=== PATIENT | female | born 1970 | race African-American/Black ===

== ENCOUNTER 2019-11-12 16:22 | Outpatient (CLI) | payer OTHER, SELFPAY ==
[2019-11-12 16:59] LABS: Basophils Percent Auto 0.2 % (0.2-1.2); Eosinophils Absolute Auto 0.1 K/mm3 (0-0.3); Eosinophils Percent Auto 1.7 % (0-4.4); Hematocrit 38.7 % (37.0-47.0); Hemoglobin 12.1 g/dL (12.0-15.0); Immature Granulocyte Absolute 0.02 K/mm3 (0.00-0.031); Immature Granulocyte Percent A 0.2 % (0-0.5); Lymphocytes Absolute Auto 2.71 K/mm3 (0.9-3.2); Lymphocytes Percent Auto 32.8 % (18.3-44.2); Mean Corpuscular HGB Conc 31.3 g/dl (32-36); Mean Corpuscular Hemoglobin 24.1 pg (26-34); Mean Corpuscular Volume 77.1 fl (80-100); Mean Platelet Volume 9.8 fl (7.4-10.4); Monocytes Absolute Auto 0.8 K/mm3 (0.1-0.6); Monocytes Percent Auto 9.8 % (2.6-8.5); Neutrophils Absolute Auto 4.6 K/mm3 (1.3-6.7); Neutrophils Percent Auto 55.3 % (45.5-73.1); Platelet Count Result 319 k/mm3 (150-375); Red Blood Count 5.02 M/mm3 (4.2-5.4); White Blood Count 8.3 K/mm3 (4.5-10.0)
[2019-11-12 19:13] LABS: Iron 58 ug/dL (37-170)
[2019-11-12 19:33] LABS: Percent Iron Saturation 18 % (20-50)
== END 2019-11-12 16:23 | disposition home or self-care (01) ==
LOC: ANHLAB 16:23
PROVIDERS: PCP Nurse Practitioner Adult Health; Visit Provider Internal Medicine Hematology & Oncology
DX: D64.9 Anemia, unspecified (principal)
CPT/HCPCS: 36415; 82728; 83540; 83550; 85025

== ENCOUNTER 2020-07-21 17:22 | Outpatient (CLI) | payer OTHER, SELFPAY ==
--- NOTE | ~2020-07-21 | MM_ITS ---
EXAMINATION: MM screening nolan BI w kenneth HISTORY: Screening TECHNIQUE: Craniocaudal and mediolateral oblique 3-D tomosynthesis images were obtained and synthetic 2-D images were generated. CAD analysis was submitted and interpreted. COMPARISON: Comparison to multiple prior studies sequentially, with oldest reviewed study dated 05/31. BREAST PARENCHYMAL COMPOSITION: There are scattered areas of fibroglandular density. FINDINGS: There is no evidence of suspicious mass, calcification, or architectural distortion to sugg est malignancy in either breast. There has been no suspicious interval change. IMPRESSION: 1. No mammographic evidence of malignancy. 2. Recommend routine screening mammography in one year. BI-RADS Category 1: Negative Reviewed, dictated and finalized at location [facility].
== END 2020-07-21 17:23 | disposition home or self-care (01) ==
PROVIDERS: PCP Nurse Practitioner Adult Health; Visit Provider Nurse Practitioner Adult Health
DX: Z12.31 Encounter for screening mammogram for malignant neoplasm of breast (principal)
CPT/HCPCS: 77063; 77067

== ENCOUNTER 2020-08-18 12:33 | Outpatient (CLI) | payer OTHER, SELFPAY ==
[2020-08-21 12:59] LABS: DHEA-Sulfate 76 mcg/dL (19-231)
[2020-08-22 10:06] LABS: Testosterone Total 84 ng/dL (2-45)
[2020-08-24 10:55] LABS: Estradiol, Ultrasensitive 19 pg/mL; FSH 48.9 mIU/mL (***); LH 22.3 mIU/mL (***); Progesterone <0.2 ng/mL (***); Prolactin 53.5 ng/mL (***)
== END 2020-08-18 12:34 | disposition home or self-care (01) ==
LOC: ANHLAB 12:34
PROVIDERS: PCP Nurse Practitioner Adult Health; Visit Provider Student in an Organized Health Care Education/Training Program
DX: N92.6 Irregular menstruation, unspecified (principal)
CPT/HCPCS: 36415; 82627; 82670; 83001; 83002; 84144; 84146; 84403; 84443

== ENCOUNTER 2020-08-27 16:21 | Outpatient (CLI) | payer OTHER, SELFPAY ==
--- NOTE | ~2020-08-27 | US_ITS ---
EXAMINATION: US pelvic complete w TV DATE: 08/27/2020 17:01 INDICATION: Irregular menstruation. TECHNIQUE: Multiple transabdominal and endovaginal sonographic images of the pelvis were obtained. COMPARISON: None. FINDINGS: The uterus measures 5.8 x 3.6 x 2.5 cm. The endometrial complex measures 3 mm in thickness which is normal. 1.7 x 1.8 x 1.5 cm subserosal fibroid extending cephalad from the uterine fundus. The right o vary measures 1.8 x 2.1 x 1.6 cm. The left ovary measures 1.5 x 1.3 x 2.4 cm. Vascular flow identifie d at both ovaries on color Doppler. There is no free fluid in the pelvis. IMPRESSION: 1. 1.8 cm subserosal fibroid at the uterine fundus. Reviewed, dictated and finalized at [facility]. 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
== END 2020-08-27 16:22 | disposition home or self-care (01) ==
PROVIDERS: PCP Nurse Practitioner Adult Health; Visit Provider Student in an Organized Health Care Education/Training Program
DX: N92.6 Irregular menstruation, unspecified (principal); D25.9 Leiomyoma of uterus, unspecified
CPT/HCPCS: 76830; 76856

== ENCOUNTER 2020-10-31 13:32 | Outpatient (CLI) | payer OTHER, SELFPAY ==
[2020-10-31 14:39] LABS: Total Triiodothyronine (T3) 1.25 NG/ML (0.97-1.69)
== END 2020-10-31 13:33 | disposition home or self-care (01) ==
PROVIDERS: PCP Nurse Practitioner Adult Health; Visit Provider Student in an Organized Health Care Education/Training Program
DX: N92.6 Irregular menstruation, unspecified (principal)
CPT/HCPCS: 36415; 84439; 84443; 84480

== ENCOUNTER 2020-11-20 12:38 | Outpatient (CLI) | payer OTHER, SELFPAY | END 2020-11-20 12:39 | disposition home or self-care (01) | PROVIDERS: PCP Nurse Practitioner Adult Health; Visit Provider Student in an Organized Health Care Education/Training Program | DX: N92.6 Irregular menstruation, unspecified (principal) | CPT/HCPCS: 36415; 83520 ==

== ENCOUNTER 2021-08-02 08:37 | Outpatient (CLI) | payer OTHER, SELFPAY ==
--- NOTE | ~2021-08-02 | MM_ITS ---
EXAMINATION: MM screening nolan BI w kenneth HISTORY: Screening mammogram TECHNIQUE: Craniocaudal and mediolateral oblique 3-D tomosynthesis images were obtained and synthetic 2-D images were generated. CAD analysis was submitted and interpreted. COMPARISON: No prior mammogram is available for comparison at this institution. BREAST PARENCHYMAL COMPOSITION: There are scattered areas of fibroglandular density. FINDINGS: There is no evidence of suspicious mass, calcification, or architectural distortion to sugg est malignancy in either breast. There has been no suspicious interval change. IMPRESSION: 1. No mammographic evidence of malignancy. 2. Recommend routine screening mammography in one year. BI-RADS Category 1: Negative Reviewed, dictated and finalized at location A.
== END 2021-08-02 08:38 | disposition home or self-care (01) ==
LOC: ANHIMG 08:37
PROVIDERS: PCP Nurse Practitioner Adult Health; Visit Provider Nurse Practitioner Adult Health
DX: Z12.31 Encounter for screening mammogram for malignant neoplasm of breast (principal)
CPT/HCPCS: 77063; 77067

== ENCOUNTER 2021-09-09 12:22 | Outpatient (CLI) | payer OTHER, SELFPAY ==
--- NOTE | ~2021-09-09 | MM_ITS ---
EXAMINATION: MM diagnostic nolan LT w kenneth HISTORY: Left breast pain TECHNIQUE: ML, MLO and craniocaudal 3-D tomosynthesis images of left breast were performed and synthe tic 2-D images were generated. Rotated lateral craniocaudal view of left breast. CAD analysis was sub mitted and interpreted. COMPARISON: 08/02/2021, 07/21/2020, 07/18/2019bilateral screening mammogram examinations BREAST PARENCHYMAL COMPOSITION: The breasts are almost entirely fatty. FINDINGS: No suspicious mass or architectural distortion, malignant calcification, skin thickening or retraction or significant new or developing density is detected. IMPRESSION: 1. No mammographic evidence of malignancy 2. Routine mammographic screening is recommended BI-RADS Category 1: Negative Reviewed, dictated and finalized at location A. 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
== END 2021-09-09 12:23 | disposition home or self-care (01) ==
PROVIDERS: PCP Nurse Practitioner Adult Health; Visit Provider Student in an Organized Health Care Education/Training Program
DX: N64.4 Mastodynia (principal)
CPT/HCPCS: 77061; 77065; G0279

== ENCOUNTER → 2021-10-08 00:11 | Outpatient (CLI) | payer OTHER, SELFPAY ==
[2021-10-09 16:52] LABS: SARS-CoV-2 RNA PCR Negative
== END ==
PROVIDERS: PCP Nurse Practitioner Adult Health; Visit Provider Internal Medicine Gastroenterology
DX: Z01.812 Encounter for preprocedural laboratory examination (principal); Z20.822 Contact with and (suspected) exposure to COVID-19
CPT/HCPCS: C9803; U0003; U0005

== ENCOUNTER 2021-10-11 00:51 | Day surgery (SDC) | payer OTHER, SELFPAY ==
[2021-09-23 14:02] VITALS: BMI 32.4
[2021-10-11 06:17] VITALS: BP 135/90; PULSE 95; RESP 18; TEMP 36.8; O2SAT 99; BMI 32.1
[2021-10-11] MEDS: LACTATED RINGERS 1,000 ML 150 ML IV CONT (06:43)
--- NOTE | 2021-10-11 07:04 | WPDANESEPPF ---
Anes - Initial Pre Proc Eval Procedure: Operation Date: 10/11/21 07:30 Proposed Procedures p Screening Colonoscopy - Binh Ramirez MD Date/Time: 10/11/21 07:04 Surgeon: Binh Ramirez MD Pre Op Diagnosis: neoplasm screening Patient Data Age: 51 Gender: F Height: 1.65 m Weight: 87.6 kg Last Vital Signs Temp 36.8 C 10/11/21 06:17 Pulse 95 10/11/21 06:17 Resp 18 10/11/21 06:17 BP 135/90 10/11/21 06:17 Pulse Ox 99 10/11/21 06:17 Allergies Allergy/AdvReac Type Severity Reaction Status Date / Time dexlansoprazole Allergy Severe Hives / Verified 10/11/21 06:27 Red Face pregabalin Allergy Severe Anaphylactic Verified 10/11/21 06:27 Shock wheat Allergy Severe GI ISSUES Verified 10/11/21 06:27 lactose Allergy Intermediate GI ISSUES Verified 10/11/21 06:27 topiramate Allergy Intermediate Rash Verified 10/11/21 06:27 cimetidine Allergy Mild HIVES Verified 10/11/21 06:27 Penicillins Allergy Mild HIVES, Verified 10/11/21 06:27 ITCHING ranitidine Allergy Mild HIVES Verified 10/11/21 06:27 tramadol Allergy Mild SWELLING Verified 10/11/21 06:27 LOWER EXTREMITIES. TRIMETHOBENZAMIDE HCL Allergy Unknown Abdominal Uncoded 10/11/21 06:27 Pain PAPER TAPE AdvReac Severe SKIN Uncoded 10/11/21 06:27 IRRITATION TO SITE Home Medications Medication Instructions Recorded Confirmed Type Lactobacillus rhamnosus GG 5 5,000 mmu cells PO DAILY 08/18/20 10/11/21 History billion cell chewable tablet albuterol sulfate 90 mcg/actuation 1 inh INHALATION Q4H 08/18/20 10/11/21 History aerosol inhaler ascorbate calcium (vitamin C) 500 500 mg PO DAILY 08/18/20 10/11/21 History mg tablet biotin 5,000 mcg disintegrating 10,000 mcg PO DAILY 08/18/20 10/11/21 History tablet cholecalciferol (vitamin D3) 125 125 mcg PO DAILY 08/18/20 10/11/21 History mcg (5,000 unit) capsule esomeprazole magnesium 20 mg 20 mg PO DAILY 08/18/20 10/11/21 History capsule,delayed release ferrous sulfate 325 mg (65 mg 325 mg PO DAILY 08/18/20 10/11/21 History iron) tablet multivitamin 1 tablet PO DAILY 08/18/20 10/11/21 History vitamins A,C,Z-iihs-ivbjzv 14,320 1 cap PO BID 08/20/21 10/11/21 History unit-226 mg-200 unit capsule Patient hx anesthesia problems: none Family hx anesthesia problems: none Results Review: All pre-operative results and documents have been reviewed as part of the pre-operative evaluation. [facility] Past Medical History Medical History Abnormal uterine bleeding Anemia Angina at rest Anxiety Asthma Bulging disc Depression Diabetes Dry senile macular degeneration Fibromyalgia Fractures toe GERD (gastroesophageal reflux disease) Hyperlipidemia Hypertension Nuclear age-related cataract, both eyes Sleep difficulties Ulcer Surgical History Surgical History H/O dilation and curettage Hx of cholecystectomy Family History Family History Grandparent Heart disease Diabetes mellitus Hypertension Social History Social History Smoking status: Never smoker Gender identity (if verbalized by the patient): Female Anes - Eval Final PreProcedure Day of Procedure 10/11/21 07:04 Patient weight: obese Heart: regular rate and rhythm Lungs: clear to auscultation Airway: Mallampati scale class II Neurological: alert and oriented Last oral intake: >/= 8 hours ASA classification: III Emergent: no Anesthetic plan: proceed Anesthesia type and monitoring: general GIVS and standard monitoring Results Review: All pre-operative results and documents have been reviewed as part of the pre-operative evaluation. Informed Consent: The patient's anesthetic plan and its attendant risks and benefits were discussed with maryanne
--- NOTE | 2021-10-11 07:23 | PM.HPGS ---
History of Present Illness History of Present Illness Consent: Risks, benefits, and alternatives have been discussed and questions answered. Patient agrees to proceed with procedure. Chief complaint: neoplasm screening Narrative: Marcellus Aguila is a 51 year old female here for first screening colonoscopy Review of Systems Constitutional: Constitutional: Denies headache(s) and Denies weakness Eyes: Eyes: Denies blurry vision ENT: Reports Normal hearing present, Denies headache(s) and Denies neck pain Cardiovascular: Cardiovascular: Denies chest pain and Denies dyspnea Respiratory: Respiratory: Denies dyspnea Gastrointestinal: Gastrointestinal: Reports no additional gastrointestinal complaints Genitourinary: Genitourinary: Denies dysuria Musculoskeletal: Musculoskeletal: Denies neck pain Integumentary/Breasts: Skin/Breast: Denies dry skin Neurologic: Reports Normal hearing present, Denies headache(s) and Denies weakness Psychiatric: Psychiatric: Denies anxiety Endocrine: Endocrine: Denies change in body appearance Hematologic/Lymphatic: Hematologic/Lymphatic: Denies easy bleeding Allergic/Immunologic: Allergic/Immunologic: Denies urticaria [facility] Past Medical History Medical History (Updated 10/11/21 @ 07:24 by Binh Ramirez MD) Abnormal uterine bleeding Anemia Angina at rest Anxiety Asthma Bulging disc Colon cancer screening Depression Diabetes Dry senile macular degeneration Fibromyalgia Fractures toe GERD (gastroesophageal reflux disease) Hyperlipidemia Hypertension Nuclear age-related cataract, both eyes Sleep difficulties Ulcer Surgical History Surgical History H/O dilation and curettage Hx of cholecystectomy Family History Family History Grandparent Heart disease Diabetes mellitus Hypertension Social History Social History Smoking status: Never smoker Gender identity (if verbalized by the patient): Female Meds Home Medications and Allergies Home Medications Medication Instructions Recorded Confirmed Type Lactobacillus rhamnosus GG 5 5,000 mmu cells PO DAILY 08/18/20 10/11/21 History billion cell chewable tablet albuterol sulfate 90 mcg/actuation 1 inh INHALATION Q4H 08/18/20 10/11/21 History aerosol inhaler ascorbate calcium (vitamin C) 500 500 mg PO DAILY 08/18/20 10/11/21 History mg tablet biotin 5,000 mcg disintegrating 10,000 mcg PO DAILY 08/18/20 10/11/21 History tablet cholecalciferol (vitamin D3) 125 125 mcg PO DAILY 08/18/20 10/11/21 History mcg (5,000 unit) capsule esomeprazole magnesium 20 mg 20 mg PO DAILY 08/18/20 10/11/21 History capsule,delayed release ferrous sulfate 325 mg (65 mg 325 mg PO DAILY 08/18/20 10/11/21 History iron) tablet multivitamin 1 tablet PO DAILY 08/18/20 10/11/21 History vitamins A,C,R-uctk-fwmomj 14,320 1 cap PO BID 08/20/21 10/11/21 History unit-226 mg-200 unit capsule Allergies Allergy/AdvReac Type Severity Reaction Status Date / Time dexlansoprazole Allergy Severe Hives / Verified 10/11/21 06:27 Red Face pregabalin Allergy Severe Anaphylactic Verified 10/11/21 06:27 Shock wheat Allergy Severe GI ISSUES Verified 10/11/21 06:27 lactose Allergy Intermediate GI ISSUES Verified 10/11/21 06:27 topiramate Allergy Intermediate Rash Verified 10/11/21 06:27 cimetidine Allergy Mild HIVES Verified 10/11/21 06:27 Penicillins Allergy Mild HIVES, Verified 10/11/21 06:27 ITCHING ranitidine Allergy Mild HIVES Verified 10/11/21 06:27 tramadol Allergy Mild SWELLING Verified 10/11/21 06:27 LOWER EXTREMITIES. TRIMETHOBENZAMIDE HCL Allergy Unknown Abdominal Uncoded 10/11/21 06:27 Pain PAPER TAPE AdvReac Severe SKIN Uncoded 10/11/21 06:27 IRRITATION TO SITE Vital Signs Vital Signs - 24 hr
[2021-10-11 07:41] VITALS: BP 105/72; PULSE 94; RESP 16; O2SAT 100
[2021-10-11 07:51] VITALS: BP 114/77; PULSE 78; RESP 15; O2SAT 98
[2021-10-11 08:01] VITALS: BP 131/90; PULSE 83; RESP 17; O2SAT 97
== END 2021-10-11 08:26 | disposition home or self-care (01) ==
PROVIDERS: PCP Nurse Practitioner Adult Health; Visit Provider Internal Medicine Gastroenterology
PROC: 0DJD8ZZ Inspection of Lower Intestinal Tract, Via Natural or Artificial Opening Endoscopic (ICD-10-PCS; CPT 45378; principal; 2021-10-11 07:30)
DX: Z12.11 Encounter for screening for malignant neoplasm of colon (principal); K57.30 Diverticulosis of large intestine without perforation or abscess without bleeding; D64.9 Anemia, unspecified; F32.9 Major depressive disorder, single episode, unspecified; E11.9 Type 2 diabetes mellitus without complications; K21.9 Gastro-esophageal reflux disease without esophagitis; M79.7 Fibromyalgia; I10 Essential (primary) hypertension; E78.5 Hyperlipidemia, unspecified; I20.8 Other forms of angina pectoris; Z79.51 Long term (current) use of inhaled steroids; F41.8 Other specified anxiety disorders; Z90.49 Acquired absence of other specified parts of digestive tract
CPT/HCPCS: 45378; J2704; J7120

== ENCOUNTER 2022-05-25 09:11 | Outpatient (CLI) | payer OTHER, SELFPAY ==
--- NOTE | 2022-05-31 07:52 | WPDHOLTEREM ---
Holter/Event Monitor Holter/Event Monitor Date of procedure: 05/25/22 Holter/Event Procedure: 48 Hr Holter Monitor Indications: Palpitations Conclusion: 1. 48 hour holter monitor on 05/25/22. 2. Underlying rhythm is sinus rhythm. HR range 44-156 bpm; average HR 85 bpm. HR at 44 bpm was at 06:20. HR at 156 bpm was at 08:00. 3. There are 12 premature supraventricular complexes. No supraventricular tachycardia. 4. No premature ventricular complexes. No ventricular tachycardia. 5. No sinoatrial or atrioventricular blocks. No significant pauses greater than 2 seconds. 6. No symptoms available for correlation.
== END 2022-05-25 09:12 | disposition home or self-care (01) ==
LOC: ANHCARD 09:14
PROVIDERS: PCP Nurse Practitioner Adult Health; Visit Provider Nurse Practitioner Adult Health
DX: R00.2 Palpitations (principal)
CPT/HCPCS: 93225; 93226

== ENCOUNTER 2022-07-03 12:38 | Emergency (ER) | payer OTHER, SELFPAY ==
--- NOTE | ~2022-07-03 | CT_ITS ---
EXAMINATION: CTA chest PE protocol DATE: 07/03/2022 14:58 INDICATION: Hemoptysis, chest pain, midsternal pressure, shortness of breath, tachycardia. TECHNIQUE: Computed tomography angiography (CTA) of the chest was performed with 100 mL Omnipaque-350 intravenous contrast timed to evaluate the pulmonary arteries. Coronal maximum intensity projection 3D-reconstructions were created by the technologist. Automated exposure control and iterative reconst ruction technique were employed. Exam dose: 618.56 mGy-cm total exam DLP. COMPARISON: 01/05/2018 PA and lateral chest FINDINGS: There is diagnostic contrast enhancement of the pulmonary arteries and no evidence of pulmo nary embolism. No thoracic aortic aneurysm or dissection. No pericardial or pleural effusion. No hilar or mediastinal mass lesion or lymphadenopathy. Thyroid goiter with enlargement, heterogeneous enhancement and substernal extension. No pulmonary consolidation or pulmonary mass lesion or pneumothorax. Normal morphology of the adrenal glands. Status post cholecystectomy. Diverticulosis of the colon. Degenerative spurring of the thoracic spine. No suspicious osteolytic or osteoblastic lesions. IMPRESSION: No evidence of pulmonary embolism Thyroid goiter with substernal extension Status post cholecystectomy Diverticulosis of the colon Reviewed, dictated and finalized at [facility]. Reviewed, dictated and finalized at location A.
[2022-07-03 12:41] VITALS: BP 133/82; PULSE 100; RESP 16; TEMP 36.2; O2SAT 100
--- NOTE | 2022-07-03 13:18 | ECG_ITS ---
Measurements Intervals [place] Rate: 93 P: 41 WA: 130 QRS: 19 QRSD: 93 T: 38 QT: 360 QTc: 450 Interpretive Statements SINUS RHYTHM LEFT VENTRICULAR HYPERTROPHY MINIMAL Q WAVES- HIGH LATERAL LEADS NONSPECIFIC T-WAVE ABNORMALITY- ANTEROLAT/INF LEADS BORDERLINE ECG NO PREVIOUS ECG AVAILABLE FOR COMPARISON Electronically Signed On 07-03-2022 13:56:12 CDT by Carl Madera D.O.
--- NOTE | 2022-07-03 13:19 | ED.URI ---
HPI - URI/Sore Throat General Chief Complaint: Upper Respiratory Infection Stated Complaint: COVID + 6 days ago - shortness of breath - cough Time Seen by Provider: 07/03/22 13:06 History of Present Illness HPI Narrative: Patient is a 51-year-old female with a history of asthma and diabetes here for evaluation of chest pain, shortness of breath for the past several days and hemoptysis for the past day in the setting of a positive COVID test 6 days ago. Patient was seen by her primary care doctor upon symptom onset and was given prednisone taper with slight improvement of her upper respiratory symptoms, but she presents today to be evaluated for the hemoptysis. She states that occasionally when she coughs she notes a pink tinge to the sputum with red streaks along the side. Has had several nosebleeds recently. No nausea, vomiting, fevers, chills, leg swelling. Related Data Home Medications Medication Instructions Recorded Confirmed Lactobacillus rhamnosus GG 5 5,000 mmu cells PO DAILY 08/18/20 10/11/21 billion cell chewable tablet ([employer] albuterol sulfate 90 mcg/actuation 1 inh inhalation Q4H 08/18/20 10/11/21 aerosol inhaler (Proventil HFA) ascorbate calcium (vitamin C) 500 500 mg PO DAILY 08/18/20 10/11/21 mg tablet biotin 5,000 mcg disintegrating 10,000 mcg PO DAILY 08/18/20 10/11/21 tablet cholecalciferol (vitamin D3) 125 125 mcg PO DAILY 08/18/20 10/11/21 mcg (5,000 unit) capsule esomeprazole magnesium 20 mg 20 mg PO DAILY 08/18/20 10/11/21 capsule,delayed release (Nexium) ferrous sulfate 325 mg (65 mg 325 mg PO DAILY 08/18/20 10/11/21 iron) tablet (Feosol) multivitamin (Daily Multi-Vitamin 1 tablet PO DAILY 08/18/20 10/11/21 tablet) vitamins A,C,O-ojdu-pslgvv 14,320 1 cap PO BID 08/20/21 10/11/21 unit-226 mg-200 unit capsule (PreserVision AREDS) Allergies Allergy/AdvReac Type Severity Reaction Status Date / Time dexlansoprazole Allergy Severe Hives / Verified 10/11/21 06:27 Red Face pregabalin Allergy Severe Anaphylactic Verified 10/11/21 06:27 Shock wheat Allergy Severe GI ISSUES Verified 10/11/21 06:27 lactose Allergy Intermediate GI ISSUES Verified 10/11/21 06:27 topiramate Allergy Intermediate Rash Verified 10/11/21 06:27 cimetidine Allergy Mild HIVES Verified 10/11/21 06:27 Penicillins Allergy Mild HIVES, Verified 10/11/21 06:27 ITCHING ranitidine Allergy Mild HIVES Verified 10/11/21 06:27 tramadol Allergy Mild SWELLING Verified 10/11/21 06:27 LOWER EXTREMITIES. adhesive tape AdvReac Severe PAPER Verified 07/03/22 15:32 TAPE=SKIN IRRITATION TO SITE trimethobenzamide AdvReac Unknown Abdominal Verified 07/03/22 15:32 Pain Review of Systems Review of Systems: Gen: Denies fevers or chills Eyes: Denies eye pain or visual change ENT: reports nosebleed and congestion. Respiratory: reports cough, SOB CV: Denies chest pain or palpitations GI: Denies abdominal pain nausea, emesis or diarrhea : denies burning, urgency, frequency or hematuria Musculoskeletal: Denies back pain or muscle pain Neuro: denies numbness, tingling, weakness or focal weakness Skin: Denies rash Except as documented, all other systems reviewed and negative [facility] Past Medical History Medical History Abnormal uterine bleeding Anemia Angina at rest Anxiety Asthma Bulging disc Colon cancer screening Depression Diabetes Dry senile macular degeneration Fibromyalgia Fractures toe GERD (gastroesophageal reflux disease) Hyperlipidemia Hypertension Nuclear age-related cataract, both eyes Sleep difficulties Ulcer Surgical History Surgical History H/O dilation and curettage Hx of cholecystectomy Family History Family History Grandparent Heart disease Diabetes
[2022-07-03 13:36] LABS: Basophils Percent Auto 0.2 % (0.2-1.2); Eosinophils Absolute Auto 0.1 K/mm3 (0-0.3); Eosinophils Percent Auto 0.7 % (0-4.4); Hematocrit 43.7 % (37.0-47.0); Hemoglobin 13.8 g/dL (12.0-15.0); Immature Granulocyte Absolute 0.07 K/mm3 (0.00-0.031); Immature Granulocyte Percent A 0.7 % (0-0.5); Lymphocytes Absolute Auto 3.49 K/mm3 (0.9-3.2); Mean Corpuscular HGB Conc 31.6 g/dl (32-36); Mean Corpuscular Hemoglobin 25.7 pg (26-34); Mean Corpuscular Volume 81.5 fl (80-100); Mean Platelet Volume 9.6 fl (7.4-10.4); Monocytes Absolute Auto 0.6 K/mm3 (0.1-0.6); Neutrophils Percent Auto 58.4 % (45.5-73.1); Platelet Count Result 316 k/mm3 (150-375); Red Blood Count 5.36 M/mm3 (4.2-5.4); Red Cell Distribution Width 14.1 % (11.5-14.5); White Blood Count 10.3 K/mm3 (4.5-10.0)
[2022-07-03 13:47] LABS: INR 1.1; Prothrombin Time 13.8 Seconds (11.1-14.7)
[2022-07-03 13:48] LABS: Partial Thromboplastin Time 24.8 SECONDS (22.3-36.8)
[2022-07-03 13:50] LABS: Alanine Aminotransferase 52 U/L (6-35); Albumin Level 4.3 g/dL (3.5-5.1); Alkaline Phosphatase 69 U/L (38-126); Anion Gap 9 mmol/L (8-16); Aspartate Amino Transferase 40 U/L (14-36); Bilirubin,Total 0.6 mg/dL (0.2-1.3); Blood Urea Nitrogen 15 mg/dL (7-17); Calcium 8.8 mg/dL (8.4-10.2); Carbon Dioxide 25 mmol/L (22-30); Chloride 104 mmol/L (98-107); Estimated CRCL calculation 80 ml/min; Estimated Glomerular Filt Rate > 60; Glucose 175 mg/dL (65-110); Potassium 3.4 mmol/L (3.4-5.0); Sodium 138 mmol/L (137-145)
[2022-07-03 14:01] LABS: Troponin I < 0.012 ng/mL (0.000-0.034)
[2022-07-03] MEDS: ALBUTEROL SULFATE NEB 2.5 MG/3 ML INH 5 MG INHALATION (15:38)
[2022-07-03 17:00] VITALS: BP 121/78; PULSE 80; RESP 16; O2SAT 100
== END 2022-07-03 17:06 | disposition home or self-care (01) ==
PROVIDERS: Physician Assistant; Emergency Provider Emergency Medicine; PCP Nurse Practitioner Adult Health
DX: U07.1 COVID-19 (principal); J06.9 Acute upper respiratory infection, unspecified; E11.9 Type 2 diabetes mellitus without complications; M79.7 Fibromyalgia; K21.9 Gastro-esophageal reflux disease without esophagitis; E78.5 Hyperlipidemia, unspecified; I10 Essential (primary) hypertension; Z86.2 Personal history of diseases of the blood and blood-forming organs and certain disorders involving the immune mechanism; R94.31 Abnormal electrocardiogram [ECG] [EKG]; E04.0 Nontoxic diffuse goiter; K57.90 Diverticulosis of intestine, part unspecified, without perforation or abscess without bleeding
CPT/HCPCS: 36415; 71275; 80053; 81025; 84484; 85025; 85610; 85730; 93005; 94640; 99284; Q9967

== ENCOUNTER 2022-08-08 09:46 | Outpatient (CLI) | payer OTHER, SELFPAY ==
--- NOTE | ~2022-08-08 | US_ITS ---
EXAMINATION: US thyroid DATE: 08/08/2022 11:02 INDICATION: Disorder of thyroid gland TECHNIQUE: Multiple ultrasound images of the thyroid were obtained. COMPARISON: 10/26/2009 FINDINGS: The right thyroid lobe measures 6.7 x 2.8 x 3.1 cm. The left thyroid lobe measures 6.2 x 2.6 x 2.9 c m. There are 3 wider than tall solid to hypoechoic nodules with partially smooth, partially indistin ct margins (TI-RADS 4, moderately suspicious , FNA if >=1.5 cm, annual followup is >=1 cm) measuring 3.0 cm and 2.8 cm in maximal diameters in the right thyroid lobe and 3.6 cm the left thyroid lobe. Th e 2 nodules in the There is normal echotexture, echogenicity and vascular flow throughout the surroun ding thyroid gland. IMPRESSION: 1. Multinodular goiter with 3 TI RADS 4 nodules measuring 2.8-3.6 cm all meeting criteria for biopsy. Recommend ultrasound-guided biopsy of the largest nodules at the inferior left thyroid. Reviewed, dictated and finalized at location [facility]. IMPRESSION: 1. Multinodular goiter with 3 TI RADS 4 nodules measuring 2.8-3.6 cm all meetin g criteria for biopsy. Recommend ultrasound-guided biopsy of the largest nodule s at the inferior left thyroid.
== END 2022-08-08 09:47 | disposition home or self-care (01) ==
PROVIDERS: PCP Nurse Practitioner Adult Health; Visit Provider Nurse Practitioner Adult Health
DX: E04.2 Nontoxic multinodular goiter (principal)
CPT/HCPCS: 76536

== ENCOUNTER 2022-08-13 09:03 | Outpatient (CLI) | payer OTHER, SELFPAY ==
--- NOTE | ~2022-08-13 | MM_ITS ---
EXAMINATION: MM screening nolan BI w kenneth HISTORY: Screening mammogram TECHNIQUE: Craniocaudal and mediolateral oblique 3-D tomosynthesis images were obtained and synthetic 2-D images were generated. CAD analysis was submitted and interpreted. COMPARISON: 09/09/2021 diagnostic left mammogram 08/02/2021, 07/21/2020, 07/18/2019 bilateral screening mammogram examinations BREAST PARENCHYMAL COMPOSITION: There are scattered areas of fibroglandular density. FINDINGS: There is no evidence of suspicious mass, calcification, or architectural distortion to sugg est malignancy in either breast. There has been no suspicious interval change. IMPRESSION: 1. No mammographic evidence of malignancy. 2. Recommend routine screening mammography in one year. BI-RADS Category 1: Negative Reviewed, dictated and finalized at location A. 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
== END 2022-08-13 09:04 | disposition home or self-care (01) ==
PROVIDERS: PCP Nurse Practitioner Adult Health; Visit Provider Nurse Practitioner Adult Health
DX: Z12.31 Encounter for screening mammogram for malignant neoplasm of breast (principal)
CPT/HCPCS: 77063; 77067

== ENCOUNTER 2022-10-06 10:34 | Emergency (ER) | payer OTHER, SELFPAY ==
--- NOTE | ~2022-10-06 | CT_ITS ---
Non-contrast CT scan of the Pelvis Clinical indication: Pain, status post fall Technique: 2.5 mm axial scans were obtained through the pelvis without intravenous or oral contrast. Dose reduction technique was used on this scan by utilizing automated exposure control and iterative reconstruction technique. The dose-length product (DLP) was 361.82 mGy-cm. Findings: Urinary bladder unremarkable. No pelvic mass seen. No lymphadenopathy. No ascites. Visualiz ed bowel loops are unremarkable. No fracture or dislocation seen. Osseous alignment is anatomic. Bilateral hip and SI joints are unrem arkable in appearance. No joint effusion evident. Impression: Unremarkable exam. No fracture or other osseous/articular abnormality seen. Reviewed, dictated and finalized at location . ING COORDINATOR Impression: Unremarkable exam. No fracture or other osseous/articular abnormality seen.
--- NOTE | ~2022-10-06 | CT_ITS ---
Noncontrast CT scan of the thoracic spine CLINICAL HISTORY: Back pain, status post fall TECHNIQUE: Axial noncontrast imaging of the thoracic spine was performed. Sagittal and coronal reform atted images were constructed. Dose reduction technique was used on this scan by utilizing automated exposure control and iterative reconstruction technique. FINDINGS: No fracture or sublocation identified. Vertebral bodies maintain normal height and alignmen t. Intervertebral disc spaces are well preserved. No disc bulge or herniation seen. No spinal canal stenosis/cord compression evident. Paravertebral so ft tissues are unremarkable. IMPRESSION: Unremarkable exam. Reviewed, dictated and finalized at location M. GER MISSION IMPRESSION: Unremarkable exam.
[2022-10-06 10:53] VITALS: BP 142/92; PULSE 83; RESP 14; TEMP 36.4; O2SAT 100
[2022-10-06] MEDS: KETOROLAC (*BKC) 60 MG/2 ML VIAL IM (13:15)
--- NOTE | 2022-10-06 13:27 | ED.FALL ---
HPI - Fall General Chief Complaint: Fall <MASOUD Heredia Last Filed: 10/06/22 14:28> Stated Complaint: FALL, ENTIRE BODY PAIN <MASOUD Heredai Last Filed: 10/06/22 14:28> Time Seen by Provider: 10/06/22 12:01 <MASOUD Heredia Last Filed: 10/06/22 14:28> Source: patient <MASOUD Heredia Last Filed: 10/06/22 14:28> Mode of arrival: ambulatory <MASOUD Heredia Filed: 10/06/22 14:28> Limitations: no limitations <MASOUD Heredia Last Filed: 10/06/22 14:28> History of Present Illness HPI Narrative: Patient is a 52 y/o female who presents to the ED with c/o low back pain. Patient reports she tripped and fell down her concrete front steps 3 days ago. She landed with her low back and tailbone against the edge of the concrete step. She did not hit her head or lose consciousness. Denied prodromal symptoms. She reports having pain from the top of her shoulders down to her feet, with most the pain centered around her low back, tailbone, and into her R hip and RLE. She has been taking Tylenol at home with minimal relief. Denies numbness, weakness, bowel or bladder incontinence, fever, abdominal pain, nausea, vomiting. <MASOUD Heredia Last Filed: 10/06/22 14:28> Related Data Home Medications: Home Medications Medication Instructions Recorded Confirmed Lactobacillus rhamnosus GG 5 5,000 mmu cells PO DAILY 08/18/20 10/11/21 billion cell chewable tablet ([employer]) albuterol sulfate 90 mcg/actuation 1 inh inhalation Q4H 08/18/20 10/11/21 aerosol inhaler (Proventil HFA) ascorbate calcium (vitamin C) 500 500 mg PO DAILY 08/18/20 10/11/21 mg tablet biotin 5,000 mcg disintegrating 10,000 mcg PO DAILY 08/18/20 10/11/21 tablet cholecalciferol (vitamin D3) 125 125 mcg PO DAILY 08/18/20 10/11/21 mcg (5,000 unit) capsule ferrous sulfate 325 mg (65 mg 325 mg PO DAILY 08/18/20 10/11/21 iron) tablet (Feosol) multivitamin (Daily Multi-Vitamin 1 tablet PO DAILY 08/18/20 10/11/21 tablet) vitamins A,C,Q-qxzt-ablnza 14,320 1 cap PO BID 08/20/21 10/11/21 unit-226 mg-200 unit capsule (PreserVision AREDS) benzonatate 200 mg capsule 200 mg PO TID 09/06/22 <MASOUD Heredia Last Filed: 10/06/22 14:28> Allergies/Adverse Reactions: Allergies Allergy/AdvReac Type Severity Reaction Status Date / Time dexlansoprazole Allergy Severe Hives / Verified 10/06/22 10:36 Red Face pregabalin Allergy Severe Anaphylactic Verified 10/06/22 10:36 Shock wheat Allergy Severe GI ISSUES Verified 10/06/22 10:36 lactose Allergy Intermediate GI ISSUES Verified 10/06/22 10:36 topiramate Allergy Intermediate Rash Verified 10/06/22 10:36 cimetidine Allergy Mild HIVES Verified 10/06/22 10:36 Penicillins Allergy Mild HIVES, Verified 10/06/22 10:36 ITCHING ranitidine Allergy Mild HIVES Verified 10/06/22 10:36 tramadol Allergy Mild SWELLING Verified 10/06/22 10:36 LOWER EXTREMITIES. adhesive tape AdvReac Severe PAPER Verified 10/06/22 10:36 TAPE=SKIN IRRITATION TO SITE trimethobenzamide AdvReac Unknown Abdominal Verified 10/06/22 10:36 Pain <Mira Mccoy PA-C - Last Filed: 10/06/22 14:28> Review of Systems Review of Systems: CONSTITUTIONAL: Denies fever, chills, or sweats. EYES: Denies visual changes. ENT: Denies rhinorrhea, congestion, sore throat. CARDIOVASCULAR: Denies chest pain. RESPIRATORY: Denies dyspnea. GASTROINTESTINAL: Denies incontinence, abdominal pain, nausea, vomiting, or diarrhea. GENITOURINARY: Denies incontinence, dysuria or hematuria. SKIN: Denies rash or itching. MUSCULOSKELETAL: Reports pain to the low back, tailbone, right hip. NEUROLOGIC: Denies head injury, LOC, headache, numbness, or weakness. <Mira Mccoy PA-C - Last Filed: 10/06/22 14:28> All systems reviewed & are unremarkable excep
== END 2022-10-06 14:33 | disposition home or self-care (01) ==
PROVIDERS: Emergency Provider Emergency Medicine; PCP Family Medicine
DX: S39.012A Strain of muscle, fascia and tendon of lower back, initial encounter (principal); S30.0XXA Contusion of lower back and pelvis, initial encounter; J45.909 Unspecified asthma, uncomplicated; E11.9 Type 2 diabetes mellitus without complications; I10 Essential (primary) hypertension; E78.5 Hyperlipidemia, unspecified; M79.7 Fibromyalgia; K21.9 Gastro-esophageal reflux disease without esophagitis; Z86.16 Personal history of COVID-19; Z86.2 Personal history of diseases of the blood and blood-forming organs and certain disorders involving the immune mechanism; W10.9XXA Fall (on) (from) unspecified stairs and steps, initial encounter
CPT/HCPCS: 72128; 72192; 96372; 99284; J1885

== ENCOUNTER 2023-02-09 13:09 | Outpatient (CLI) | payer OTHER, SELFPAY ==
--- NOTE | ~2023-02-09 | US_ITS ---
EXAMINATION: US FNA w image guidance DATE: 02/09/2023 14:09 INDICATION: Left thyroid nodule. TECHNIQUE: The procedure and its benefits and risks were discussed with the patient. Risks specifically discusse d included bleeding. The patient verbalized understanding of the risks and agreed to proceed. The nec k was prepped and draped in the usual sterile manner. 1% lidocaine was used for local anesthesia. 6 passes were made with a 25G needle into the lesion under ultrasound guidance. There were no immedia te complications. FINDINGS: Grayscale ultrasound images demonstrate needles advanced into a 3.6 cm nodule in inferior left thyroi d lobe for biopsy. IMPRESSION: 1. Ultrasound-guided fine needle aspiration of a left thyroid nodule. Reviewed, dictated and finalized at location A.
== END 2023-02-09 13:10 | disposition home or self-care (01) ==
PROVIDERS: PCP Family Medicine
DX: E04.1 Nontoxic single thyroid nodule (principal)
CPT/HCPCS: 10005; 88173; 88305

== ENCOUNTER 2023-03-29 12:36 | Outpatient (CLI) | payer OTHER, SELFPAY ==
--- NOTE | ~2023-03-29 | US_ITS ---
EXAMINATION: US FNA w image guidance, US FNA additional DATE: 03/29/2023 13:41 INDICATION: Multiple thyroid nodules TECHNIQUE: A time-out was performed to verify the patient's name, date of , and procedure to be performed . The procedure and its benefits and risks were discussed with the patient. Risks specifically discus sed included bleeding and infection. The patient understood the risks and agreed to proceed. The neck was prepped and draped in the usual sterile manner. 3 mL 1% lidocaine was used for local anesthesia . Attention was first turned to the more cephalad nodule. 5 passes were made with a 25G needle into the lesion. Subsequently 5 additional passes were made with a 20 5G needle into the more caudal nodul e. Appropriate needle location was documented with continuous sonographic guidance. A sterile bandag e was applied. There were no immediate complications. FINDINGS: Grayscale ultrasound images demonstrate biopsy needles advanced into first the more cephalad 2.6 cm T I RADS 4 nodules in the mid right thyroid and subsequently into a 2.7 cm TI RADS 4 nodule in the infe rior right thyroid. IMPRESSION: 1. Successful ultrasound-guided fine needle aspiration of a 2.6 cm TI RADS 4 nodule in the mid right thyroid. 2. Successful ultrasound-guided fine needle aspiration of a 2.7 cm TI RADS 4 nodule in the inferior right thyroid. Reviewed, dictated and finalized at location A. IMPRESSION: 1. Successful ultrasound-guided fine needle aspiration of a 2.6 cm TI RADS 4 n odule in the mid right thyroid. 2. Successful ultrasound-guided fine needle aspiration of a 2.7 cm TI RADS 4 n odule in the inferior right thyroid.
== END 2023-03-29 12:37 | disposition home or self-care (01) ==
PROVIDERS: PCP Family Medicine
DX: E04.2 Nontoxic multinodular goiter (principal)
CPT/HCPCS: 10005; 10006; 88173; 88305

== ENCOUNTER 2023-09-22 14:11 | Outpatient (CLI) | payer OTHER, SELFPAY ==
--- NOTE | ~2023-09-22 | MM_ITS ---
EXAMINATION: MM screening nolan BI w kenneth HISTORY: Screening TECHNIQUE: Craniocaudal and mediolateral oblique 3-D tomosynthesis images were obtained and synthetic 2-D images were generated. CAD analysis was submitted and interpreted. COMPARISON: Comparison to multiple prior studies sequentially, with oldest reviewed study dated 01/2018. BREAST PARENCHYMAL COMPOSITION: There are scattered areas of fibroglandular density. FINDINGS: There is no evidence of suspicious mass, calcification, or architectural distortion to sugg est malignancy in either breast. There has been no suspicious interval change. IMPRESSION: 1. No mammographic evidence of malignancy. 2. Recommend routine screening mammography in one year. BI-RADS Category 1: Negative Reviewed, dictated and finalized at location A. R WORKER
== END 2023-09-22 14:12 | disposition home or self-care (01) ==
LOC: ANHIMG 14:13
PROVIDERS: PCP Family Medicine; Visit Provider Registered Nurse
DX: Z12.31 Encounter for screening mammogram for malignant neoplasm of breast (principal)
CPT/HCPCS: 77063; 77067

== ENCOUNTER 2023-11-02 16:20 | Outpatient (CLI) | payer OTHER, SELFPAY ==
[2023-11-02 19:27] LABS: Thyroid Stimulating Hormone Reflex 0.027 uIU/mL (0.465-4.68)
[2023-11-02 20:16] LABS: Free T4 Free Thyroxine Reflex 0.94 ng/dL (0.78-2.19)
[2023-11-02 22:13] LABS: Total Triiodothyronine (T3) 1.33 NG/ML (0.97-1.69)
[2023-11-07 11:14] LABS: DHEA-Sulfate 63 mcg/dL (8-188)
[2023-11-07 16:47] LABS: Testosterone Free 10.9 pg/mL (0.1-6.4); Testosterone Total 92 ng/dL (2-45)
[2023-11-08 05:48] LABS: FSH 64.6 mIU/mL (***)
== END 2023-11-02 16:21 | disposition home or self-care (01) ==
LOC: ANHLAB 16:21
PROVIDERS: PCP Family Medicine; Visit Provider Registered Nurse
DX: L68.0 Hirsutism (principal); N95.1 Menopausal and female climacteric states; E04.1 Nontoxic single thyroid nodule; E04.9 Nontoxic goiter, unspecified; Z87.42 Personal history of other diseases of the female genital tract
CPT/HCPCS: 36415; 82627; 83001; 84402; 84403; 84439; 84443; 84480

== ENCOUNTER 2023-11-20 08:43 | Outpatient (CLI) | payer OTHER, SELFPAY ==
--- NOTE | ~2023-11-20 | US_ITS ---
EXAMINATION: US pelvic complete w TV DATE: 11/20/2023 09:38 INDICATION: Left lower quadrant abdominal swelling. TECHNIQUE: Multiple transabdominal and transvaginal sonographic images of the pelvis were obtained. COMPARISON: None. FINDINGS: TRANSABDOMINAL ULTRASOUND: The uterus measures 5.3 x 2.1 x 3.3 cm. There is no free fluid in the pelvis. TRANSVAGINAL ULTRASOUND: The endometrial complex measures 3 mm in thickness. The right ovary measures 2.2 x 1.4 x 1.4 cm. The left ovary measures 2.4 x 1.7 x 1.3 cm. IMPRESSION: 1. Normal pelvis. Reviewed, dictated and finalized at location A. UT INSPECTOR IMPRESSION: 1. Normal pelvis.
== END 2023-11-20 08:44 | disposition home or self-care (01) ==
PROVIDERS: PCP Family Medicine; Visit Provider Registered Nurse
DX: R19.04 Left lower quadrant abdominal swelling, mass and lump (principal)
CPT/HCPCS: 76830; 76856

== ENCOUNTER 2024-09-16 15:29 | Emergency (ER) | payer OTHER, SELFPAY ==
--- NOTE | 2024-09-16 16:02 | ED.URI ---
HPI - URI/Sore Throat General Chief Complaint: Upper Respiratory Infection Stated Complaint: Upper Respiratory Symptoms/Right Side Pain Time Seen by Provider: 09/16/24 16:20 Source: patient Mode of arrival: ambulatory Limitations: no limitations History of Present Illness HPI Narrative: Marcellus is a 54-year-old female patient presenting to the clinic today with complaints of runny nose, sinus drainage, cough, sore throat, and head congestion times 4 days. She denies any fevers, chills, or body aches. No known sick contacts. Denies any shortness of breath or chest pain. She is also complaining of right upper abdominal pain that is been going on for 2-3 weeks. Pain is burning and sharp in nature. States that pain is worse when she bends forward and feels as though her stomach is flipping on itself and then she sits back and has extreme pain if she does not splint the area prior to leaning back. States the pain is worse with movement, coughing, or sneezing. History of cholecystectomy laparoscopic in 2016. Denies any changes in bowel. Last bowel movement was this morning and normal for the patient. Denies any nausea, vomiting, or diarrhea. No urinary symptoms. MD elicited complaint: cough, sore throat, nasal congestion and other (Abdominal pain) Related Data Home Medications Medication Instructions Recorded Confirmed Lactobacillus rhamnosus GG 5 5,000 mmu cells PO DAILY 08/18/20 12/07/22 billion cell chewable tablet ([employer] Probiotics) albuterol sulfate 90 mcg/actuation 1 inh inhalation Q4H 08/18/20 12/07/22 aerosol inhaler (Proventil HFA) ascorbate calcium (vitamin C) 500 500 mg PO DAILY 08/18/20 12/07/22 mg tablet biotin 5,000 mcg disintegrating 10,000 mcg PO DAILY 08/18/20 12/07/22 tablet cholecalciferol (vitamin D3) 125 125 mcg PO DAILY 08/18/20 12/07/22 mcg (5,000 unit) capsule ferrous sulfate 325 mg (65 mg 325 mg PO DAILY 08/18/20 12/07/22 iron) tablet (Feosol) multivitamin (Daily Multi-Vitamin 1 tablet PO DAILY 08/18/20 12/07/22 tablet) vitamins A,C,O-ptoe-giwgde 4,296 1 cap PO BID 08/20/21 12/07/22 mcg-226 mg-90 mg capsule (PreserVision AREDS) Allergies Allergy/AdvReac Type Severity Reaction Status Date / Time dexlansoprazole Allergy Severe Hives / Verified 09/16/24 16:21 Red Face pregabalin Allergy Severe Anaphylactic Verified 09/16/24 16:21 Shock wheat Allergy Severe GI ISSUES Verified 09/16/24 16:21 lactose Allergy Intermediate GI ISSUES Verified 09/16/24 16:21 topiramate Allergy Intermediate Rash Verified 09/16/24 16:21 cimetidine Allergy Mild HIVES Verified 09/16/24 16:21 Penicillins Allergy Mild HIVES, Verified 09/16/24 16:21 ITCHING ranitidine Allergy Mild HIVES Verified 09/16/24 16:21 tramadol Allergy Mild SWELLING Verified 09/16/24 16:21 LOWER EXTREMITIES. adhesive tape AdvReac Severe PAPER Verified 09/16/24 16:21 TAPE=SKIN IRRITATION TO SITE trimethobenzamide AdvReac Unknown Abdominal Verified 11/02/23 15:07 Pain Review of Systems Review of Systems: Pertinent positives per HPI. Patient denies any fever, chills, rash, headache, visual changes, dizziness, shortness of breath, chest pain, palpitations, nausea, vomiting, diarrhea, constipation, or any urinary issues. [facility] Past Medical History Medical History Abnormal uterine bleeding Anemia Angina at rest Anxiety Asthma Bulging disc Colon cancer screening Depression Diabetes Dry senile macular degeneration Fibromyalgia Fractures toe GERD (gastroesophageal reflux disease) History of COVID-19 Hyperlipidemia Hypertension Nuclear age-related cataract, both eyes Sleep difficulties Ulcer Surgical History Surgical History H/O dilation and curettage Hx of cholecystectomy Family History Family History Grandparent Heart disease Diabetes mellitus Hypertension Social History Social History Smoking status: Never smoker Alcohol intake: never Substance use: never Lack of Transportation: No Lack of Food: Never True Current Housing: I Have Housing Concerned About Future Housing: No Difficulty Paying Gas/Electric Bills: No Difficulty Paying for Meds: No Currently Unemployed: No Difficulty w/ Childcare or Family Care: No Gender identity (if verbalized by the patient): Female Comments At the time of my signature, I reviewed and agree with the nursing past medical, surgical, social, and family history. There is no relevant family history pertinent to the patient complaint. Exam Narrative: General: Well-developed, well nourished, in no apparent distress Head: Normocephalic, atraumatic Eyes: Pupils equally round and reactive to light bilaterally, EOM intact, sclera and conjunctive clear, no discharge, lids normal Ears: TMs intact and clear, ear canals clear, no drainage, grossly hearing normal. Nose: Nares patent, clear nasal discharge, no inflammation, no sinus tenderness. Mouth: Oral pharynx red without lesions or masses, good dentition, MMM. Postnasal drip Neck: Supple, trachea midline, no enlargement of anterior or posterior cervical nodes, no thyroid masses or goiter palpable. Cardio: Regular rate and rhythm, s1 and s2 normal, no murmur appreciated. Resp: Clear to auscultation bilaterally, no rhonchi, rales, wheezing or rubs Abdomen: Soft, pliable, bowel sounds present in all quadrants, right upper quandrant tender to palpation, no organomegly, no CVAT tenderness. Course Course Emergency Course: Portions of this record may have been created with voice recognition software. Level of Care: Express Care Visit Vital Signs Vital signs: Vital Signs Temperature 36.2 C L 09/16/24 16:11 Pulse Rate 70 09/16/24 16:11 Respiratory Rate 15 09/16/24 16:11 Blood Pressure 138/87 09/16/24 16:11 Pulse Oximetry 100 09/16/24 16:11 Oxygen Delivery Room Air 09/16/24 16:11 Temperature 36.2 C L 09/16/24 16:11 Pulse Rate 70 09/16/24 16:11 Respiratory Rate 15 09/16/24 16:11 Blood Pressure 138/87 09/16/24 16:11 Pulse Oximetry 100 09/16/24 16:11 Oxygen Delivery Room Air 09/16/24 16:11 Vital signs reviewed MDM - URI/Sore Throat MDM Narrative Medical decision making narrative: At the time of visit patient is resting comfortably on the exam table. Patient appears to be nontoxic. Labs: COVID, influenza, and strep test were all performed and negative in the clinic today. Plan: Recommend transfer to the ER for further evaluation as patient is unable to follow-up with her primary care doctor in regards to right upper quadrant abdominal pain. Patient agrees and would like to be transfer to [facility]. Report called to Dr. Dumont and he accepts patient for transfer. Patient to be transferred via private car Differential Diagnosis Differential diagnosis: Likely upper respiratory infection, otitis media, sinusitis, viral infection, bronchitis, influenza, pharyngitis and other Discharge Plan Discharge Clinical Impression: Upper respiratory infection with cough and congestion, Right upper quadrant abdominal pain Patient Disposition: Acute Care Hospital Condition: Stable Prescriptions: No Action cholecalciferol (vitamin D3) 125 mcg (5,000 unit) capsule 125 mcg PO DAILY ascorbate calcium (vitamin C) 500 mg tablet 500 mg PO DAILY biotin 5,000 mcg tablet,disintegrating 10,000 mcg PO DAILY ferrous sulfate [Feosol] 325 mg (65 mg iron) tablet 325 mg PO DAILY multivitamin [Daily Multi-Vitamin] Tablet 1 tablet PO DAILY albuterol sulfate [Proventil HFA] 90 mcg/actuation HFA aerosol inhaler 1 inh inhalation Q4H [employer] Probiotics 5 billion cell tablet,chewable 5,000 mmu cells PO DAILY PreserVision AREDS [id number] [id number] capsule 1 cap PO BID Follow-up/Referrals: PHYSICIAN,VOLTAGE INSPECTOR [Primary Care Provider] - Time of Disposition: 16:45 Quality NIHSS Nursing Documentation ED NIHSS nursing documentation: reviewed/agree
[2024-09-16 16:11] VITALS: BP 138/87; PULSE 70; RESP 15; TEMP 36.2; O2SAT 100
[2024-09-16 17:58] LABS: EDCOVIDSCREEN Negative (Negative); EDINFLUASCREEN Negative (Negative); EDINFLUBSCREEN Negative (Negative); EDSTREPNEGPOS1 Negative (Negative)
== END 2024-09-16 16:45 | disposition short-term general hospital (02) ==
PROVIDERS: Emergency Provider Nurse Practitioner Family
DX: J06.9 Acute upper respiratory infection, unspecified (principal); R05.9 Cough, unspecified; R10.11 Right upper quadrant pain; Z20.822 Contact with and (suspected) exposure to COVID-19; E11.9 Type 2 diabetes mellitus without complications; M79.7 Fibromyalgia; K21.9 Gastro-esophageal reflux disease without esophagitis; I10 Essential (primary) hypertension; E78.5 Hyperlipidemia, unspecified; J45.909 Unspecified asthma, uncomplicated; I20.9 Angina pectoris, unspecified; D64.9 Anemia, unspecified; Z86.16 Personal history of COVID-19
CPT/HCPCS: 87426; 87804; 87880; 99213; G0463

== ENCOUNTER 2024-09-16 17:18 | Emergency (ER) | payer OTHER, SELFPAY ==
--- NOTE | ~2024-09-16 | CT_ITS ---
Non-contrast CT scan of the Abdomen and Pelvis Clinical indication: Abdominal pain Technique: 2.5 mm axial scans were obtained through the abdomen and pelvis without intravenous or or al contrast. Dose reduction technique was used on this scan by utilizing automated exposure control a nd iterative reconstruction technique. The dose-length product (DLP) was 1035.20 mGy-cm. Findings: Images through the lung bases reveal no abnormalities. Punctate nonobstructing right renal stone. No left renal stone. No hydronephrosis or ureteral stone e ither side. The liver, spleen, pancreas, and adrenals appear normal. Cholecystectomy clips are present. There is no aortic aneurysm. There is no evidence of bowel obstruction. Images through the pelvis were performed. There is no evidence of ascites or lymphadenopathy. Urinary bladder unremarkable. No pelvic mass seen. Impression: Punctate nonobstructing right renal stone, otherwise unremarkable exam. Reviewed, dictated and finalized at [facility]. NHOUSE SUPERINTENDENT Impression: Punctate nonobstructing right renal stone, otherwise unremarkable exam.
--- NOTE | ~2024-09-16 | XR_ITS ---
Clinical Indication: Cough PA and lateral views of the chest: Comparison: 01/05/2018 Findings: The lungs are clear, without evidence of focal consolidation or pleural effusion. Cardiome diastinal silhouette is within normal limits. Bones and soft tissues are unremarkable. Impression: Normal chest. Reviewed, dictated and finalized at [facility]. TENDER Impression: Normal chest.
[2024-09-16 17:19] VITALS: BP 153/85; PULSE 65; RESP 18; TEMP 36.1; O2SAT 99
[2024-09-16 20:15] LABS: Basophils Percent Auto 0.2 % (0.2-1.2); Eosinophils Absolute Auto 0.6 K/mm3 (0-0.3); Eosinophils Percent Auto 7.1 % (0-4.4); Hematocrit 46.3 % (37.0-47.0); Hemoglobin 14.6 g/dL (12.0-15.0); Immature Granulocyte Absolute 0.03 K/mm3 (0.00-0.031); Immature Granulocyte Percent A 0.4 % (0-0.5); Lymphocytes Absolute Auto 2.89 K/mm3 (0.9-3.2); Lymphocytes Percent Auto 34.9 % (18.3-44.2); Mean Corpuscular HGB Conc 31.5 g/dl (32-36); Mean Corpuscular Hemoglobin 25.6 pg (26-34); Mean Corpuscular Volume 81.1 fl (80-100); Mean Platelet Volume 9.6 fl (7.4-10.4); Monocytes Absolute Auto 0.7 K/mm3 (0.1-0.6); Neutrophils Absolute Auto 4.1 K/mm3 (1.3-6.7); Neutrophils Percent Auto 49.4 % (45.5-73.1); Platelet Count Result 288 k/mm3 (150-375); Red Blood Count 5.71 M/mm3 (4.2-5.4); Red Cell Distribution Width 13.9 % (11.5-14.5); White Blood Count 8.3 K/mm3 (4.5-10.0)
[2024-09-16 20:17] LABS: Add Urine Microscopic? NO; Appearance Urine Clear (Clear); Bilirubin Urine Negative (Negative); Blood Urine Negative (Negative); Color Urine Yellow (Yellow); Glucose Urine UA Negative (Negative); Ketones Urine Negative (Negative); Leukocyte Esterase Ur Negative LEU/UL (Negative); Nitrate Urine Negative (Negative); Protein Urine Negative (Negative); Specific Grav Ur 1.011 (1.001-1.035); Urobilinogen Urine 0.2 mg/dL (<2.0)
[2024-09-16 20:24] LABS: BEDSIDEPREGUCG Negative (Negative)
[2024-09-16 20:31] LABS: Alanine Aminotransferase 44 U/L (6-35); Albumin Level 4.8 g/dL (3.5-5.1); Alkaline Phosphatase 82 U/L (38-126); Anion Gap 7 mmol/L (4-12); Aspartate Amino Transferase 36 U/L (14-36); Bilirubin,Total 0.8 mg/dL (0.2-1.3); Blood Urea Nitrogen 14 mg/dL (7-17); Calcium 10.1 mg/dL (8.4-10.2); Carbon Dioxide 27 mmol/L (22-30); Chloride 103 mmol/L (98-107); Estimated CRCL calculation 75 ml/min; Estimated Glomerular Filt Rate > 60; Glucose 81 mg/dL (65-110); Lipase 80 U/L (23-300); Potassium 4.1 mmol/L (3.4-5.0); Sodium 137 mmol/L (137-145)
[2024-09-16 23:33] VITALS: BP 146/96; PULSE 78; RESP 16; TEMP 36.4; O2SAT 99
--- NOTE | 2024-09-17 01:24 | ED_ITS ---
HPI - Abdominal Pain General Chief Complaint: Abdominal Pain <Mira Mccoy PA-C - Last Filed: 09/17/24 16:39> Stated Complaint: RUQ pain <Mira Mccoy PA-C - Last Filed: 09/17/24 16:39> Time Seen by Provider: 09/17/24 00:08 <Mira Mccoy PA-C - Last Filed: 09/17/24 16:39> Source: patient <Mira Mccoy PA-C - Last Filed: 09/17/24 16:39> Mode of arrival: ambulatory <MASOUD Heredia Last Filed: 09/17/24 16:39> Limitations: no limitations <Mira Mccoy PA-C - Last Filed: 09/17/24 16:39> History of Present Illness HPI narrative: Patient is a 54-year-old female who presents the ED with report of right upper abdominal pain. Patient reports having fairly constant pain in her right upper abdomen over the last few weeks. Pain is worse with certain movements, bending over. Feels like a ball is rolling in her abdomen. Has been taking Tylenol without improvement. For the last couple of days, she has had cough and congestion. She reports worsening pain with cough. She went to an urgent care today for the URI symptoms and was referred to the ED for further evaluation given abdominal pain. Tested negative for COVID/flu/influenza. Denies shortness of breath. Denies significant pleuritic pain. Denies chest pain. Denies fevers. Denies pain or swelling in legs. Denies hx of blood clots. < Mira Mccoy PA-C - Last Filed: 09/17/24 16:39> Related Data Home Medications: Home Medications ?Medication ?Instructions ?Recorded ?Confirmed ?Last Taken ?Type Lactobacillus rhamnosus GG 5 5,000 mmu cells PO DAILY 08/18/20 12/07/22 10/09/21 History billion cell chewable tablet (Culturelle Kids Probiotics) albuterol sulfate 90 mcg/actuation 1 inh inhalation Q4H 08/18/20 12/07/22 10/09/21 History aerosol inhaler (Proventil HFA) ascorbate calcium (vitamin C) 500 500 mg PO DAILY 08/18/20 12/07/22 10/09/21 History mg tablet biotin 5,000 mcg disintegrating 10,000 mcg PO DAILY 08/18/20 12/07/22 10/09/21 History tablet cholecalciferol (vitamin D3) 125 125 mcg PO DAILY 08/18/20 12/07/22 10/09/21 History mcg (5,000 unit) capsule ferrous sulfate 325 mg (65 mg 325 mg PO DAILY 08/18/20 12/07/22 10/09/21 History iron) tablet (Feosol) multivitamin (Daily Multi-Vitamin 1 tablet PO DAILY 08/18/20 12/07/22 10/09/21 History tablet) vitamins A,C,M-iigu-vwkpdv 4,296 1 cap PO BID 08/20/21 12/07/22 10/09/21 History mcg-226 mg-90 mg capsule (PreserVision AREDS) <MASOUD Heredia Last Filed: 09/17/24 16:39> Allergies/Adverse Reactions: Allergies Allergy/AdvReac Type Severity Reaction Status Date / Time dexlansoprazole Allergy Severe Hives / Verified 09/16/24 16:21 Red Face pregabalin Allergy Severe Anaphylactic Verified 09/16/24 16:21 Shock wheat Allergy Severe GI ISSUES Verified 09/16/24 16:21 lactose Allergy Intermediate GI ISSUES Verified 09/16/24 16:21 topiramate Allergy Intermediate Rash Verified 09/16/24 16:21 cimetidine Allergy Mild HIVES Verified 09/16/24 16:21 Penicillins Allergy Mild HIVES, Verified 09/16/24 16:21 ITCHING ranitidine Allergy Mild HIVES Verified 09/16/24 16:21 tramadol Allergy Mild SWELLING Verified 09/16/24 16:21 LOWER EXTREMITIES. adhesive tape AdvReac Severe PAPER Verified 09/16/24 16:21 TAPE=SKIN IRRITATION TO SITE trimethobenzamide AdvReac Unknown Abdominal Verified 11/02/23 15:07 Pain <MASOUD Heredia Last Filed: 09/17/24 16:39> Review of Systems 2 Review of Systems: All systems reviewed & are unremarkable except as noted in HPI. <Mira Mccoy PA-C - Last Filed: 09/17/24 16:39> All systems reviewed & are unremarkable except as noted in HPI and below < Mira Mccoy PA-C - Last Filed: 09/17/24 16:39> PMFSH Past Medical History Medical History: Medical History Abnormal uterine bleeding Anemia Angina at rest Anxiety Asthma Bulging disc Colon cancer screening Depression Diabetes Dry senile macular degeneration Fibromyalgia Fractures toe GERD (gastroesophageal reflux disease) History of COVID-19 Hyperlipidemia Hypertension Nuclear age-related cataract, both eyes Sleep difficulties Ulcer <Mira Mccoy PA-C - Last Filed: 09/17/24 16:39> Surgical History Surgical History: Surgical History H/O dilation and curettage Hx of cholecystectomy <Mira Mccoy PA-C - Last Filed: 09/17/24 16:39> Family History Family History: Family History Grandparent Heart disease Diabetes mellitus Hypertension <Mira Mccoy PA-C - Last Filed: 09/17/24 16:39> Social History Social History: Social History Smoking status: Never smoker Alcohol intake: never Substance use: never Lack of Transportation: No Lack of Food: Never True Current Housing: I Have Housing Concerned About Future Housing: No Difficulty Paying Gas/Electric Bills: No Difficulty Paying for Meds: No Currently Unemployed: No Difficulty w/ Childcare or Family Care: No Gender identity (if verbalized by the patient): Female <Mira Mccoy PA-C - Last Filed: 09/17/24 16:39> Exam 2 Narrative: GENERAL: Well appearing, well-nourished, non-toxic, in no acute distress. HEAD: Normocephalic, atraumatic. RESPIRATORY: Airway patent, respirations nonlabored. Clear to auscultation bilaterally, no rales, rhonchi, wheezing. No significant focal lung sounds. CARDIOVASCULAR: Regular rate and rhythm without murmurs, rubs, or gallops. ABDOMINAL: Soft, tenderness to palpation in right mid to lower abdomen, nondistended. Normoactive BS. MUSCULOSKELETAL: Moves all extremities. No gross deformities. SKIN: Warm, dry, normal color. NEURO: A&O X3. Speech clear. PSYCHIATRIC: Appropriate mood and affect. Normal interaction. <Mira Mccoy PA-C - Last Filed: 09/17/24 16:39> Course COMMERCIAL LITIGATION PARALEGAL/PA Physician Supervision PA discussed patient with me. I am aware that she has been having right-sided upper abdominal pain which has been exacerbated with a cough recently that has been presumed to be due to a general upper respiratory if infection although she tested negative on the viral panel at Urgent Care today. It is felt this is likely musculoskeletal in nature but patient is pending a CT scan. Patient's labs were reportedly okay and she had even declined wanting anything for pain. No LFT abnormalities by report and she has a history of a cholecystectomy. stat Rad report shows a nonobstructing 2 mm right upper pole in renal stones without obstructive uropathy or hydronephrosis. we discussed that this is unlikely cause pain due to the location and size. Patient also has evidence of diverticulosis without acute diverticulitis and we discussed what this means. The findings of the CT scan showed no small bowel obstruction, no free intraperitoneal air and no acute appendicitis. Cholecystectomy was appreciated on CT imaging. Patient stable for discharge at this time. Mira had already printed discharge instructions prior to signing patient out Given the scheduled down time the hospital EMR. given the EMR system remains down upon the time of patient's discharge, a work excuse note is provided on alternative paperwork documentation. Patient notes that she does not have a PCP given her previous 1 is . I did confirm that Mira had provided a referral for 1 and this was highlighted patient's discharge instructions. < Emily Mendiola MD - Last Filed: 09/17/24 18:14> Vital Signs Vital signs: Vital Signs Temperature 97.0 F L 09/16/24 17:19 Pulse Rate 65 09/16/24 17:19 Respiratory Rate 18 09/16/24 17:19 Blood Pressure 153/85 H 09/16/24 17:19 Pulse Oximetry 99 09/16/24 17:19 Oxygen Delivery Room Air 09/16/24 17:19 Temperature 97.5 F L 09/16/24 23:33 Pulse Rate 71 09/17/24 03:00 Respiratory Rate 15 09/17/24 03:00 Blood Pressure 140/92 H 09/17/24 03:00 Pulse Oximetry 99 09/17/24 03:00 Oxygen Delivery Room Air 09/16/24 17:19 <Mira Mccoy PA-C - Last Filed: 09/17/24 16:39> Vital Signs Temperature 97.0 F L 09/16/24 17:19 Pulse Rate 65 09/16/24 17:19 Respiratory Rate 18 09/16/24 17:19 Blood Pressure 153/85 H 09/16/24 17:19 Pulse Oximetry 99 09/16/24 17:19 Oxygen Delivery Room Air 09/16/24 17:19 Temperature 97.5 F L 09/16/24 23:33 Pulse Rate 71 09/17/24 03:00 Respiratory Rate 15 09/17/24 03:00 Blood Pressure 140/92 H 09/17/24 03:00 Pulse Oximetry 99 09/17/24 03:00 Oxygen Delivery Room Air 09/16/24 17:19 <Emily Mendiola MD - Last Filed: 09/17/24 18:14> MDM - Abdominal Pain MDM Narrative Medical decision making narrative: Patient presented to ED with right-sided abdominal pain for the last few weeks, progressively worsening, also reporting URI symptoms over the last several days. Pain is worse with certain movements, coughing. Vital signs are stable upon arrival. Patient is in no acute distress. Declined pain medication at this time. Laboratory studies are fairly unremarkable. No leukocytosis or anemia. Stable electrolytes. Normal LFTs and lipase. UA is clear. D-dimer WNL. CT scan of abd/pelvis obtained and pending Suspect pleurisy/costochondritis picture vs musculoskeletal etiology. Patient has had prior cholecystectomy. No relation of pain to food/eating. Care signed out to Dr. eMndiola at shift change pending stat rad CT results. < Mira Mccoy PA-C - Last Filed: 09/17/24 16:39> Medical Records Attestation: I reviewed the patient's medical records. <Mira Mccoy PA-C - Last Filed: 09/17/24 16:39> Lab Data Attestation: I reviewed the patient's lab results. <Mira Mccoy PA-C - Last Filed: 09/17/24 16:39> Result diagrams: 09/16/24 20:06 09/16/24 20:06 <Mira Mccoy PA-C - Last Filed: 09/17/24 16:39> Labs: Lab Results 09/16/24 09/16/24 09/17/24 Range/Units 20:06 20:18 01:54 WBC 8.3 (4.5-10.0) K/mm3 RBC 5.71 H (4.2-5.4) M/mm3 Hgb 14.6 (12.0-15.0) g/dL Hct 46.3 (37.0-47.0) % MCV 81.1 (80-100) fl MCH 25.6 L (26-34) pg MCHC 31.5 L (32-36) g/dl RDW 13.9 (11.5-14.5) % Plt Count 288 (150-375) k/mm3 MPV 9.6 (7.4-10.4) fl Immature Gran % (Auto) 0.4 (0-0.5) % Neut % (Auto) 49.4 (45.5-73.1) % Lymph % (Auto) 34.9 (18.3-44.2) % [place] % (Auto) 8.0 (2.6-8.5) % Eos % (Auto) 7.1 H (0-4.4) % Baso % (Auto) 0.2 (0.2-1.2) % Lymph # (Auto) 2.89 (0.9-3.2) K/mm3 [place] # (Auto) 0.7 H (0.1-0.6) K/mm3 Eos # (Auto) 0.6 H (0-0.3) K/mm3 Baso # (Auto) 0.0 (0.0-0.1) K/mm3 Abs Immat Gran (auto) 0.03 (0.00-0.031) K/mm3 Absolute Neuts (auto) 4.1 (1.3-6.7) K/mm3 Absolute Nucleated RBC 0.000 (0.0-0.012) K/mm3 Nucleated RBC % 0.0 (0.0-0.2) % D-Dimer < 0.27 (<0.48) ug/mL Sodium 137 (137-145) mmol/L Potassium 4.1 (3.4-5.0) mmol/L Chloride 103 (98-107) mmol/L Carbon Dioxide 27 (22-30) mmol/L Anion Gap 7 (4-12) mmol/L BUN 14 (7-17) mg/dL Creatinine 0.80 (0.7-1.0) mg/dL Estim Creat Clear Calc 75 ml/min Estimated GFR > 60 (59 - ) Glucose 81 (65-110) mg/dL Calcium 10.1 (8.4-10.2) mg/dL Total Bilirubin 0.8 (0.2-1.3) mg/dL AST 36 (14-36) U/L ALT 44 H (6-35) U/L Alkaline Phosphatase 82 (38-126) U/L Total Protein 8.0 (6.3-8.2) g/dL Albumin 4.8 (3.5-5.1) g/dL Lipase 80 (23-300) U/L Urine Color Yellow (Yellow) Urine Appearance Clear (Clear) Urine pH 5.0 (5.0-9.0) Ur Specific [place] 1.011 (1.001-1.035) Urine Protein Negative (Negative) mg/dL Urine Glucose (UA) Negative (Negative) mg/dL Urine Ketones Negative (Negative) mg/dL Ur Blood (Man) Negative (Negative) Urine Nitrate Negative (Negative) Urine Bilirubin Negative (Negative) Urine Urobilinogen 0.2 (<2.0) mg/dL Leukocyte Esterase Rfl Negative (Negative) SIVAKUMAR/UL POC Urine HCG, Qual Negative (Negative) <Mira Mccoy PA-C - Last Filed: 09/17/24 16:39> Lab Results 09/16/24 09/16/24 09/17/24 Range/Units 20:06 20:18 01:54 WBC 8.3 (4.5-10.0) K/mm3 RBC 5.71 H (4.2-5.4) M/mm3 Hgb 14.6 (12.0-15.0) g/dL Hct 46.3 (37.0-47.0) % MCV 81.1 (80-100) fl MCH 25.6 L (26-34) pg MCHC 31.5 L (32-36) g/dl RDW 13.9 (11.5-14.5) % Plt Count 288 (150-375) k/mm3 MPV 9.6 (7.4-10.4) fl Immature Gran % (Auto) 0.4 (0-0.5) % Neut % (Auto) 49.4 (45.5-73.1) % Lymph % (Auto) 34.9 (18.3-44.2) % [place] % (Auto) 8.0 (2.6-8.5) % Eos % (Auto) 7.1 H (0-4.4) % Baso % (Auto) 0.2 (0.2-1.2) % Lymph # (Auto) 2.89 (0.9-3.2) K/mm3 [place] # (Auto) 0.7 H (0.1-0.6) K/mm3 Eos # (Auto) 0.6 H (0-0.3) K/mm3 Baso # (Auto) 0.0 (0.0-0.1) K/mm3 Abs Immat Gran (auto) 0.03 (0.00-0.031) K/mm3 Absolute Neuts (auto) 4.1 (1.3-6.7) K/mm3 Absolute Nucleated RBC 0.000 (0.0-0.012) K/mm3 Nucleated RBC % 0.0 (0.0-0.2) % D-Dimer < 0.27 (<0.48) ug/mL Sodium 137 (137-145) mmol/L Potassium 4.1 (3.4-5.0) mmol/L Chloride 103 (98-107) mmol/L Carbon Dioxide 27 (22-30) mmol/L Anion Gap 7 (4-12) mmol/L BUN 14 (7-17) mg/dL Creatinine 0.80 (0.7-1.0) mg/dL Estim Creat Clear Calc 75 ml/min Estimated GFR > 60 (59 - ) Glucose 81 (65-110) mg/dL Calcium 10.1 (8.4-10.2) mg/dL Total Bilirubin 0.8 (0.2-1.3) mg/dL AST 36 (14-36) U/L ALT 44 H (6-35) U/L Alkaline Phosphatase 82 (38-126) U/L Total Protein 8.0 (6.3-8.2) g/dL Albumin 4.8 (3.5-5.1) g/dL Lipase 80 (23-300) U/L Urine Color Yellow (Yellow) Urine Appearance Clear (Clear) Urine pH 5.0 (5.0-9.0) Ur Specific [place] 1.011 (1.001-1.035) Urine Protein Negative (Negative) mg/dL Urine Glucose (UA) Negative (Negative) mg/dL Urine Ketones Negative (Negative) mg/dL Ur Blood (Man) Negative (Negative) Urine Nitrate Negative (Negative) Urine Bilirubin Negative (Negative) Urine Urobilinogen 0.2 (<2.0) mg/dL Leukocyte Esterase Rfl Negative (Negative) SIVAKUMAR/UL POC Urine HCG, Qual Negative (Negative) <Emily Mendiola MD - Last Filed: 09/17/24 18:14> Imaging Data Attestation: I personally reviewed and interpreted this imaging study as follows: < Mira Mccoy PA-C - Last Filed: 09/17/24 16:39> Radiologist's impression: ITS Impressions Abdomen/Pelvis CT 09/17/24 07:14 Impression: Punctate nonobstructing right renal stone, otherwise unremarkable exam. Chest X-Ray 09/17/24 07:16 Impression: Normal chest. <Mira Mccoy PA-C - Last Filed: 09/17/24 16:39> ITS Impressions Abdomen/Pelvis CT 09/17/24 07:14 Impression: Punctate nonobstructing right renal stone, otherwise unremarkable exam. Chest X-Ray 09/17/24 07:16 Impression: Normal chest. <Emily Mendiola MD - Last Filed: 09/17/24 18:14> Discharge Plan Discharge Clinical Impression: Right sided abdominal pain URI (upper respiratory infection) Qualifiers: URI type: unspecified URI Qualified Code(s): J06.9 - Acute upper respiratory infection, unspecified <MASOUD Heredia Last Filed: 09/17/24 16:39> Patient Disposition: Home, Self-Care <MASOUD Heredia Last Filed: 09/17/24 16:39> Condition: Stable <MASOUD Heredia Last Filed: 09/17/24 16:39> Instructions: Antibiotic Form, Upper Respiratory Infection (ED), Viral Syndrome (ED), Abdominal Pain (ED) <MASOUD Heredia Last Filed: 09/17/24 16:39> Additional Instructions: Continue Tylenol and ibuprofen as needed for pain. Stay well-hydrated at home. Recommend electrolyte rich fluids, Gatorade, Pedialyte, body armor. Utilize Tessalon Perles as needed for cough. Recommend hnce-iti-flblhgr cough and cold medicines for symptom relief, Delsym, Mucinex, DayQuil, NyQuil, Sudafed, Robitussin, TheraFlu. Follow up with primary care doctor for further evaluation. Return to the ED if you experience worsening or severe pain, chest pain, difficulty breathing, unable to keep down food or drink, or any other symptoms of concern. <MASOUD Heredia Last Filed: 09/17/24 16:39> Patient Language: Mozambican <MASOUD Heredia Last Filed: 09/17/24 16:39> Prescriptions: New benzonatate 200 mg capsule 200 mg PO TID PRN (Reason: cough) Qty: 20 0RF No Action cholecalciferol (vitamin D3) 125 mcg (5,000 unit) capsule 125 mcg PO DAILY ascorbate calcium (vitamin C) 500 mg tablet 500 mg PO DAILY biotin 5,000 mcg tablet,disintegrating 10,000 mcg PO DAILY ferrous sulfate [Feosol] 325 mg (65 mg iron) tablet 325 mg PO DAILY multivitamin [Daily Multi-Vitamin] Tablet 1 tablet PO DAILY albuterol sulfate [Proventil HFA] 90 mcg/actuation HFA aerosol inhaler 1 inh inhalation Q4H Culturelle Kids Probiotics 5 billion cell tablet,chewable 5,000 mmu cells PO DAILY PreserVision AREDS [id number] [id number] capsule 1 cap PO BID <Mira Mccoy PA-C - Last Filed: 09/17/24 16:39> Follow-up/Referrals: PHYSICIAN,RIPRAP WORKER [Primary Care Provider] - Link Ramey MD [Physician] - (PRIMARY CARE) <Mira Mccoy PA-C - Last Filed: 09/17/24 16:39>
[2024-09-17] MEDS: PSEUDOEPHEDRINE HCL 30 MG TABLET 60 MG PO (01:25)
[2024-09-17] MEDS: guaiFENesin 12 HR 600 MG TABCR 1200 MG PO (01:26)
[2024-09-17 02:18] LABS: D Dimer < 0.27 ug/mL (<0.48)
[2024-09-17 03:00] VITALS: BP 140/92; PULSE 71; RESP 15; O2SAT 99
== END 2024-09-17 05:10 | disposition home or self-care (01) ==
PROVIDERS: Emergency Provider Physician Assistant
DX: J06.9 Acute upper respiratory infection, unspecified (principal); R10.11 Right upper quadrant pain; J45.909 Unspecified asthma, uncomplicated; I10 Essential (primary) hypertension; E11.9 Type 2 diabetes mellitus without complications; E78.5 Hyperlipidemia, unspecified; H35.3190 Nonexudative age-related macular degeneration, unspecified eye, stage unspecified; H25.13 Age-related nuclear cataract, bilateral; M79.7 Fibromyalgia; K21.9 Gastro-esophageal reflux disease without esophagitis; Z86.16 Personal history of COVID-19; Z90.49 Acquired absence of other specified parts of digestive tract; N20.0 Calculus of kidney
CPT/HCPCS: 36415; 71046; 74176; 80053; 81003; 81025; 83690; 85025; 85380; 87426; 87804; 87880; 99284; A9270

== ENCOUNTER 2024-10-28 12:40 | Emergency (ER) | payer OTHER, SELFPAY ==
[2024-10-28 12:46] VITALS: BP 150/89; PULSE 106; RESP 18; TEMP 37.3; O2SAT 98
--- NOTE | 2024-10-28 12:50 | ED_ITS ---
HPI - URI/Sore Throat General Chief Complaint: Upper Respiratory Infection Stated Complaint: Bodyaches/Fever/Chills Time Seen by Provider: 10/28/24 12:50 Source: patient Mode of arrival: ambulatory Limitations: no limitations History of Present Illness HPI Narrative: 54-year-old female presents with complaint of cough, congestion, feeding fatigue, body aches, fever starting yesterday. Patient states symptoms started after somewhat coughed on her. Reports temp 101? F prior to arrival. Did not take any medications to treat symptoms. All systems reviewed and negative except as noted above. Related Data Home Medications ?Medication ?Instructions ?Recorded ?Confirmed ?Last Taken ?Type Lactobacillus rhamnosus GG 5 5,000 mmu cells PO DAILY 08/18/20 12/07/22 10/09/21 History billion cell chewable tablet ([employer] Probiotics) albuterol sulfate 90 mcg/actuation 1 inh inhalation Q4H 08/18/20 12/07/22 10/09/21 History aerosol inhaler (Proventil HFA) ascorbate calcium (vitamin C) 500 500 mg PO DAILY 08/18/20 12/07/22 10/09/21 History mg tablet biotin 5,000 mcg disintegrating 10,000 mcg PO DAILY 08/18/20 12/07/22 10/09/21 History tablet cholecalciferol (vitamin D3) 125 125 mcg PO DAILY 08/18/20 12/07/22 10/09/21 History mcg (5,000 unit) capsule ferrous sulfate 325 mg (65 mg 325 mg PO DAILY 08/18/20 12/07/22 10/09/21 History iron) tablet (Feosol) multivitamin (Daily Multi-Vitamin 1 tablet PO DAILY 08/18/20 12/07/22 10/09/21 History tablet) vitamins A,C,M-xttc-fxpinv 4,296 1 cap PO BID 08/20/21 12/07/22 10/09/21 History mcg-226 mg-90 mg capsule (PreserVision AREDS) Allergies Allergy/AdvReac Type Severity Reaction Status Date / Time dexlansoprazole Allergy Severe Hives / Verified 10/28/24 12:44 Red Face pregabalin Allergy Severe Anaphylactic Verified 10/28/24 12:44 Shock wheat Allergy Severe GI ISSUES Verified 10/28/24 12:44 lactose Allergy Intermediate GI ISSUES Verified 10/28/24 12:44 topiramate Allergy Intermediate Rash Verified 10/28/24 12:44 cimetidine Allergy Mild HIVES Verified 10/28/24 12:44 Penicillins Allergy Mild HIVES, Verified 10/28/24 12:44 ITCHING ranitidine Allergy Mild HIVES Verified 10/28/24 12:44 tramadol Allergy Mild SWELLING Verified 10/28/24 12:44 LOWER EXTREMITIES. adhesive tape AdvReac Severe PAPER Verified 10/28/24 12:44 TAPE=SKIN IRRITATION TO SITE trimethobenzamide AdvReac Unknown Abdominal Verified 10/28/24 12:44 Pain Review of Systems Review of Systems: CONSTITUTIONAL: Reports fever, chills, or sweats. EYES: Denies visual changes, redness, or discharge. ENT: Reports rhinorrhea, congestion, sore throat. Denies otalgia. CARDIOVASCULAR: Denies chest pain, palpitations, or edema. RESPIRATORY: Reports cough. Denies dyspnea. GASTROINTESTINAL: Denies abdominal pain, nausea, vomiting, or diarrhea. GENITOURINARY: Denies dysuria or hematuria. SKIN: Denies rash or itching. MUSCULOSKELETAL: Denies back pain, joint pain, or myalgia. NEUROLOGIC: Denies headache, numbness, or weakness. PSYCHIATRIC: Denies anxiety or depression. All other systems reviewed are negative, except as documented in HPI. [facility] Past Medical History Medical History Abnormal uterine bleeding Anemia Angina at rest Anxiety Asthma Bulging disc Colon cancer screening Depression Diabetes Dry senile macular degeneration Fibromyalgia Fractures toe GERD (gastroesophageal reflux disease) History of COVID-19 Hyperlipidemia Hypertension Nuclear age-related cataract, both eyes Sleep difficulties Ulcer Surgical History Surgical History H/O dilation and curettage Hx of cholecystectomy Family History Family History Grandparent Heart disease Diabetes mellitus Hypertension Social History Social History Smoking status: Never smoker Alcohol intake: never Substance use: never Lack of Transportation: No Lack of Food: Never True Current Housing: I Have Housing Concerned About Future Housing: No Difficulty Paying Gas/Electric Bills: No Difficulty Paying for Meds: No Currently Unemployed: No Difficulty w/ Childcare or Family Care: No Gender identity (if verbalized by the patient): Female Comments At time of signature, agree with nursing past medical, surgical, social and family history. There is no relevant family history pertinent to the presenting complaint. Exam Narrative: GENERAL: This is a well-nourished, well-developed patient, ill-appearing but no acute distress HEAD: normocephalic, atraumatic. EYES: PERRL. Sclera clear/white. Vision is grossly intact. EARS: External ears normal, auditory canals clear and without drainage, TMs normal without perforation. Hearing grossly intact. NOSE: External nose normal with congestion, clear nasal drainage THROAT: Mucous membranes moist, posterior pharynx clear. NECK: Neck supple, non-tender without lymphadenopathy, masses or thyromegaly. CARDIOVASCULAR: Regular rate and rhythm without murmurs, gallops, or rubs. RESPIRATORY: Clear to auscultation. Breath sounds equal bilaterally. No wheezes, rales, or rhonchi. SKIN: warm, Dry, intact with no suspicious lesions or rash, good texture and turgor. NEURO: awake, alert, and oriented to person, place and time. There were no obvious focal neurologic abnormalities. EXTREMITIES: No joint tenderness, effusion, or edema noted. Course Course Level of Care: Express Care Visit Vital Signs Vital signs: Vital Signs Temperature 37.3 C 10/28/24 12:46 Pulse Rate 106 H 10/28/24 12:46 Respiratory Rate 18 10/28/24 12:46 Blood Pressure 150/89 H 10/28/24 12:46 Pulse Oximetry 98 10/28/24 12:46 Oxygen Delivery Room Air 10/28/24 12:46 Temperature 37.3 C 10/28/24 12:46 Pulse Rate 106 H 10/28/24 12:46 Respiratory Rate 18 10/28/24 12:46 Blood Pressure 150/89 H 10/28/24 12:46 Pulse Oximetry 98 10/28/24 12:46 Oxygen Delivery Room Air 10/28/24 12:50 Reviewed MDM - URI/Sore Throat MDM Narrative Medical decision making narrative: Patient positive for influenza A. Discussed results with patient. Patient is well-appearing, nontoxic. Lungs clear to auscultation. Will prescribe Tamiflu. Patient is aware of diagnosis, understands and agrees to treatment plan. Anticipatory guidance given. Patient agrees to follow-up as directed and is aware of reasons to seek care at the emergency department. Portions of this record may have been created with voice recognition software Differential Diagnosis Differential diagnosis: Likely upper respiratory infection, sinusitis, viral infection, influenza and pharyngitis Lab Data Labs: Lab Results 10/28/24 Range/Units 13:04 POC Influenza A Ag Positive (Negative) POC Influenza B Ag Negative (Negative) POC SARS CoV-2 Ag Negative (Negative) Discharge Plan Discharge Clinical Impression: Influenza A Patient Disposition: Home, Self-Care Condition: Stable Instructions: Influenza (ED) Additional Instructions: You were positive for influenza a today. Influenza is a virus and symptoms may last 10-14 days. Taking [id number] medication to treat her symptoms such as DayQuil NyQuil cold and flu. Drink at least 64 oz of water a day. Place cool mist humidifier in bedroom where you sleep. Follow-up with your primary care physician if symptoms are not improving. Patient Language: Maltese Prescriptions: New oseltamivir [Tamiflu] 75 mg capsule 75 mg PO Q12H 5 Days Qty: 10 0RF No Action cholecalciferol (vitamin D3) 125 mcg (5,000 unit) capsule 125 mcg PO DAILY ascorbate calcium (vitamin C) 500 mg tablet 500 mg PO DAILY biotin 5,000 mcg tablet,disintegrating 10,000 mcg PO DAILY ferrous sulfate [Feosol] 325 mg (65 mg iron) tablet 325 mg PO DAILY multivitamin [Daily Multi-Vitamin] Tablet 1 tablet PO DAILY albuterol sulfate [Proventil HFA] 90 mcg/actuation HFA aerosol inhaler 1 inh inhalation Q4H [employer] Probiotics 5 billion cell tablet,chewable 5,000 mmu cells PO DAILY PreserVision AREDS [id number] [id number] capsule 1 cap PO BID Follow-up/Referrals: PHYSICIAN,CAREER SERVICES REPRESENTATIVE [Primary Care Provider] - Time of Disposition: 13:02
[2024-10-28 13:06] LABS: EDCOVIDSCREEN Negative (Negative); EDINFLUASCREEN Positive (Negative); EDINFLUBSCREEN Negative (Negative)
== END 2024-10-28 13:06 | disposition home or self-care (01) ==
PROVIDERS: Emergency Provider Nurse Practitioner Family
DX: J10.1 Influenza due to other identified influenza virus with other respiratory manifestations (principal); Z20.822 Contact with and (suspected) exposure to COVID-19; I20.9 Angina pectoris, unspecified; I10 Essential (primary) hypertension; E11.9 Type 2 diabetes mellitus without complications; M79.7 Fibromyalgia; D64.9 Anemia, unspecified; K21.9 Gastro-esophageal reflux disease without esophagitis; E78.5 Hyperlipidemia, unspecified; Z86.16 Personal history of COVID-19
CPT/HCPCS: 87426; 87804; 99213; G0463

== ENCOUNTER 2024-11-06 14:58 | Outpatient (CLI) | payer OTHER, SELFPAY ==
--- NOTE | ~2024-11-06 | MM_ITS ---
EXAMINATION: MM screening nolan BI w kenneth HISTORY: Screening TECHNIQUE: Craniocaudal and mediolateral oblique 3-D tomosynthesis images were obtained and synthetic 2-D images were generated. CAD analysis was submitted and interpreted. COMPARISON: Comparison to multiple prior studies sequentially, with oldest reviewed study dated 07/09. BREAST PARENCHYMAL COMPOSITION: Not Dense: The breasts are almost entirely fatty. FINDINGS: There is no evidence of suspicious mass, calcification, or architectural distortion to sugg est malignancy in either breast. There has been no suspicious interval change. IMPRESSION: 1. No mammographic evidence of malignancy. 2. Recommend routine screening mammography in one year. BI-RADS Category 1: Negative Reviewed, dictated and finalized at location A. SOUP
--- OUTSIDE RECORDS SUMMARY | 2024-11-06 15:51 | XMS_ITS | Clinical Summary ---
Author Organization [facility] [employer] Address [address] [place] [address] Care Team Providers Care Border Inspector Name Role Phone Anthony Lou RUFINA Primary Care Provider + Source Comments [facility] [employer],non-owned Affiliates and Associated Physician Practices is amultiple site organization consisting of ambulatory clinics and hospital sitesin [place], [place], [place] and [place]. This disclosure is being madepursuant to the Care Everywhere program and may not contain all information available regarding this patient. Last updated 18.[facility] [employer] Allergies Active Allergy Reactions Criticality Noted Date Comments Pregabalin Urticaria Medium 01/27/2023 Penicillins Urticaria Medium 08/06/2019 Tagamet Urticaria Medium 01/27/2023 Topiramate Urticaria Medium 08/06/2019 Tramadol Urticaria Medium 08/06/2019 Ranitidine Urticaria Medium 01/27/2023 Medications * Be aware that medications may not be up to date on this document. Alwaysverify current medications with the patient. Medication Sig Dispensed Refills Start Date End Date Status biotin 5000 MCG sublingual tab Dissolve 1 (one) tablet under the tongue as directed Active albuterol HFA (ProAir HFA) 108 (90 Base) MCG/ACT inhaler Inhale 2 (two) puffs by mouth every 6 hours as needed Active Aspirin (ASPIR-LOW PO) Take 1 tablet by mouth once daily Active VITAMIN D PO Take 1 tablet by mouth as directed Active Ascorbic Acid (VITAMIN C PO) Take 1 tablet by mouth as directed Active Multiple Vitamin (MULTI-VITAMIN DAILY PO) Take 1 tablet by mouth once daily Active ELDERBERRY PO Take 1 tablet by mouth as directed Active Active Problems Problem Noted Date Diagnosed Date Multiple thyroid nodules 01/27/2023 Immunizations Name Administration Dates Next Due INFLUENZA VACCINE, TRIV. (FL UZONE; FLULAVAL; FLUARIX; AFLURIA TRIVALENT; 6MO+), 0.5 ML (IIV3) 10/25/2013 TDAP, HISTORIC VACCINE 05/27/2008 Social History Tobacco Use Types Packs/Day Years Used Date Smoking Tobacco: Never Smokeless Tobacco: Never Tobacco Cessation:Counseling Given: Not Answered Alcohol Use Standard Drinks/Week Comments Yes 0 (1 standard drink = 0.6 oz pur e alcohol) 2 drinks a year Sex and Gender Information Value Date Recorded Sex Assigned at Not on file Gender Identity Not on file Sexual Orientation Not on file Last Filed Vital Signs Vital Sign Reading Time Taken Comments Blood Pressure 143/87 01/27/2023 8:21 AM CDT Pulse 82 01/27/2023 8:21 AM CDT Temperature - - Respiratory Rate - - Oxygen Saturation - - Inhaled Oxygen Concentration - - Weight 82.3 kg (181 lb 6.4 oz) 01/27/2023 8:21 A M CDT Height 165.1 cm (5' 5 ) 01/27/2023 8:21 AM CDT Body Mass Index 30.19 01/27/2023 8:21 AM CDT Plan of Treatment Health Maintenance Due Date Last Done Comments COLOGUARD (AGES 45-75) - COL ON CA SCREENING 1972 COLON MONITORING 1972 COLONOSCOPY - COLON CA SCREENING 1972 CT COLONOGRAPHY - COLON CA SCREENING 1972 Colorectal Cancer Screening 1972 FIT - COLON CA SCREENING 1972 FLEX SIG - COLON CA SCREENING 1972 LIPID TESTING 1972 MAMMOGRAM 1972 PAP SMEAR 1972 HIV SCREENING 1987 HEPATITIS C SCREENING 08/29/1990 HEPATITIS B VACCINE (1 of 3 - 19+ 3-dose series) 1991 DTAP/TDAP/TD VACCINES (2 - T d or Tdap) 05/27/2018 05/27/2008 PNEUMOCOCCAL VACCINE 50+ (1 of 1 - PCV) 2022 ZOSTER VACCINE (1 of 2) 2022 SCREENING FOR DIABETES 01/27/2023 COVID-19 VACCINE (2 - 2023-2 5 season) 2024 04/28/2021 INFLUENZA VACCINE (#1) 2024 10/25/2013 DEPRESSION SCREENING 10/09/2024 HIB VACCINE Aged Out No longer eligi ble based on patient's age to complete this topic HPV VACCINE Aged Out No longer eligi ble based on patient's age to complete this topic MENINGOCOCCAL (Group B) VACCINE Aged Out No longer eligible based on patient's age to complete this topic MENINGOCOCCAL VACCINE Aged Out No zara abimbola eligible based on patient's age to complete this topic PNEUMOCOCCAL VACCINE Aged Out No long er eligible based on patient's age to complete this topic Care Teams Border Inspector Relationship Specialty Start Date End Date Lou Cruz APRN-MICHAEL [address] [address] PCP - General 12/15/22
--- OUTSIDE RECORDS SUMMARY | 2024-11-06 15:51 | XMS_ITS | Referral Summary ---
Author Organization [facility] [email or web address] Address [address] [place] [address] Care Team Providers Care Firewall Engineer Name Role Phone Anthony Lou ARISTIDES-HOSPICE EXECUTIVE DIRECTOR Primary Care Provider + Source Comments [facility] [email or web address],non-owned Affiliates and Associated Physician Practices is amultiple site organization consisting of ambulatory clinics and hospital sitesin [place], [place], [place] and [place]. This disclosure is being madepursuant to the Care Everywhere program and may not contain all information available regarding this patient. Last updated 18.[facility] [email or web address] Allergies Active Allergy Reactions Criticality Noted Date [...] 01/27/2023 8:21 AM CDT Plan of Treatment Not on file Care Teams Firewall Engineer Relationship Specialty Start Date End Date Lou Cruz APRN-MICHAEL [address] [address] PCP - General 12/15/22
--- OUTSIDE RECORDS SUMMARY | 2024-11-06 15:51 | XMS_ITS | Clinical Summary ---
Author Organization [facility] Address [address] [place] [address] Care Team Providers Care Floor Technician Name Role Phone Fermín Reyes MD Unavailable [phone] No, Physician Primary Care Provider [phone] Allergies Active Allergy Reactions Criticality Noted Date Comments Cimetidine Urticaria Medium 01/27/2023 Penicillins Unknown,Urticaria Medium 08/06/2019 Shellfish Containing Products Other (See comments) Low 01/31/2024 Other Tagamet In 0.9 % Sod. Chloride Unknown 08/06 Topiramate Unknown,Urticaria Medium 08/06/2019 Tramadol Unknown,Urticaria Medium 08/06/2019 Medications albuterol HFA (PROVENTIL HFA,VENTOLIN HFA,PROAIR HFA) 90 mcg/actuation inhaler Inhale 2 puffs every 6 (six) hours as needed Active biotin 5,000 mcg tablet, sublingual Place 5,000 mcg under the tongue as directed Active cholecalciferol (VITAMIN D-3) 2000 unit tablet Take 2.5 tablets (5,000 Units total) by mouth daily Active ascorbic acid, vitamin C, (VITAMIN C) 500 mg CR tablet Take 1 tablet (500 mg total) by mouth as directed Active multivitamin tablet Take 1 tablet by mouth daily Active ferrous sulfate 325 mg (65 mg of elemental iron) tabletIndicatio ns:Iron Deficiency Anemia Take 1 tablet (65 mg of elemental iron total) by mouth 3 (three) times a day with meals Active vit C,P-Oh-ezngf-lorne tein-zeaxan 250-90-40-1 mg capsule Take by mouth Active Active Problems Problem Noted Date Diagnosed Date 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 Multiple thyroid nodules 01/27/2023 Microcytosis 08/21/2019 Anemia 08/21/2018 Dysphonia 08/20/2009 Hoarse voice quality 08/20/2009 Encounters Date Type Department Care Team Description 09/10/2024 11:20 AM RECEPTIONIST Ancillary Procedure [facility] Endocrinology Metabolism and Lipid [address] [place] [address] Floor 1, [address] [place] [address] Multiple thyroid nodules 09/10/2024 11:16 AM RECEPTIONIST - 09/10/2024 11:59 PM RECEPTIONIST Hospital Encounter [facility] [address] [place] [address] Multiple thyroid nodules Discharge Disposition: Discharge to home or self care 09/10/2024 11:00 AM RECEPTIONIST Procedure visit [facility] Endocrinology Metabolism and Lipid [address] [place] [address] Floor 1, [address] [place] [address] Pepe Madrigal MD Multiple thyroid nodules (Primary Dx); Retrosternal thyroid goiter; Hoarse voice quality from Last 3 Months Surgical History Surgery Date Site/Laterality Comments CHOLECYSTECTOMY 10/09/2015 - 10/08/2016 DILATION AND CURETTAGE OF UTERUS 10/09/2017 - 10/08/2018 COLONOSCOPY 2021 Medical History Medical History Date Comments Hyperlipidemia Anemia Allergic rhinitis Dental disease Sleep apnea Dizziness GERD (gastroesophageal reflux disease) Tinnitus Headache Diabetes mellitus (HCC) 2010 Asthma 1994 Hypertension Family History Medical History Relation Name Comments No Known Problems Brother No Known Problems Father No Known Problems Mother Relation Name Status Comments Brother Father Mother Social History Tobacco Use Types Packs/Day Years Used Date Smoking Tobacco: Never Smokeless Tobacco: Never Tobacco Cessation:Counseling Given: Not Answered AUDIT-C Answer Date Recorded Q1: How often do you have a drink containing alc ohol? Monthly or less 03/20/2024 Q2: How many drinks containi ng alcohol do you have on a typical day when you are drinking? 1 or 2 03/20/2024 Frequency of Binge Drinking Not on file 03/09 Comments Unknown Sex and Gender Information Value Date Recorded Sex Assigned at Not on file Legal Sex Female 10:50 AM RECEPTIONIST Gender Identity Not on file Sexual Orientation Not on file Obstetrics History Last Filed Vital Signs Vital Sign Reading Time Taken Comments Blood Pressure 140/87 09/10/2024 11:17 AM RECEPTIONIST Pulse 101 09/10/2024 11:17 AM RECEPTIONIST Temperature 36.3 ??C (97.4 ??F) 09/10/2024 11:[address] Respiratory Rate 21 09/10/2024 11:17 AM RECEPTIONIST Oxygen Saturation - - Inhaled Oxygen Concentration - - Weight 90.8 kg (200 lb 3.2 oz) 09/10/2024 11:17 AM RECEPTIONIST Height 165.1 cm (5' 5 ) 09/10/2024 11:17 AM RECEPTIONIST Body Mass Index 33.32 09/10/2024 11:17 AM RECEPTIONIST Plan of Treatment Health Maintenance Due Date Last Done Comments Breast Cancer Screening-Mammogram 1972 Cervical Cancer Screening 1972 Colon Cancer Screening-Colonoscopy 1972 Depression Screening 1972 Hepatitis C Screening 1972 Hepatitis B Screening 1990 Regular Well Visit/Exam 18-64 1990 DTaP/Tdap/Td Vaccine (2 - Td or Tdap) 05/27/2018 05/27/2008 Zoster Vaccine (1 of 2) 2022 Covid-19 Vaccine (2 - 2023-2 5 season) 2024 04/28/2021 Influenza Vaccine (#1) 2024 10/25/2013 Pneumococcal vaccine <65 Aged Out No longer eligible based on patient's age to complete this topic Procedures Procedure Name Priority Date/Time Associated Diagnosis Comments CYTOLOGY Routine 09/10/2024 11:27 AM RECEPTIONIST Multiple thyroid nodules POCUS FINE NEEDLE ASP BIOPSY Schedule Routine, Read Routine (OP Routine) 09/10/2024 11:15 AM RECEPTIONIST Multiple thyroid nodules from Last 3 Months Results * Cytology (09/10/2024 11:27 AM RECEPTIONIST) Fine needle aspirate (Thyroid Gland (Cytology)) 09/10/2024 11:27 AM RECEPTIONIST 09/10/2024 12:39 PM RECEPTIONIST Narrative PATHOLOGY [facility] - 09/13/2024 9:28 AM RECEPTIONIST EPIC results best viewed via link to PDF [facility] [place] [address] Note to Patients: This report may contain a detailed description of human tissue sent by a health care provider to the laboratory for pathologic evaluation. The content of this report is essential for diagnosis and may provide important critical findings. This information may be unfamiliar to patients to review without a medical professional present. It is advised that the patient review this report in the presence of a health care provider who can answer questions and explain the details. CYTOPATHOLOGY REPORT FINAL Patient Name: ?? MARCELLUS AGUILA Gender: ??F : ??1970 (Age: 54) Address: ??[address] [place] [address] ??[id number] [facility] #: ??[id number] Taken:09/10/2024 Received:09/10/2024 Reported: 09/13/2024 Patient Type: [facility] ?? Service: UNKNOWN Location: Physician(s): ??Pepe Madrigal M.D. FINAL DIAGNOSIS A. ??Thyroid, right lobe, ultrasound guided fine needle aspiration: ?- Benign B. ??Thyroid, left lobe, ultrasound guided fine needle aspiration: ?- Benign Comments A. ??Abundant watery colloid and few benign follicular cells present. These findings are consistent with benign follicular nodular disease/adenomatous nodule. B. The slides have abudant watery colloid and two populations of follicular cells. Some of the follicular cells have nuclear enlargement, consistent with oncocytic/Hurthle type changes. Other groups of follicular cells have small bland nuclei. Cystic macrophages are present. No nuclear inclusions or papillary architecture is seen. These are favored to represent a benign adenomatous nodule. /09/11/2024 10:54 By this signature, I attest that the above diagnosis is based upon my personal examination of the slides(and/or other material indicated in the diagnosis). Pamela Singh M.D. Report Electronically Reviewed and Signed Out By ??Pamela Singh M.D. 09/13/2024 09:28:37 Ingrid Alanis, CT([facility]) Gross Description A. ??Thyroid, right lobe, ultrasound guided fine needle aspiration: ??2 Pap stained smear(s) and 2 Diff-Quik stained smear(s). 1 ThinPrep prepared from needle rinse tube. Material for Thyroseq was collected, and testing will be performed, if indicated. B. ??Thyroid, left lobe, ultrasound guided fine needle aspiration: ??2 Pap stained smear(s) and 2 Diff-Quik stained smear(s). 1 ThinPrep prepared from needle rinse tube. Aspirated by clinician. (cy) Material for Thyroseq was collected, and testing will be performed, if indicated. Clinical Diagnosis and History The patient is a 54 year old woman with multinodular goiter. REPORT IMAGES AND SCANNED DOCUMENTS, IF INCLUDED, ONLY VIEWABLE IN PDF VERSION OF REPORT The performance characteristics of some immunohistochemical stains, in-situ hybridization and fluorescence in-situ hybridization tests and immunophenotyping by flow cytometry cited in this report (if any) were determined by the Surgical Pathology and Flow Cytometry Departments at [facility] as part of an ongoing business quality assurance analyst program and in compliance with federally mandated regulations drawn from the Clinical Laboratory Improvement Act of 1988 (CLIA '88). ??Some of these tests rely on the use of analyte specific reagents and are subject to specific labeling requirements by the US Food and Drug Administration. ??Such diagnostic tests may only be performed in a facility that is certified by the Department of Health and Human Services as a high complexity laboratory under CLIA '88. ??The FDA has determined that such clearance or approval is not necessary. ??This test is used for clinical purposes. ??It should not be regarded as investigational or for research. ??Nevertheless, federal rules concerning the medical use of analyte specific reagents require that the following disclaimer be attached to the report: ??This test was developed and its performance characteristics determined by the Surgical Pathology and Flow Cytometry Departments of [facility]. ??It has not been cleared or approved by the U. S. Food and Drug Administration. us Pepe Madrigal MD LAB CYTOLOGY ORDERABLES Final R esult Performing Organization Address City/[facility]/ZIP Co de Phone Number PATHOLOGY [facility] 3rd Floor [place], [place] [phone] * POCUS FINE NEEDLE ASP BIOPSY (09/10/2024 11:15 AM RECEPTIONIST) Narrative [facility] - 09/10/2024 11:15 AM RECEPTIONIST This procedure was performed and interpreted by the provider. Please refer to the provider's procedure/OR operative note for results. Pepe Madrigal MD POCUS ORDERABLES Final Result Performing Organization Address [facility] Co de Phone Number [facility] from Last 3 Months Insurance [facility] [id number] [facility] [address] [id number] Care Teams Floor Technician Relationship Specialty Start Date End Date No, Physician PCP - General 01/31/24 Fermín Reyes MD Medical Oncologist/Writing Manager Hematology and Oncology 08/22/18
--- OUTSIDE RECORDS SUMMARY | 2024-11-06 15:51 | XMS_ITS | CONTINUITY OF CARE DOCUMENT ---
Author Name joel maldonado Address Unknown Organization [facility] Address [address] [place] [address] [address] [place] [address] Phone [phone] Care Team Providers Care Irrigation Equipment Installer Name Role Phone joel maldonado Unavailable Unavailable INSURANCE PROVIDERS Payer name Policy type / Coverage type Isabella red green party ID [place] (2) Medicaid [id number]
--- OUTSIDE RECORDS SUMMARY | 2024-11-06 15:51 | XMS_ITS | Referral Summary ---
Author Organization [facility] Address [address] [place] [address] Care Team Providers Care License Inspector Name Role Phone Fermín Reyes MD Unavailable [phone] No, Physician Primary Care Provider [phone] Encounters Date Type Department Care Team Description 09/10/2024 11:16 AM FLOOR MECHANIC - 09/10/2024 11:59 PM FLOOR MECHANIC Hospital Encounter [facility] PATH[facility] [address]rd [place] [address] Multiple thyroid nodules Discharge Disposition: Discharge to home or self care 09/10/2024 11:20 AM FLOOR MECHANIC Ancillary Procedure [facility] Endocrinology Metabolism and Lipid [address] [place] [address] Floor 1, [address] [place] [address] Multiple thyroid nodules 09/10/2024 11:00 AM FLOOR MECHANIC Procedure visit [facility] Endocrinology Metabolism and Lipid [address] [place] [address] 1, [address] [place] [address] Pepe Madrigal MD Multiple thyroid nodules (Primary Dx); Retrosternal thyroid goiter; Hoarse voice quality from Last 3 Months Allergies Active Allergy Reactions Criticality Noted Date [...] times a day with meals Active vit C,K-Rd-mytbt-lorne tein-zeaxan 250-90-40-1 mg capsule Take by mouth Active Active Problems Problem Noted Date Diagnosed Date 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 Multiple thyroid nodules 01/27/2023 Microcytosis 08/21/2019 Anemia 08/21/2018 Dysphonia 08/20/2009 Hoarse voice quality 08/20/2009 Social History Tobacco Use Types Packs/Day Years [...] on file Legal Sex Female 10:50 AM FLOOR MECHANIC Gender Identity Not on file Sexual Orientation Not on file Last Filed Vital Signs Vital Sign Reading Time Taken Comments Blood Pressure 140/87 09/10/2024 11:17 AM FLOOR MECHANIC Pulse 101 09/10/2024 11:17 AM FLOOR MECHANIC Temperature 36.3 ??C (97.4 ??F) 09/10/2024 11:[address] Respiratory Rate 21 09/10/2024 11:17 AM FLOOR MECHANIC Oxygen Saturation - - Inhaled Oxygen Concentration - - Weight 90.8 kg (200 lb 3.2 oz) 09/10/2024 11:17 AM FLOOR MECHANIC Height 165.1 cm (5' 5 ) 09/10/2024 11:17 AM FLOOR MECHANIC Body Mass Index 33.32 09/10/2024 11:17 AM FLOOR MECHANIC Plan of Treatment Not on file Procedures Procedure Name Priority Date/Time Associated Diagnosis Comments CYTOLOGY Routine 09/10/2024 11:27 AM FLOOR MECHANIC Multiple thyroid nodules POCUS FINE NEEDLE ASP BIOPSY Schedule Routine, Read Routine (OP Routine) 09/10/2024 11:15 AM FLOOR MECHANIC Multiple thyroid nodules from Last 3 Months Results * Cytology (09/10/2024 11:27 AM FLOOR MECHANIC) Fine needle aspirate (Thyroid Gland (Cytology)) 09/10/2024 11:27 AM FLOOR MECHANIC 09/10/2024 12:39 PM FLOOR MECHANIC Narrative PATHOLOGY [facility] - 09/13/2024 9:28 AM FLOOR MECHANIC EPIC results best viewed via link to PDF [facility]ology [place], [place] [id number] Note to Patients: This report may contain [...] Gender: ??F : ??1970 (Age: 54) Address: ??[address] [place], [place] ??[address] Hospital #: ??[id number] Taken:09/10/2024 Received:09/10/2024 Reported: 09/13/2024 Patient Type: [facility] SPECIMEN ?? Service: UNKNOWN Location: Physician(s): ??Pepe [...] favored to represent a benign adenomatous nodule. mk/09/11/2024 10:54 By this signature, I attest that the above diagnosis is based upon my personal examination of the slides(and/or other material indicated in the diagnosis). Pamela Singh M.D. Report Electronically Reviewed and Signed Out By ??Pamela Singh M.D. 09/13/2024 09:28:37 Ingrid Alanis, CT([facility]) Gross Description A. ??Thyroid, right lobe, ultrasound [...] Surgical Pathology and Flow Cytometry Departments at [facility] as part of an ongoing quality system manager program and in compliance with federally mandated [...] Surgical Pathology and Flow Cytometry Departments of [facility]. ??It has not been cleared or approved by the U. S. Food and Drug Administration. Pepe Madrigal MD LAB CYTOLOGY ORDERABLES Final R esult Performing Organization Address [facility] Co de Phone Number PATHOLOGY [facility] [address]rd Floor [place], [place] [phone] * POCUS FINE NEEDLE ASP BIOPSY (09/10/2024 11:15 AM FLOOR MECHANIC) Narrative [facility] - 09/10/2024 11:15 AM FLOOR MECHANIC This procedure was performed and interpreted by the provider. Please refer to the provider's procedure/OR operative note for results. Pepe Madrigal MD POCUS ORDERABLES Final Result Performing Organization Address [facility] Co de Phone Number [facility] from Last 3 Months Insurance [facility] [id number] [facility] [id number] Care Teams License Inspector Relationship Specialty Start Date End Date No, Physician PCP - General 01/31/24 Fermín Reyes MD Medical Oncologist/School Cafeteria Head Cook Hematology and Oncology 08/22/18
--- OUTSIDE RECORDS SUMMARY | 2024-11-06 15:51 | XMS_ITS | Patient Health Summary ---
Author Organization [facility] [employer] Address [address] [place] [address] Care Team Providers Care Errand Runner Name Role Phone Anthony Lou ARISTIDES-VIDEO RECORDER MECHANIC Primary Care Provider + Note from [facility],non-owned Affiliates and Associated Physician Practices is amultiple site organization consisting of ambulatory clinics and hospital sitesin [place], [place] and [place]. This disclosure is being madepursuant to the Care Everywhere program and may not contain all information available regarding this patient. Last updated 18.[facility] Allergies * Pregabalin(Urticaria) -Medium Criticality * Penicillins(Urticaria) -Medium Criticality * Tagamet(Urticaria) -Medium Criticality * Topiramate(Urticaria) -Medium Criticality * Tramadol(Urticaria) -Medium Criticality * Ranitidine(Urticaria) -Medium Criticality Medications * Be aware that medications may not be up to date on this document. Alwaysverify current medications with the patient. * biotin 5000 MCG sublingual tab Dissolve 1 (one) tablet under the tongue as directed * albuterol HFA (ProAir HFA) 108 (90 Base) MCG/ACT inhaler Inhale 2 (two) puffs by mouth every 6 hours as needed * Aspirin (ASPIR-LOW PO) Take 1 tablet by mouth once daily * VITAMIN D PO Take 1 tablet by mouth as directed * Ascorbic Acid (VITAMIN C PO) Take 1 tablet by mouth as directed * Multiple Vitamin (MULTI-VITAMIN DAILY PO) Take 1 tablet by mouth once daily * ELDERBERRY PO Take 1 tablet by mouth as directed Active Problems Problem Noted Date Diagnosed Date Multiple thyroid nodules 01/27/2023 Immunizations * INFLUENZA VACCINE, TRIV. (FLUZONE; FLULAVAL; FLUARIX; AFLURIA TRIVALENT; 6MO+), 0.5 ML (IIV3)(Given 10/25/2013) * TDAP, HISTORIC VACCINE(Given 05/27/2008) Social History Tobacco Use Types Packs/Day Years [...] Mass Index 30.19 01/27/2023 8:21 AM CDT Procedures * IMAGING/RADIOLOGY/XRAY RESULTS ORDER(Performed 02/09/2023) * IL LARYNGOSCOPY,FLEX FIBER,DIAGNOSTIC(Performed 01/27/2023) Performed for Hoarseness, Multiple thyroid nodules Results * IMAGING RADIOLOGY XRAY RESULTS ORDER (02/09/2023) Anatomical Region Laterality Modality Other 02/09/2023 Narrative 02/09/2023 Ordered by an unspecified provider. Scanned Document IMAGING * IL LARYNGOSCOPY,FLEX FIBER,DIAGNOSTIC (01/27/2023 11:15 AM CDT) Narrative Darron Álvarez MD - 01/27/2023 11:15 AM CDT Darron Álvarez MD ? 01/27/2023 11:16 AM Procedure Note Anesthesia: Lidocaine 2% and Augusto-Synephrine 1/2% Endoscopy Type: ??Flexible Xrbun-Sfwbyltdzkxpfe-Bbvmgwlnjigk Procedure Details: ??Informed consent was obtained. ??The patient was placed in the sitting position. ??After topical anesthesia and decongestion, the 4 mm laryngoscope was passed. ??The nasal cavities, nasopharynx, oropharynx, hypopharynx, and larynx were all examined. ??Vocal cords were examined during respiration and phonation. Findings: -Overall with prompting and various vocal maneuvers she is able to demonstrate complete vocal cord motion and good glottic closure. ??But intermittently she demonstrates increased muscle tension and intermittent incomplete glottic closure with associated breathy voice. Disposition: The patient tolerated procedure well. Complications: None Darron Álvarez MD PROCEDURE/MINOR SURG ICAL ORDERABLES Care Teams Errand Runner Relationship Specialty Start Date End Date Lou Cruz APRN-VIDEO RECORDER MECHANIC [address] [address] PCP - General 12/15/22
--- OUTSIDE RECORDS SUMMARY | 2024-11-06 15:51 | XMS_ITS | Clinical Summary ---
Author Organization [facility] Lyndsey Miller Address [address] [place] [address] Care Team Providers Care Sales Technician Home Theater Name Role Phone Lou Cruz Primary Care Provider [phone] Allergies Active Allergy Reactions Criticality Noted Date Comments Dexlansoprazole Unknown 08/06/2019 Penicillins Unknown 08/06/2019 Ranitidine Hcl Unknown 08/06/2019 Tagamet In 0.9 % Sod. Chloride Unknown 08/06 Topiramate Unknown 08/06/2019 Tramadol Unknown 08/06/2019 Medications metFORMIN (GLUCOPHAGE) 1,000 mg tablet Take 1,000 mg by mouth 2 times daily with meals. Active omeprazole (PriLOSEC) 40 mg Capsule, Delayed Release(E.C.) Take 40 mg by mouth daily. Active biotin 5,000 mcg Tablet, Sublingual Place under tongue. Active PNV no.95/ferrous fum/folic ac ( MULTIVITAMINS ORAL) Take by mouth. Active cholecalciferol, Vitamin D3, (VITAMIN D3) 2,000 unit Tablet Take by mouth. Active Lactobacillus rhamnosus GG (CULTURELLE KIDS PROBIOTICS ORAL) Take by mouth. Active esomeprazole (NexIUM) 40 mg Capsule, Delayed Release(E.C.) TAKE 1 CAPSULE BY MOUTH ONCE DAILY 3 9 Active methylPREDNISolone (MEDROL DOSPACK) 4 mg Tablets, Dose Pack TAKE BY MOUTH DIRECTED ON INSIDE OF PACKAGE 0 Active azithromycin (ZITHROMAX) 250 mg tablet TAKE 2 TABLETS BY MOUTH ON DAY 1 AND THEN TAKE 1 TABLET BY MOUTH ONCE A DAY ON DAY 2 THROUGH DAY 5 0 Active Active Problems Problem Noted Date Diagnosed Date Microcytosis 08/21/2019 Family History Medical History Relation Name Comments Diabetes Father Relation Name Status Comments Brother 1 Alive Brother 2 Alive Father Alive Mother Alive Social History Tobacco Use Types Packs/Day Years Used Date Smoking Tobacco: Never Smokeless Tobacco: Never Alcohol Use Standard Drinks/Week Comments Yes 0 (1 standard drink = 0.6 oz pur e alcohol) Comments No Sex and Gender Information Value Date Recorded Sex Assigned at Not on file Legal Sex Female 12:35 PM CDT Gender Identity Not on file Sexual Orientation Not on file Last Filed Vital Signs Vital Sign Reading Time Taken Comments Blood Pressure 142/79 11/19/2019 3:58 PM ANALOG IC DESIGN ENGINEER Pulse 71 11/19/2019 3:58 PM ANALOG IC DESIGN ENGINEER Temperature 36.8 ??C (98.3 ??F) 11/19/2019 3:58 PM CS T Respiratory Rate - - Oxygen Saturation 98% 11/19/2019 3:58 PM ANALOG IC DESIGN ENGINEER Inhaled Oxygen Concentration - - Weight 96.1 kg (211 lb 12.8 oz) 11/19/2019 3:58 PM ANALOG IC DESIGN ENGINEER Height 165.1 cm (5' 5 ) 11/19/2019 3:58 PM ANALOG IC DESIGN ENGINEER Body Mass Index 35.25 11/19/2019 3:58 PM ANALOG IC DESIGN ENGINEER Plan of Treatment Health Maintenance Due Date Last Done Comments DTAP/TDAP/TD VACCINES (1 - Tdap) 1991 HEPATITIS B VACCINES (1 of 3 - 19+ 3-dose series) 1991 CERVICAL CANCER SCREENING 2002 BREAST CANCER SCREENING 2012 COLORECTAL SCREENING 2017 Colorectal Cancer Screening 2017 FIT-DNA Q 3 years 2017 FIT/FOBT Q 1 year 2017 Flex Sig/CT Colonography Q 5 years 2017 ZOSTER VACCINE (1 of 2) 2022 INFLUENZA VACCINE (#1) 2024 PNEUMOCOCCAL VACCINE 0-64 YEARS Aged Out No longer eligible based on patient's age to complete this topic Care Teams Sales Technician Home Theater Relationship Specialty Start Date End Date Lou Cruz ANP [address] [id number] PCP - General Nurse Practitioner Adult Health 07/12/19
== END 2024-11-06 14:59 | disposition home or self-care (01) ==
LOC: ANHIMG 15:02
PROVIDERS: Visit Provider Obstetrics & Gynecology
DX: Z12.31 Encounter for screening mammogram for malignant neoplasm of breast (principal)
CPT/HCPCS: 77063; 77067

== ENCOUNTER 2024-11-28 13:00 | Emergency (ER) | payer OTHER, SELFPAY ==
--- NOTE | ~2024-11-28 | XR_ITS ---
EXAMINATION: XR chest 2V DATE: 11/28/2024 13:38 INDICATION: Cough. Shortness of breath. TECHNIQUE: Frontal and lateral views of the chest were obtained. COMPARISON: Chest 2 views 09/17/2024 FINDINGS: There is no pneumonia, pleural effusion, or pneumothorax. The heart size is normal. IMPRESSION: 1. No acute cardiopulmonary disease. Reviewed, dictated and finalized at location A. L TANKER TRUCK DRIVER
[2024-11-28 13:09] VITALS: BP 132/85; PULSE 97; RESP 16; TEMP 36.6; O2SAT 100
--- NOTE | 2024-11-28 13:20 | ED.URI ---
HPI - URI/Sore Throat General Chief Complaint: Upper Respiratory Infection Stated Complaint: Cough/Sore Throat Time Seen by Provider: 11/28/24 13:20 Source: patient Mode of arrival: ambulatory Limitations: no limitations History of Present Illness HPI Narrative: 54-year-old female presents with complaint of cough for at least 2 months. Patient states was sick around Tasia time with sinus infection. Complaint an antibiotic and never stops coughing. In October had influenza and continues to have cough. Reports shortness of breath with exertion at times. Chest pain with coughing. Has tried [id number] Mucinex DM with no relief of symptoms. History of asthma. Reports albuterol inhaler is . Using Nasacort nasal spray for sinus congestion and pressure. Does not take a daily antihistamine. States in the past taking a daily antihistamine has caused her to feel fatigued. All systems reviewed and negative except as noted above. Related Data Home Medications ?Medication ?Instructions ?Recorded ?Confirmed ?Last Taken ?Type Lactobacillus rhamnosus GG 5 5,000 mmu cells PO DAILY 08/18/20 12/07/22 10/09/21 History billion cell chewable tablet (Rapid Pathogen Screening Probiotics) albuterol sulfate 90 mcg/actuation 1 inh inhalation Q4H 08/18/20 11/28/24 10/09/21 History aerosol inhaler (Proventil HFA) ascorbate calcium (vitamin C) 500 500 mg PO DAILY 08/18/20 12/07/22 10/09/21 History mg tablet biotin 5,000 mcg disintegrating 10,000 mcg PO DAILY 08/18/20 12/07/22 10/09/21 History tablet cholecalciferol (vitamin D3) 125 125 mcg PO DAILY 08/18/20 12/07/22 10/09/21 History mcg (5,000 unit) capsule ferrous sulfate 325 mg (65 mg 325 mg PO DAILY 08/18/20 12/07/22 10/09/21 History iron) tablet (Feosol) multivitamin (Daily Multi-Vitamin 1 tablet PO DAILY 08/18/20 12/07/22 10/09/21 History tablet) vitamins A,C,J-wvyt-nednjd 4,296 1 cap PO BID 08/20/21 12/07/22 10/09/21 History mcg-226 mg-90 mg capsule (PreserVision AREDS) Allergies Allergy/AdvReac Type Severity Reaction Status Date / Time dexlansoprazole Allergy Severe Hives / Verified 11/28/24 13:07 Red Face pregabalin Allergy Severe Anaphylactic Verified 11/28/24 13:07 Shock wheat Allergy Severe GI ISSUES Verified 11/28/24 13:07 lactose Allergy Intermediate GI ISSUES Verified 11/28/24 13:07 topiramate Allergy Intermediate Rash Verified 11/28/24 13:07 cimetidine Allergy Mild HIVES Verified 11/28/24 13:07 Penicillins Allergy Mild HIVES, Verified 11/28/24 13:07 ITCHING ranitidine Allergy Mild HIVES Verified 11/28/24 13:07 tramadol Allergy Mild SWELLING Verified 11/28/24 13:07 LOWER EXTREMITIES. adhesive tape AdvReac Severe PAPER Verified 11/28/24 13:07 TAPE=SKIN IRRITATION TO SITE trimethobenzamide AdvReac Unknown Abdominal Verified 11/28/24 13:07 Pain Review of Systems Review of Systems: CONSTITUTIONAL: Denies fever, chills, or sweats. EYES: Denies visual changes, redness, or discharge. ENT: Reports rhinorrhea, congestion, sinus pressure, nasal drainage. Denies sore throat, or otalgia. CARDIOVASCULAR: Denies chest pain, palpitations, or edema. RESPIRATORY: Reports cough, chest congestion, chest pain with coughing, dyspnea with exertion. GASTROINTESTINAL: Denies abdominal pain, nausea, vomiting, or diarrhea. GENITOURINARY: Denies dysuria or hematuria. SKIN: Denies rash or itching. MUSCULOSKELETAL: Denies back pain, joint pain, or myalgia. NEUROLOGIC: Denies headache, numbness, or weakness. PSYCHIATRIC: Denies anxiety or depression. All other systems reviewed are negative, except as documented in HPI. [facility] Past Medical History Medical History Abnormal uterine bleeding Anemia Angina at rest Anxiety Asthma Bulging disc Colon cancer screening Depression Diabetes Dry senile macular degeneration Fibromyalgia Fractures toe GERD (gastroesophageal reflux disease) History of COVID-19 Hyperlipidemia Hypertension Nuclear age-related cataract, both eyes Sleep difficulties Ulcer Surgical History Surgical History H/O dilation and curettage Hx of cholecystectomy Family History Family History Grandparent Heart disease Diabetes mellitus Hypertension Social History Social History Smoking status: Never smoker Alcohol intake: never Substance use: never Lack of Transportation: No Lack of Food: Never True Current Housing: I Have Housing Concerned About Future Housing: No Difficulty Paying Gas/Electric Bills: No Difficulty Paying for Meds: No Currently Unemployed: No Difficulty w/ Childcare or Family Care: No Gender identity (if verbalized by the patient): Female Comments At time of signature, agree with nursing past medical, surgical, social and family history. There is no relevant family history pertinent to the presenting complaint. Exam Narrative: GENERAL: This is a well-nourished, well-developed patient, in no apparent distress. HEAD: normocephalic, atraumatic. EYES: PERRL. Sclera clear/white. Vision is grossly intact. EARS: External ears normal, auditory canals clear and without drainage, TMs normal without perforation. Hearing grossly intact. NOSE: External nose normal with purulent nasal drainage, erythema swelling to bilateral nares, maxillary sinus tenderness on palpation bilaterally THROAT: Mucous membranes moist, erythematous with postnasal drainage NECK: Neck supple, non-tender without lymphadenopathy, masses or thyromegaly. CARDIOVASCULAR: Regular rate and rhythm without murmurs, gallops, or rubs. RESPIRATORY: Decreased lung griffiths on expiration Breath sounds equal bilaterally. No wheezes, rales, or rhonchi. SKIN: warm, Dry, intact with no suspicious lesions or rash, good texture and turgor. NEURO: awake, alert, and oriented to person, place and time. There were no obvious focal neurologic abnormalities. EXTREMITIES: No joint tenderness, effusion, or edema noted. Course Course Level of Care: Express Care Visit Vital Signs Vital signs: Vital Signs Temperature 36.6 C 11/28/24 13:09 Pulse Rate 97 11/28/24 13:09 Respiratory Rate 16 11/28/24 13:09 Blood Pressure 132/85 11/28/24 13:09 Pulse Oximetry 100 11/28/24 13:09 Temperature 36.6 C 11/28/24 13:09 Pulse Rate 97 11/28/24 13:09 Respiratory Rate 16 02/20/25 13:09 Blood Pressure 132/85 11/28/24 13:09 Pulse Oximetry 100 11/28/24 13:09 Reviewed MDM - URI/Sore Throat MDM Narrative Medical decision making narrative: Chest x-ray negative for pneumonia. Will treat patient with prednisone for asthma exacerbation. Refilled albuterol inhaler. Patient is in no respiratory distress. Alert, nontoxic. Will prescribe antibiotic for bacterial sinusitis due to duration of symptoms and exam findings. Please be advised this is a medical document. It is intended for [id number] communication. It is written in medical language and may contain unfamiliar abbreviations or verbiage. Medical documents are intended to carry relevant information, facts as evident, and the clinical opinion of the practitioner at the time of the encounter. This report may have been done utilizing a voice recognition system. Attempts have been made to correct errors. However, there may be uncorrected grammatical, spelling, and recognition errors present. The file time of this note does not necessarily represent the time of service. Imaging Data My impression: agree with radiologist Radiologist's impression: EXAMINATION: XR chest 2V DATE: 11/28/2024 13:38 INDICATION: Cough. Shortness of breath. TECHNIQUE: Frontal and lateral views of the chest were obtained. COMPARISON: Chest 2 views 09/17/2024 FINDINGS: There is no pneumonia, pleural effusion, or pneumothorax. The heart size is normal. IMPRESSION: 1. No acute cardiopulmonary disease. Discharge Plan Discharge Clinical Impression: Acute bacterial sinusitis, Asthma exacerbation Patient Disposition: Home, Self-Care Condition: Stable Instructions: Antibiotic Form, Sinusitis (ED) Additional Instructions: Your chest x-ray was normal. Take medications as prescribed. Continue using Nasacort as directed on packaging. Take Tylenol or ibuprofen every 6-8 hours as needed for pain and fever. Drink at least 64 oz of water a day. Place cool mist humidifier in bedroom recently. Follow-up with your primary care physician if symptoms are not improving. Patient Language: Indonesian Prescriptions: New doxycycline hyclate 100 mg capsule 100 mg PO BID 7 Days Qty: 14 0RF benzonatate 200 mg capsule 200 mg PO TID PRN (Reason: cough) Qty: 20 0RF prednisone 20 mg tablet 40 mg PO DAILY 5 Days Qty: 10 0RF albuterol sulfate 90 mcg/actuation HFA aerosol inhaler 2 puff inhalation Q4-6H PRN (Reason: shortness of breath or wheezing) Qty: 8.5 0RF No Action cholecalciferol (vitamin D3) 125 mcg (5,000 unit) capsule 125 mcg PO DAILY ascorbate calcium (vitamin C) 500 mg tablet 500 mg PO DAILY biotin 5,000 mcg tablet,disintegrating 10,000 mcg PO DAILY ferrous sulfate [Feosol] 325 mg (65 mg iron) tablet 325 mg PO DAILY multivitamin [Daily Multi-Vitamin] Tablet 1 tablet PO DAILY albuterol sulfate [Proventil HFA] 90 mcg/actuation HFA aerosol inhaler 1 inh inhalation Q4H Culturelle Kids Probiotics 5 billion cell tablet,chewable 5,000 mmu cells PO DAILY PreserVision AREDS 14,320-226-200 llqd-jj-ebsi capsule 1 cap PO BID Follow-up/Referrals: PHYSICIAN,EMPLOYEE OPERATIONS EXAMINER [Primary Care Provider] - Stand Alone Forms: Work/School Release IP Time of Disposition: 13:53
== END 2024-11-28 14:05 | disposition home or self-care (01) ==
PROVIDERS: Emergency Provider Nurse Practitioner Family
DX: J01.90 Acute sinusitis, unspecified (principal); J45.901 Unspecified asthma with (acute) exacerbation; E11.9 Type 2 diabetes mellitus without complications; M79.7 Fibromyalgia; K21.9 Gastro-esophageal reflux disease without esophagitis; I10 Essential (primary) hypertension; E78.5 Hyperlipidemia, unspecified; I20.9 Angina pectoris, unspecified; D64.9 Anemia, unspecified; Z86.16 Personal history of COVID-19
CPT/HCPCS: 71046; 99213; G0463

== ENCOUNTER 2025-02-20 15:25 | Emergency (ER) | payer OTHER, SELFPAY ==
--- NOTE | 2025-02-20 15:34 | ED_ITS ---
HPI - Wound/Laceration General Chief Complaint: Wound/Laceration Stated Complaint: Cut Right Leg Time Seen by Provider: 02/20/25 15:37 Source: patient, RN notes reviewed and old records reviewed Mode of arrival: ambulatory Limitations: no limitations History of Present Illness HPI narrative: 54-year-old female presents to the [facility] with a cut to the posterior right knee. States that she backed into a piece class. States that there was blood everywhere. bleeding is controlled. Patient reports up-to-date on tetanus. Related Data Home Medications Medication Instructions Recorded Confirmed Last Taken Type albuterol sulfate 90 mcg/actuation 1 inh inhalation Q4H 08/18/20 02/20/25 10/09/21 History aerosol inhaler (Proventil HFA) ascorbate calcium (vitamin C) 500 500 mg PO DAILY 08/18/20 02/20/25 10/09/21 History mg tablet biotin 5,000 mcg disintegrating 10,000 mcg PO DAILY 08/18/20 02/20/25 10/09/21 History tablet cholecalciferol (vitamin D3) 125 125 mcg PO DAILY 08/18/20 02/20/25 10/09/21 History mcg (5,000 unit) capsule ferrous sulfate 325 mg (65 mg 325 mg PO DAILY 08/18/20 02/20/25 10/09/21 History iron) tablet (Feosol) multivitamin (Daily Multi-Vitamin 1 tablet PO DAILY 08/18/20 02/20/25 10/09/21 History tablet) Elderberry 02/20/25 Unknown History Allergies Allergy/AdvReac Type Severity Reaction Status Date / Time dexlansoprazole Allergy Severe Hives / Verified 02/20/25 15:37 Red Face pregabalin Allergy Severe Anaphylactic Verified 02/20/25 15:37 Shock wheat Allergy Severe GI ISSUES Verified 02/20/25 15:37 lactose Allergy Intermediate GI ISSUES Verified 02/20/25 15:37 topiramate Allergy Intermediate Rash Verified 02/20/25 15:37 cimetidine Allergy Mild HIVES Verified 02/20/25 15:37 Penicillins Allergy Mild HIVES, Verified 02/20/25 15:37 ITCHING ranitidine Allergy Mild HIVES Verified 02/20/25 15:37 tramadol Allergy Mild SWELLING Verified 02/20/25 15:37 LOWER EXTREMITIES. adhesive tape AdvReac Severe PAPER Verified 02/20/25 15:37 TAPE=SKIN IRRITATION TO SITE trimethobenzamide AdvReac Unknown Abdominal Verified 02/20/25 15:37 Pain Review of Systems 2 Review of Systems: All systems reviewed & are unremarkable except as noted in HPI and below Constitutional: Constitutional: Reports no additional constitutional complaints ENT: Reports system reviewed and no additional complaints, except as documented Cardiovascular: Cardiovascular: Reports no additional cardiovascular complaints, Denies chest pain and Denies dyspnea Respiratory: Respiratory: Reports no additional respiratory complaints, Denies chest congestion, Denies cough and Denies dyspnea Musculoskeletal: Musculoskeletal: Reports no additional musculoskeletal complaints Integumentary/Breasts: Skin/Breast: Reports as per HPI [facility] Past Medical History Medical History History of COVID-19 Colon cancer screening Nuclear age-related cataract, both eyes Dry senile macular degeneration Sleep difficulties Anemia Anxiety Depression Diabetes Bulging disc Fractures toe Fibromyalgia Abnormal uterine bleeding GERD (gastroesophageal reflux disease) Ulcer Asthma Hyperlipidemia Hypertension Angina at rest Surgical History Surgical History H/O dilation and curettage Hx of cholecystectomy Family History Family History Grandparent Heart disease Diabetes mellitus Hypertension Social History Social History Smoking status: Never smoker Alcohol intake: never Substance use: never Lack of Transportation: No Lack of Food: Never True Current Housing: I Have Housing Concerned About Future Housing: No Difficulty Paying Gas/Electric Bills: No Difficulty Paying for Meds: No Currently Unemployed: No Difficulty w/ Childcare or Family Care: No Gender identity (if verbalized by the patient): Female Comments At the time of my signature, I reviewed and agree with the nursing past medical, surgical, social, and family history. There is no relevant family history pertinent to the patient complaint. Exam 2 Const: General: cooperative, healthy appearing, comfortable, no acute distress, well developed, alert and well nourished Nutritional Appearance: w ell nourished Orientation/consciousness: patient oriented x3 Limitations: no limitations HENMT: Head: normal to inspection Eyes: General: appearance normal, both eyes and all related structures Neck: Neck: normal visual inspection, full ROM, no lymphadenopathy and no meningeal signs Chest: Chest palpation & inspection: normal inspection of the chest Resp: Effort & Inspection: normal respiratory effort and able to speak in complete sentences Cardio: Rate: regular rate Skin: General skin exam: normal color and no rashes or lesions noted Full body images: 1. 0.7cm Abrasion without drainage, bleeding controlled Neuro: General: patient oriented x3, gait normal, moves all extremities and no meningeal signs Cognition (Neuro): normal cognition Speech: normal speech Gait exam (Neuro): Normal gait present Extrem: General: normal to inspection, full ROM, capillary refill normal and normal gait Psych: Appearance: grossly normal and well kempt Mental Status: mental status grossly normal Speech and movement: Normal speech and movement present and Clear speech present Affect: normal affect Attitude: cooperative Course Course Level of Care: Express Care Visit Vital Signs Vital signs: Vital Signs Temperature 98.6 F 02/20/25 15:38 Pulse Rate 100 02/20/25 15:38 Respiratory Rate 16 02/20/25 15:38 Blood Pressure 134/95 H 02/20/25 15:38 Pulse Oximetry 98 02/20/25 15:38 Temperature 98.6 F 02/20/25 15:38 Pulse Rate 100 02/20/25 15:38 Respiratory Rate 16 02/20/25 15:38 Blood Pressure 134/95 H 02/20/25 15:38 Pulse Oximetry 98 02/20/25 15:38 Reviewed MDM - Wound/Laceration MDM Narrative Medical decision making narrative: patient presents to have an abrasion to the posterior right knee evaluated. No bleeding noted, washed with soap and saline. Area is clean, dry. Patient appropriate for outpatient treatment with close follow-up as needed Discharge instructions reviewed with patient, as well as provided in writing per nursing staff. The instructions also include specific and strict return/GO TO THE ER as well as f/u information. All questions have been answered, and the patient deny any further questions with discharge and discharge plan. Some parts of this dictation were generated by voice recognition software and may contain typographical and/or grammatical inaccuracies. Differential Diagnosis Differential diagnosis: Likely laceration, abscess, abrasion and avulsion of skin Critical Care Time Critical Care Time Critical Care Time: No Discharge Plan Discharge Clinical Impression: Abrasion of skin Patient Disposition: Home Condition: Stable Instructions: Abrasion (ED) Additional Instructions: keep area clean and dry. Wash with warm soapy water twice daily, pat dry. Keep a bandage over it during the day, open to air at night Patient Language: Faroese Prescriptions: No Action albuterol sulfate 90 mcg/actuation HFA aerosol inhaler 2 puff inhalation Q4-6H PRN (Reason: shortness of breath or wheezing) Qty: 8.5 0RF Elderberry cholecalciferol (vitamin D3) 125 mcg (5,000 unit) capsule 125 mcg PO DAILY ascorbate calcium (vitamin C) 500 mg tablet 500 mg PO DAILY biotin 5,000 mcg tablet,disintegrating 10,000 mcg PO DAILY ferrous sulfate [Feosol] 325 mg (65 mg iron) tablet 325 mg PO DAILY multivitamin [Daily Multi-Vitamin] Tablet 1 tablet PO DAILY albuterol sulfate [Proventil HFA] 90 mcg/actuation HFA aerosol inhaler 1 inh inhalation Q4H Follow-up/Referrals: PHYSICIAN,MEDICATION COORDINATOR [Primary Care Provider] - Time of Disposition: 15:44
[2025-02-20 15:38] VITALS: BP 134/95; PULSE 100; RESP 16; TEMP 37; O2SAT 98
== END 2025-02-20 15:47 | disposition home or self-care (01) ==
PROVIDERS: Emergency Provider Nurse Practitioner
DX: S70.311A Abrasion, right thigh, initial encounter (principal); W26.0XXA Contact with knife, initial encounter; I10 Essential (primary) hypertension; E11.36 Type 2 diabetes mellitus with diabetic cataract; M79.7 Fibromyalgia; K21.9 Gastro-esophageal reflux disease without esophagitis; J45.909 Unspecified asthma, uncomplicated; E78.5 Hyperlipidemia, unspecified; I20.9 Angina pectoris, unspecified; D64.9 Anemia, unspecified; Z86.16 Personal history of COVID-19
CPT/HCPCS: 99212; G0463

== ENCOUNTER 2025-04-25 15:48 | Emergency (ER) | payer OTHER, SELFPAY ==
--- NOTE | ~2025-04-25 | XR_ITS ---
EXAM: XR hand RT min 3V DATE: 04/25/2025 19:29 HISTORY: smashed hand in door . COMPARISON: None available. FINDINGS: Normal mineralization. No fracture or dislocation. No lytic or blastic lesion. Joint space s are maintained. No erosion or periosteal change. Soft tissues within normal limits. IMPRESSION: No acute osseous finding in the right hand. Reviewed, dictated and finalized at location K.
--- NOTE | ~2025-04-25 | XR_ITS ---
EXAM: XR shoulder RT min 2V DATE: 04/25/2025 19:29 HISTORY: pain in R shoulder . COMPARISON: None available. FINDINGS: Normal mineralization. No fracture or dislocation. No lytic or blastic lesion. Joint space s are maintained. No erosion or periosteal change. Soft tissues within normal limits. IMPRESSION: No acute osseous finding in the right shoulder. Reviewed, dictated and finalized at location K.
--- NOTE | ~2025-04-25 | US_ITS ---
EXAMINATION: US venous doppler [facility] DATE: 04/25/2025 20:13 INDICATION: SWELLING . TECHNIQUE: Grayscale images without and with compression and Doppler images of the bilateral lower ex tremity veins were obtained. COMPARISON: None FINDINGS: The right common femoral vein, profunda (deep) femoral vein, femoral vein, popliteal vein, peroneal v ein, posterior tibial veins, and greater saphenous vein are patent. The left common femoral vein, profunda (deep) femoral vein, femoral vein, popliteal vein, peroneal v ein, posterior tibial veins, and greater saphenous vein are patent. IMPRESSION: Patent bilateral lower extremity veins. No evidence of deep venous thrombosis. Reviewed, dictated and finalized at location K.
--- NOTE | ~2025-04-25 | XR_ITS ---
EXAM: XR foot LT min 3V DATE: 04/25/2025 19:29 HISTORY: pain along 5th MT . COMPARISON: None available. FINDINGS: Normal mineralization. No fracture or dislocation. No lytic or blastic lesion. Joint space s are maintained. Moderate Achilles and mild plantar enthesopathy. No erosion or periosteal change. S oft tissues within normal limits. IMPRESSION: No acute osseous finding the left foot. Reviewed, dictated and finalized at location K.
--- OUTSIDE RECORDS SUMMARY | 2025-04-25 15:51 | XMS_ITS | Clinical Summary ---
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 Multiple thyroid nodules 01/27/2023 Microcytosis 08/21/2019 Anemia 08/21/2018 Dysphonia 08/20/2009 Hoarse voice quality 08/20/2009 Surgical History Surgery Date Site/Laterality Comments CHOLECYSTECTOMY [...] on file Legal Sex Female 10:50 AM POLYMERIZATION OVEN TENDER Gender Identity Not on file Sexual Orientation Not on file Obstetrics History Last Filed Vital Signs Vital Sign Reading Time Taken Comments Blood Pressure 140/87 09/10/2024 11:17 AM POLYMERIZATION OVEN TENDER Pulse 101 09/10/2024 11:17 AM POLYMERIZATION OVEN TENDER Temperature 36.3 C (97.4 F) 09/10/2024 11:17 AM POLYMERIZATION OVEN TENDER Respiratory Rate 21 09/10/2024 11:17 AM POLYMERIZATION OVEN TENDER Oxygen Saturation - - Inhaled Oxygen Concentration - - Weight 90.8 kg (200 lb 3.2 oz) 09/10/2024 11:17 AM POLYMERIZATION OVEN TENDER Height 165.1 cm (5' 5) 09/10/2024 11:17 AM POLYMERIZATION OVEN TENDER Body Mass Index 33.32 09/10/2024 11:17 AM POLYMERIZATION OVEN TENDER Plan of Treatment Health Maintenance Due Date [...] 5 season) 2024 04/28/2021 Influenza Vaccine (#1) 2025 10/25/2013 Pneumococcal vaccine <65 Aged Out No longer eligible based on patient's age to complete this topic Insurance [facility] [id number] [facility] [facility] [id number] Care Teams System Support Developer Relationship Specialty Start Date End Date No, Physician PCP - General 01/31/24 Fermín Reyes MD Medical Oncologist/Final Inspector Movement Assembly Hematology and Oncology 08/22/18
--- OUTSIDE RECORDS SUMMARY | 2025-04-25 15:51 | XMS_ITS | Clinical Summary ---
Author Organization [facility] Address [address] [place] [address] Care Team Providers Care Oracle Erp Architect Name Role Phone Anthony Lou RUFINA Primary Care Provider + Source Comments [facility],non-owned Affiliates and Associated Physician Practices is amultiple site organization consisting of ambulatory clinics and hospital sitesin [place], [place], [place] and [place]. This disclosure is being madepursuant to the Care Everywhere program and may not contain all information available regarding this patient. Last updated 18.[facility] Allergies Active Allergy Reactions Criticality Noted Date Comments Pregabalin Urticaria Medium 01/27/2023 Penicillins Urticaria Medium 08/06/2019 Tagamet Urticaria Medium 01/27/2023 Topiramate Urticaria Medium 08/06/2019 Tramadol Urticaria Medium 08/06/2019 Ranitidine Urticaria Medium 01/27/2023 Medications * Be aware that medications may not be up to date on this document. Alwaysverify current medications with the patient. biotin 5000 MCG sublingual tab Dissolve 1 [...] Diagnosed Date Multiple thyroid nodules 01/27/2023 Immunizations Immunization Administration Dates Next Due INFLUENZA VACCINE, TRIV. (FL UZONE; FLULAVAL; FLUARIX; AFLURIA TRIVALENT; 6MO+), 0.5 ML (IIV3) 10/25/2013 TDAP, HISTORIC VACCINE 05/27/2008 Social History Tobacco Use Types Packs/Day Years Used Date Smoking Tobacco: Never Smokeless Tobacco: Never Tobacco Cessation:Counseling Given: Not Answered Alcohol Use Standard Drinks/Week Comments Yes 0 (1 standard drink = 0.6 oz pur e alcohol) 2 drinks a year Comments Unknown Sex and Gender Information Value Date Recorded Sex Assigned at Not on file Legal Sex Female 7:17 PM FRONT END UI DEVELOPER Gender Identity Not on file Sexual Orientation [...] A M CDT Height 165.1 cm (5' 5) 01/27/2023 8:21 AM CDT Body Mass Index [...] SCREENING 1972 LIPID TESTING 1972 MAMMOGRAM 1972 HIV SCREENING 1987 HEPATITIS C SCREENING 08/29/1990 HEPATITIS B VACCINE (1 of 3 - 19+ 3-dose series) 1991 PAP SMEAR 1993 DTAP/TDAP/TD VACCINES (2 - T d or Tdap) 05/27/2018 05/27/2008 PNEUMOCOCCAL VACCINE 50+ (1 of 1 - PCV) 2022 ZOSTER VACCINE (1 of 2) 2022 SCREENING FOR DIABETES 01/27/2023 COVID-19 VACCINE (2 - 4-2 5 season) 2024 04/28/2021 DEPRESSION SCREENING 10/09/2024 INFLUENZA VACCINE (#1) 2025 10/25/2013 HIB VACCINE Aged Out No longer eligi ble based on patient's age to complete this topic HPV VACCINE Aged Out No longer eligi ble based on patient's age to complete this topic MENINGOCOCCAL (Group B) VACC INE SHARED DECISION-MAKING Aged Out No longer eligibl e based on patient's age to complete this topic MENINGOCOCCAL GROUPS A/C/Y/W VACCINE Aged Out No longer eligible b ased on patient's age to complete this topic Insurance [employer] Member Subscriber Plan / Payer ( fective 2021-Present) Name:Marcellus Aguila Member ID:[id number] Relation to Subscriber:Self Name:Ayla Brendenmalinda Subscriber ID:[id number] Payer ID:Not on file Type:[employer] Address: [facility] [address] [place] [phone] [employer] Care Teams Oracle Erp Architect Relationship Specialty Start Date End Date Lou Cruz APRN-CNP [address] [phone] PCP - General 12/15/22
--- OUTSIDE RECORDS SUMMARY | 2025-04-25 15:51 | XMS_ITS | Clinical Summary ---
Author Organization [facility] Miller Address [address] [place] [address] Care Team Providers Care Certified Nutritionist Name Role Phone Lou Cruz Primary Care Provider [phone] Allergies Active Allergy Reactions Criticality Noted Date [...] Comments Blood Pressure 142/79 11/19/2019 3:58 PM RETRIMMER Pulse 71 11/19/2019 3:58 PM RETRIMMER Temperature 36.8 C (98.3 F) 11/19/2019 3:58 PM RETRIMMER Respiratory Rate - - Oxygen Saturation 98% 11/19/2019 3:58 PM RETRIMMER Inhaled Oxygen Concentration - - Weight 96.1 kg (211 lb 12.8 oz) 11/19/2019 3:58 PM RETRIMMER Height 165.1 cm (5' 5) 11/19/2019 3:58 PM RETRIMMER Body Mass Index 35.25 11/19/2019 3:58 PM RETRIMMER Plan of Treatment Health Maintenance Due Date Last Done Comments DTAP/TDAP/TD VACCINES (1 - Tdap) 1991 HEPATITIS B VACCINES (1 of 3 - 19+ 3-dose series) 08/10 HPV/Cotest (21-29) 1993 CERVICAL CANCER SCREENING 2002 HPV/Cotest (30-65) 2002 PAP SMEAR 2002 BREAST CANCER SCREENING 2012 COLORECTAL SCREENING 2017 Colorectal Cancer Screening 2017 FIT-DNA Q 3 years 2017 FIT/FOBT Q 1 year 2017 Flex Sig/CT Colonography Q 5 years 2017 ZOSTER VACCINE (1 of 2) 2022 INFLUENZA VACCINE (#1) 2025 Care Teams Certified Nutritionist Relationship Specialty Start Date End Date Lou Cruz ANP [address] [phone] PCP - General Nurse Practitioner Adult Health 07/12/19
--- OUTSIDE RECORDS SUMMARY | 2025-04-25 15:51 | XMS_ITS | Referral Summary ---
Author Organization [facility] Address [address] [place] [address] Care Team Providers Care Coverstitch Binder Name Role Phone Fermín Reyes MD Unavailable [phone] No, Physician Primary Care Provider Allergies Active Allergy Reactions Criticality Noted Date [...] times a day with meals Active vit C,V-Za-vwsmq-lorne tein-zeaxan 250-90-40-1 mg capsule Take by mouth [...] on file Legal Sex Female 10:50 AM MAIL SERVICE COORDINATOR Gender Identity Not on file Sexual Orientation Not on file Last Filed Vital Signs Vital Sign Reading Time Taken Comments Blood Pressure 140/87 09/10/2024 11:17 AM MAIL SERVICE COORDINATOR Pulse 101 09/10/2024 11:17 AM MAIL SERVICE COORDINATOR Temperature 36.3 C (97.4 F) 09/10/2024 11:17 AM MAIL SERVICE COORDINATOR Respiratory Rate 21 09/10/2024 11:17 AM MAIL SERVICE COORDINATOR Oxygen Saturation - - Inhaled Oxygen Concentration - - Weight 90.8 kg (200 lb 3.2 oz) 09/10/2024 11:17 AM MAIL SERVICE COORDINATOR Height 165.1 cm (5' 5) 09/10/2024 11:17 AM MAIL SERVICE COORDINATOR Body Mass Index 33.32 09/10/2024 11:17 AM MAIL SERVICE COORDINATOR Plan of Treatment Not on file Insurance [facility] [id number] [facility] [id number] Care Teams Coverstitch Binder Relationship Specialty Start Date End Date No, Physician PCP - General 01/31/24 Fermín Reyes MD Medical Oncologist/Employment Educational Coord Hematology and Oncology 08/22/18
[2025-04-25 15:52] VITALS: BP 145/84; PULSE 98; RESP 18; TEMP 36.4; O2SAT 98
--- NOTE | 2025-04-25 18:42 | ED.GENADULT ---
HPI - General Adult General Chief complaint: Unspecified <MASOUD Heredia Last Filed: 04/25/25 18:50> Stated complaint: swelling L leg, R arm injury <MASOUD Heredia Last Filed: 04/25/25 18:50> Time Seen by Provider: 04/25/25 18:42 <MASOUD Heredia Last Filed: 04/25/25 18:50> Focused HPI: Patient is a 54 y/o female who presents to the ED with c/o BLE pain and swelling. Patient reports having intermittent swelling throughout her BLE for the past few weeks. States it has been worse throughout her L lower leg. States she has difficulty putting on shoes and has had to cut her socks to fit. States she has been keeping them elevated and this will occasionally help with the swelling. Reports pain throughout L lateral foot. Denies any distinct injury, but pain is worse with ambulation/bearing weight on L foot. Also reports pain to R shoulder. States she attempted to catch something that was falling 2 days ago with her R hand. [place] a pop in her R shoulder. Has had pain since then. Also reports she slammed her R hand in a car door yesterday. Denies hx of CHF, previous blood clots. Is not on any diuretics. Denies CP/SOB. GENERAL: Well-appearing, well-nourished, and in no acute distress. HEAD: Normocephalic, atraumatic. CHEST: Clear to auscultation. ?No respiratory distress. HEART: Regular rate and rhythm.? MSK: Mild diffuse swelling throughout BLE. TTP diffusely throughout L lower leg and particularly around L 5th metatarsal/lateral dorsal foot. Pedal pulses are intact. Tenderness to palpation over right anterior shoulder. Tenderness to palpation right dorsal hand in area 2nd through 3rd metacarpals. NEURO: ?Alert and oriented x3. Patient screened in triage and initial orders placed.? ?Additional care and disposition to be based upon?diagnostic testing and treatment. <MASOUD Heredia Last Filed: 04/25/25 18:50> Source: patient <MASOUD Heredia Last Filed: 04/25/25 18:50> Mode of arrival: ambulatory <Mira Mccoy PA-C - Last Filed: 04/25/25 18:50> Limitations: no limitations <Mira Mccoy PA-C - Last Filed: 04/25/25 18:50> History of Present Illness HPI narrative: Agrees the above HPI <Robert Apple MD - Last Filed: 04/26/25 19:05> Related Data Home medications: Home Medications ?Medication ?Instructions ?Recorded ?Confirmed ?Last Taken ?Type albuterol sulfate 90 mcg/actuation 1 inh inhalation Q4H 08/18/20 02/20/25 10/09/21 History aerosol inhaler (Proventil HFA) ascorbate calcium (vitamin C) 500 500 mg PO DAILY 08/18/20 02/20/25 10/09/21 History mg tablet biotin 5,000 mcg disintegrating 10,000 mcg PO DAILY 08/18/20 02/20/25 10/09/21 History tablet cholecalciferol (vitamin D3) 125 125 mcg PO DAILY 08/18/20 02/20/25 10/09/21 History mcg (5,000 unit) capsule ferrous sulfate 325 mg (65 mg 325 mg PO DAILY 08/18/20 02/20/25 10/09/21 History iron) tablet (Feosol) multivitamin (Daily Multi-Vitamin 1 tablet PO DAILY 08/18/20 02/20/25 10/09/21 History tablet) Elderberry 02/20/25 Unknown History <Mira Mccoy PA-C - Last Filed: 04/25/25 18:50> Allergies/adverse reactions: Allergies Allergy/AdvReac Type Severity Reaction Status Date / Time dexlansoprazole Allergy Severe Hives / Verified 04/25/25 19:34 Red Face pregabalin Allergy Severe Anaphylactic Verified 04/25/25 19:34 Shock wheat Allergy Severe GI ISSUES Verified 04/25/25 19:34 lactose Allergy Intermediate GI ISSUES Verified 04/25/25 19:34 topiramate Allergy Intermediate Rash Verified 04/25/25 19:34 cimetidine Allergy Mild HIVES Verified 04/25/25 19:34 Penicillins Allergy Mild HIVES, Verified 04/25/25 19:34 ITCHING ranitidine Allergy Mild HIVES Verified 04/25/25 19:34 tramadol Allergy Mild SWELLING Verified 04/25/25 19:34 LOWER EXTREMITIES. adhesive tape AdvReac Severe PAPER Verified 04/25/25 19:34 TAPE=SKIN IRRITATION TO SITE trimethobenzamide AdvReac Unknown Abdominal Verified 04/25/25 19:34 Pain <MASOUD Heredia Last Filed: 04/25/25 18:50> [facility] Past Medical History Medical History: Medical History History of COVID-19 Colon cancer screening Nuclear age-related cataract, both eyes Dry senile macular degeneration Sleep difficulties Anemia Anxiety Depression Diabetes Bulging disc Fractures toe Fibromyalgia Abnormal uterine bleeding GERD (gastroesophageal reflux disease) Ulcer Asthma Hyperlipidemia Hypertension Angina at rest <MASOUD Heredia Last Filed: 04/25/25 18:50> Surgical History Surgical History: Surgical History H/O dilation and curettage Hx of cholecystectomy <MASOUD Heredia Last Filed: 04/25/25 18:50> Family History Family History: Family History Grandparent Heart disease Diabetes mellitus Hypertension <MASOUD Heredia Last Filed: 04/25/25 18:50> Social History Social History: Social History Smoking status: Never smoker Alcohol intake: never Substance use: never Lack of Transportation: No Lack of Food: Never True Current Housing: I Have Housing Concerned About Future Housing: No Difficulty Paying Gas/Electric Bills: No Difficulty Paying for Meds: No Currently Unemployed: No Difficulty w/ Childcare or Family Care: No Gender identity (if verbalized by the patient): Female <MASOUD Heredia Last Filed: 04/25/25 18:50> Course Vital Signs Vital signs: Vital Signs Temperature 97.6 F 04/25/25 15:52 Pulse Rate 98 04/25/25 15:52 Respiratory Rate 18 04/25/25 15:52 Blood Pressure 145/84 H 04/25/25 15:52 Pulse Oximetry 98 04/25/25 15:52 Oxygen Delivery Room Air 04/25/25 15:52 Temperature 98 F 04/25/25 21:30 Pulse Rate 80 04/25/25 21:30 Respiratory Rate 20 04/25/25 21:30 Blood Pressure 136/86 04/25/25 21:30 Pulse Oximetry 98 04/25/25 21:30 Oxygen Delivery Room Air 04/25/25 15:52 <Mira Mccoy PA-C - Last Filed: 04/25/25 18:50> Vital Signs Temperature 97.6 F 04/25/25 15:52 Pulse Rate 98 04/25/25 15:52 Respiratory Rate 18 04/25/25 15:52 Blood Pressure 145/84 H 04/25/25 15:52 Pulse Oximetry 98 04/25/25 15:52 Oxygen Delivery Room Air 04/25/25 15:52 Temperature 98 F 04/25/25 21:30 Pulse Rate 80 04/25/25 21:30 Respiratory Rate 20 04/25/25 21:30 Blood Pressure 136/86 04/25/25 21:30 Pulse Oximetry 98 04/25/25 21:30 Oxygen Delivery Room Air 04/25/25 15:52 <Robert Apple MD - Last Filed: 04/26/25 19:05> Medical Decision Making MDM Narrative Medical decision making narrative: MSE by BOZENA in triage. <Mira Mccyo PA-C - Last Filed: 04/25/25 18:50> MSE by BOZENA in triage. Patient is afebrile and leukocytosis and hemoglobin of 13.2. Patient has a negative ultrasound, negative shoulder x-ray, negative foot x-ray negative hand x-ray. No acute abnormalities on her CMP. Patient was updated the results of the workup. Patient was encouraged close follow-up with her primary care physician. All questions concerns were addressed. <Robert Apple MD - Last Filed: 04/26/25 19:05> Differential Diagnosis Differential Diagnosis: Hand fracture, shoulder strain, CHF, DVT. Fluid overload <Robert Apple MD - Last Filed: 04/26/25 19:05> Vital Signs Vital Signs: Vital Signs Temperature 97.6 F 04/25/25 15:52 Pulse Rate 98 04/25/25 15:52 Respiratory Rate 18 04/25/25 15:52 Blood Pressure 145/84 H 04/25/25 15:52 Pulse Oximetry 98 04/25/25 15:52 Oxygen Delivery Room Air 04/25/25 15:52 Temperature 98 F 04/25/25 21:30 Pulse Rate 80 04/25/25 21:30 Respiratory Rate 20 04/25/25 21:30 Blood Pressure 136/86 04/25/25 21:30 Pulse Oximetry 98 04/25/25 21:30 Oxygen Delivery Room Air 04/25/25 15:52 <Mira Mccoy PA-C - Last Filed: 04/25/25 18:50> Vital Signs Temperature 97.6 F 04/25/25 15:52 Pulse Rate 98 04/25/25 15:52 Respiratory Rate 18 04/25/25 15:52 Blood Pressure 145/84 H 04/25/25 15:52 Pulse Oximetry 98 04/25/25 15:52 Oxygen Delivery Room Air 04/25/25 15:52 Temperature 98 F 04/25/25 21:30 Pulse Rate 80 04/25/25 21:30 Respiratory Rate 20 04/25/25 21:30 Blood Pressure 136/86 04/25/25 21:30 Pulse Oximetry 98 04/25/25 21:30 Oxygen Delivery Room Air 04/25/25 15:52 <Robert Apple MD - Last Filed: 04/26/25 19:05> Lab Data Lab results reviewed: Yes I reviewed the patient's lab results. <Robert Apple MD - Last Filed: 04/26/25 19:05> Result diagrams: 04/25/25 18:49 04/25/25 18:49 <Mira Mccoy PA-C - Last Filed: 04/25/25 18:50> Labs: Lab Results 04/25/25 Range/Units 18:49 WBC 8.4 (4.5-10.0) K/mm3 RBC 5.23 (4.2-5.4) M/mm3 Hgb 13.2 (12.0-15.0) g/dL Hct 42.4 (37.0-47.0) % MCV 81.1 (80-100) fl MCH 25.2 L (26-34) pg MCHC 31.1 L (32-36) g/dl RDW 14.2 (11.5-14.5) % Plt Count 253 (150-375) k/mm3 MPV 9.6 (7.4-10.4) fl Immature Gran % (Auto) 0.2 (0-0.5) % Neut % (Auto) 53.4 (45.5-73.1) % Lymph % (Auto) 31.0 (18.3-44.2) % [place] % (Auto) 10.1 H (2.6-8.5) % Eos % (Auto) 5.2 H (0-4.4) % Baso % (Auto) 0.1 L (0.2-1.2) % Lymph # (Auto) 2.62 (0.9-3.2) K/mm3 [place] # (Auto) 0.9 H (0.1-0.6) K/mm3 Eos # (Auto) 0.4 H (0-0.3) K/mm3 Baso # (Auto) 0.0 (0.0-0.1) K/mm3 Abs Immat Gran (auto) 0.02 (0.00-0.031) K/mm3 Absolute Neuts (auto) 4.5 (1.3-6.7) K/mm3 Absolute Nucleated RBC 0.000 (0.0-0.012) K/mm3 Nucleated RBC % 0.0 (0.0-0.2) % PT 14.1 (11.1-14.7) Seconds INR 1.1 APTT 26.9 (22.3-36.8) Seconds Sodium 140 (137-145) mmol/L Potassium 4.2 (3.4-5.0) mmol/L Chloride 108 H (98-107) mmol/L Carbon Dioxide 24 (22-30) mmol/L Anion Gap 8 (4-12) mmol/L BUN 16 (7-17) mg/dL Creatinine 0.89 (0.7-1.0) mg/dL Estim Creat Clear Calc 70 ml/min Estimated GFR > 60 (59 - ) Glucose 89 (65-110) mg/dL Calcium 9.6 (8.4-10.2) mg/dL Total Bilirubin 0.3 (0.2-1.3) mg/dL AST 33 (14-36) U/L ALT 28 (6-35) U/L Alkaline Phosphatase 73 (38-126) U/L NT-Pro-B Natriuret Pep < 20 (19.9-100) pg/mL Total Protein 7.7 (6.3-8.2) g/dL Albumin 4.5 (3.5-5.1) g/dL <Mira Mccoy PA-C - Last Filed: 04/25/25 18:50> Lab Results 04/25/25 Range/Units 18:49 WBC 8.4 (4.5-10.0) K/mm3 RBC 5.23 (4.2-5.4) M/mm3 Hgb 13.2 (12.0-15.0) g/dL Hct 42.4 (37.0-47.0) % MCV 81.1 (80-100) fl MCH 25.2 L (26-34) pg MCHC 31.1 L (32-36) g/dl RDW 14.2 (11.5-14.5) % Plt Count 253 (150-375) k/mm3 MPV 9.6 (7.4-10.4) fl Immature Gran % (Auto) 0.2 (0-0.5) % Neut % (Auto) 53.4 (45.5-73.1) % Lymph % (Auto) 31.0 (18.3-44.2) % [place] % (Auto) 10.1 H (2.6-8.5) % Eos % (Auto) 5.2 H (0-4.4) % Baso % (Auto) 0.1 L (0.2-1.2) % Lymph # (Auto) 2.62 (0.9-3.2) K/mm3 [place] # (Auto) 0.9 H (0.1-0.6) K/mm3 Eos # (Auto) 0.4 H (0-0.3) K/mm3 Baso # (Auto) 0.0 (0.0-0.1) K/mm3 Abs Immat Gran (auto) 0.02 (0.00-0.031) K/mm3 Absolute Neuts (auto) 4.5 (1.3-6.7) K/mm3 Absolute Nucleated RBC 0.000 (0.0-0.012) K/mm3 Nucleated RBC % 0.0 (0.0-0.2) % PT 14.1 (11.1-14.7) Seconds INR 1.1 APTT 26.9 (22.3-36.8) Seconds Sodium 140 (137-145) mmol/L Potassium 4.2 (3.4-5.0) mmol/L Chloride 108 H (98-107) mmol/L Carbon Dioxide 24 (22-30) mmol/L Anion Gap 8 (4-12) mmol/L BUN 16 (7-17) mg/dL Creatinine 0.89 (0.7-1.0) mg/dL Estim Creat Clear Calc 70 ml/min Estimated GFR > 60 (59 - ) Glucose 89 (65-110) mg/dL Calcium 9.6 (8.4-10.2) mg/dL Total Bilirubin 0.3 (0.2-1.3) mg/dL AST 33 (14-36) U/L ALT 28 (6-35) U/L Alkaline Phosphatase 73 (38-126) U/L NT-Pro-B Natriuret Pep < 20 (19.9-100) pg/mL Total Protein 7.7 (6.3-8.2) g/dL Albumin 4.5 (3.5-5.1) g/dL <Robert Apple MD - Last Filed: 04/26/25 19:05> Imaging Data Radiologist's impression: Impressions Hand X-Ray 04/25/25 19:43 IMPRESSION: No acute osseous finding in the right hand. Foot X-Ray 04/25/25 19:44 IMPRESSION: No acute osseous finding the left foot. Shoulder X-Ray 04/25/25 19:44 IMPRESSION: No acute osseous finding in the right shoulder. <Robert Apple MD - Last Filed: 04/26/25 19:05> Discharge Plan Discharge Clinical Impression: Leg edema, Acute shoulder pain <Mira Mccoy PA-C - Last Filed: 04/25/25 18:50> Patient Disposition: Home <Mira Mccoy PA-C - Last Filed: 04/25/25 18:50> Condition: Stable <Mira Mccoy PA-C - Last Filed: 04/25/25 18:50> Instructions: Antibiotic Form <MASOUD Heredia Last Filed: 04/25/25 18:50> Additional Instructions: Tylenol for pain control. Flexeril for muscle spasm. Sling for comfort for the right arm. Have close follow-up with your primary care physician for additional outpatient imaging of the shoulder. Follow low-sodium diet and drink plenty fluids to help with lower extremity edema. <MASOUD Heredia Last Filed: 04/25/25 18:50> Patient Language: Serbian <MASOUD Heredia Last Filed: 04/25/25 18:50> Prescriptions: New cyclobenzaprine 10 mg tablet 10 mg PO BID PRN (Reason: muscle spasm) Qty: 14 0RF No Action albuterol sulfate 90 mcg/actuation HFA aerosol inhaler 2 puff inhalation Q4-6H PRN (Reason: shortness of breath or wheezing) Qty: 8.5 0RF Elderberry cholecalciferol (vitamin D3) 125 mcg (5,000 unit) capsule 125 mcg PO DAILY ascorbate calcium (vitamin C) 500 mg tablet 500 mg PO DAILY biotin 5,000 mcg tablet,disintegrating 10,000 mcg PO DAILY ferrous sulfate [Feosol] 325 mg (65 mg iron) tablet 325 mg PO DAILY multivitamin [Daily Multi-Vitamin] Tablet 1 tablet PO DAILY albuterol sulfate [Proventil HFA] 90 mcg/actuation HFA aerosol inhaler 1 inh inhalation Q4H <Mira Mccoy PA-C - Last Filed: 04/25/25 18:50> Follow-up/Referrals: PHYSICIAN,BEAM DOFFER [Primary Care Provider] - <MASOUD Heredia Last Filed: 04/25/25 18:50>
[2025-04-25 18:59] LABS: Hematocrit 42.4 % (37.0-47.0); Hemoglobin 13.2 g/dL (12.0-15.0); Immature Granulocyte Percent A 0.2 % (0-0.5); Lymphocytes Absolute Auto 2.62 K/mm3 (0.9-3.2); Mean Corpuscular HGB Conc 31.1 g/dl (32-36); Mean Corpuscular Hemoglobin 25.2 pg (26-34); Mean Corpuscular Volume 81.1 fl (80-100); Nucleated Red Blood Cells Absolute Auto 0.000 K/mm3 (0.0-0.012); Nucleated Red Blood Cells Perc 0.0 % (0.0-0.2); Platelet Count Result 253 k/mm3 (150-375); Red Blood Count 5.23 M/mm3 (4.2-5.4); White Blood Count 8.4 K/mm3 (4.5-10.0)
[2025-04-25 19:14] LABS: Alanine Aminotransferase 28 U/L (6-35); Albumin Level 4.5 g/dL (3.5-5.1); Alkaline Phosphatase 73 U/L (38-126); Anion Gap 8 mmol/L (4-12); Aspartate Amino Transferase 33 U/L (14-36); Bilirubin,Total 0.3 mg/dL (0.2-1.3); Blood Urea Nitrogen 16 mg/dL (7-17); Calcium 9.6 mg/dL (8.4-10.2); Carbon Dioxide 24 mmol/L (22-30); Chloride 108 mmol/L (98-107); Estimated CRCL calculation 70 ml/min; Estimated Glomerular Filt Rate > 60; Glucose 89 mg/dL (65-110); Potassium 4.2 mmol/L (3.4-5.0); Sodium 140 mmol/L (137-145); Total Protein 7.7 g/dL (6.3-8.2)
[2025-04-25 19:16] LABS: INR 1.1; Prothrombin Time 14.1 Seconds (11.1-14.7)
[2025-04-25 19:17] LABS: Partial Thromboplastin Time 26.9 Seconds (22.3-36.8)
[2025-04-25 19:30] VITALS: BP 132/81; PULSE 78; RESP 20; TEMP 36.9; O2SAT 98
[2025-04-25 19:56] LABS: NT Pro B Type Natriuretic Pept < 20 pg/mL (19.9-100)
--- OUTSIDE RECORDS SUMMARY | 2025-04-25 20:35 | XMS_ITS | Clinical Summary ---
Author Organization [facility] Address [address] [place] [address] Care Team Providers Care Geological Sample Tester Name Role Phone Fermín Reyes MD Unavailable No, Physician Primary Care Provider [phone] Allergies Active Allergy Reactions Criticality Noted Date [...] times a day with meals Active vit C,C-Bd-kghbd-lorne tein-zeaxan 250-90-40-1 mg capsule Take by mouth [...] on file Legal Sex Female 10:50 AM SEWER HEAD Gender Identity Not on file Sexual Orientation Not on file Obstetrics History Last Filed Vital Signs Vital Sign Reading Time Taken Comments Blood Pressure 140/87 09/10/2024 11:17 AM SEWER HEAD Pulse 101 09/10/2024 11:17 AM SEWER HEAD Temperature 36.3 C (97.4 F) 09/10/2024 11:17 AM SEWER HEAD Respiratory Rate 21 09/10/2024 11:17 AM SEWER HEAD Oxygen Saturation - - Inhaled Oxygen Concentration - - Weight 90.8 kg (200 lb 3.2 oz) 09/10/2024 11:17 AM SEWER HEAD Height 165.1 cm (5' 5) 09/10/2024 11:17 AM SEWER HEAD Body Mass Index 33.32 09/10/2024 11:17 AM SEWER HEAD Plan of Treatment Health Maintenance Due Date [...] patient's age to complete this topic Insurance [facility] [email or web address] [id number] Care Teams Geological Sample Tester Relationship Specialty Start Date End Date No, Physician PCP - General 01/31/24 Fermín Reyes MD Medical Oncologist/[place] Worker Hematology and Oncology 08/22/18
--- OUTSIDE RECORDS SUMMARY | 2025-04-25 20:35 | XMS_ITS | Referral Summary ---
Author Organization [facility] Address [address] [place] [address] Care Team Providers Care Process Improvement Engineer Name Role Phone Fermín Reyes MD Unavailable [phone] No, Physician Primary Care Provider Allergies [...] times a day with meals Active vit C,Y-Vp-xjrla-lorne tein-zeaxan 250-90-40-1 mg capsule Take by mouth [...] on file Legal Sex Female 10:50 AM TIME MOTION ANALYST Gender Identity Not on file Sexual Orientation Not on file Last Filed Vital Signs Vital Sign Reading Time Taken Comments Blood Pressure 140/87 09/10/2024 11:17 AM TIME MOTION ANALYST Pulse 101 09/10/2024 11:17 AM TIME MOTION ANALYST Temperature 36.3 C (97.4 F) 09/10/2024 11:17 AM TIME MOTION ANALYST Respiratory Rate 21 09/10/2024 11:17 AM TIME MOTION ANALYST Oxygen Saturation - - Inhaled Oxygen Concentration - - Weight 90.8 kg (200 lb 3.2 oz) 09/10/2024 11:17 AM TIME MOTION ANALYST Height 165.1 cm (5' 5) 09/10/2024 11:17 AM TIME MOTION ANALYST Body Mass Index 33.32 09/10/2024 11:17 AM TIME MOTION ANALYST Plan of Treatment Not on file Insurance [facility] [id number] [facility] [id number] Care Teams Process Improvement Engineer Relationship Specialty Start Date End Date No, Physician PCP - General 01/31/24 Fermín Reyes MD Medical Oncologist/Dental Practice Manager Hematology and Oncology 08/22/18
--- OUTSIDE RECORDS SUMMARY | 2025-04-25 20:35 | XMS_ITS | Clinical Summary ---
Author Organization [facility] Address [address] [place] [address] Care Team Providers Care Computer Equipment Repairer Name Role Phone Lou Cruz Primary Care Provider [phone] Allergies Active Allergy Reactions Criticality Noted Date [...] Comments Blood Pressure 142/79 11/19/2019 3:58 PM DIRECTOR TELEMETRY Pulse 71 11/19/2019 3:58 PM DIRECTOR TELEMETRY Temperature 36.8 C (98.3 F) 11/19/2019 3:58 PM DIRECTOR TELEMETRY Respiratory Rate - - Oxygen Saturation 98% 11/19/2019 3:58 PM DIRECTOR TELEMETRY Inhaled Oxygen Concentration - - Weight 96.1 kg (211 lb 12.8 oz) 11/19/2019 3:58 PM DIRECTOR TELEMETRY Height 165.1 cm (5' 5) 11/19/2019 3:58 PM DIRECTOR TELEMETRY Body Mass Index 35.25 11/19/2019 3:58 PM DIRECTOR TELEMETRY Plan of Treatment Health Maintenance Due Date [...] 2022 INFLUENZA VACCINE (#1) 2025 Care Teams Computer Equipment Repairer Relationship Specialty Start Date End Date Lou Cruz ANP [address] [id number] PCP - General Nurse Practitioner Adult Health 07/12/19
--- OUTSIDE RECORDS SUMMARY | 2025-04-25 20:35 | XMS_ITS | Clinical Summary ---
Author Organization [facility] Address [address] [place] [address] Care Team Providers Care Bodywork Therapist Name Role Phone Anthony Lou RUFINA Primary Care Provider + Source Comments [facility],non-owned Affiliates and Associated Physician Practices is amultiple site organization consisting of ambulatory clinics and hospital sitesin [place], [place], [place] and [place]. This disclosure is being madepursuant to the Care Everywhere program and may not contain all information available regarding this patient. Last updated 18.[facility] Allergies Active Allergy Reactions Criticality Noted Date [...] on file Legal Sex Female 7:17 PM TANGIBLE PERSONAL PROPERTY APPRAISER Gender Identity Not on file Sexual Orientation [...] patient's age to complete this topic Insurance [employer] Member Subscriber Plan / Payer ( fective 2021-Present) Name:Marcellus Aguila Member ID:[id number] Relation to Subscriber:Self Name:Ayla Brendenmalinda Subscriber ID:[id number] Payer ID:Not on file Type:AIRSIS Address: [facility] [address] [place] [phone] [employer] Care Teams Bodywork Therapist Relationship Specialty Start Date End Date Lou Cruz APRN-CNP [address] [employer] [phone] PCP - General 12/15/22
[2025-04-25] MEDS: CYCLOBENZAPRINE HCL 10 MG TABLET PO (21:13)
[2025-04-25 21:30] VITALS: BP 136/86; PULSE 80; RESP 20; TEMP 36.6; O2SAT 98
== END 2025-04-25 21:44 | disposition home or self-care (01) ==
PROVIDERS: Physician Assistant; Emergency Provider Emergency Medicine
DX: R60.0 Localized edema (principal); S49.91XA Unspecified injury of right shoulder and upper arm, initial encounter; I10 Essential (primary) hypertension; E11.9 Type 2 diabetes mellitus without complications; E78.5 Hyperlipidemia, unspecified; J45.909 Unspecified asthma, uncomplicated; H35.3190 Nonexudative age-related macular degeneration, unspecified eye, stage unspecified; H25.13 Age-related nuclear cataract, bilateral; M79.7 Fibromyalgia; K21.9 Gastro-esophageal reflux disease without esophagitis; Z86.16 Personal history of COVID-19; Z90.49 Acquired absence of other specified parts of digestive tract; X50.9XXA Other and unspecified overexertion or strenuous movements or postures, initial encounter
CPT/HCPCS: 36415; 73030; 73130; 73630; 80053; 83880; 85025; 85610; 85730; 93970; 99284; A4565; A9270

== ENCOUNTER 2025-05-28 17:27 | Emergency (ER) | payer OTHER, SELFPAY ==
--- NOTE | 2025-05-28 17:31 | ED.URI ---
HPI - URI/Sore Throat General Chief Complaint: Upper Respiratory Infection Stated Complaint: SOB/DRY THROAT/HEADACHE/EARSLOSING VOICE Time Seen by Provider: 05/28/25 17:31 Source: patient Mode of arrival: ambulatory Limitations: no limitations History of Present Illness HPI Narrative: Marcellus is a 54 year old female patient presenting to the clinic today with c/o SOB, headache, dry throat, productive cough, ear pain, and losing her voice that started 3 days ago. She reports no known fevers, chills, or body aches. States she is having some chest heaviness. Rates pain 04/17 currently. Has taken Tylenol and Excedrin for her headache. Related Data Home Medications ?Medication ?Instructions ?Recorded ?Confirmed ?Last Taken ?Type albuterol sulfate 90 mcg/actuation 1 inh inhalation Q4H 08/18/20 05/28/25 10/09/21 History aerosol inhaler (Proventil HFA) ascorbate calcium (vitamin C) 500 500 mg PO DAILY 08/18/20 05/28/25 10/09/21 History mg tablet biotin 5,000 mcg disintegrating 10,000 mcg PO DAILY 08/18/20 05/28/25 10/09/21 History tablet cholecalciferol (vitamin D3) 125 125 mcg PO DAILY 08/18/20 05/28/25 10/09/21 History mcg (5,000 unit) capsule ferrous sulfate 325 mg (65 mg 325 mg PO DAILY 08/18/20 05/28/25 10/09/21 History iron) tablet (Feosol) multivitamin (Daily Multi-Vitamin 1 tablet PO DAILY 08/18/20 05/28/25 10/09/21 History tablet) Elderberry See Rx Instructions BYMOUTH DAILY 02/20/25 05/28/25 Unknown History Allergies Allergy/AdvReac Type Severity Reaction Status Date / Time dexlansoprazole Allergy Severe Hives / Verified 05/28/25 17:34 Red Face pregabalin Allergy Severe Anaphylactic Verified 05/28/25 17:34 Shock wheat Allergy Severe GI ISSUES Verified 05/28/25 17:34 lactose Allergy Intermediate GI ISSUES Verified 05/28/25 17:34 topiramate Allergy Intermediate Rash Verified 05/28/25 17:34 cimetidine Allergy Mild HIVES Verified 05/28/25 17:34 Penicillins Allergy Mild HIVES, Verified 05/28/25 17:34 ITCHING ranitidine Allergy Mild HIVES Verified 05/28/25 17:34 tramadol Allergy Mild SWELLING Verified 05/28/25 17:34 LOWER EXTREMITIES. adhesive tape AdvReac Severe PAPER Verified 05/28/25 17:34 TAPE=SKIN IRRITATION TO SITE trimethobenzamide AdvReac Unknown Abdominal Verified 05/28/25 17:34 Pain Review of Systems Review of Systems: Pertinent positives per HPI. Patient denies any fever, chills, rash, visual changes, dizziness, chest pain, palpitations, nausea, vomiting, diarrhea, constipation, abdominal pain, or any urinary issues. [facility] Past Medical History Medical History History of COVID-19 Colon cancer screening Nuclear age-related cataract, both eyes Dry senile macular degeneration Sleep difficulties Anemia Anxiety Depression Diabetes Bulging disc Fractures toe Fibromyalgia Abnormal uterine bleeding GERD (gastroesophageal reflux disease) Ulcer Asthma Hyperlipidemia Hypertension Angina at rest Surgical History Surgical History H/O dilation and curettage Hx of cholecystectomy Family History Family History Grandparent Heart disease Diabetes mellitus Hypertension Social History Social History Smoking status: Never smoker Alcohol intake: never Substance use: never Lack of Transportation: No Lack of Food: Never True Current Housing: I Have Housing Concerned About Future Housing: No Difficulty Paying Gas/Electric Bills: No Difficulty Paying for Meds: No Currently Unemployed: No Difficulty w/ Childcare or Family Care: No Gender identity (if verbalized by the patient): Female Comments At the time of my signature, I reviewed and agree with the nursing past medical, surgical, social, and family history. There is no relevant family history pertinent to the patient complaint. Exam Narrative: General: Well-developed, morbidly obese, in no apparent distress Head: Normocephalic, atraumatic Eyes: Pupils equally round and reactive to light bilaterally, EOM intact, sclera and conjunctive clear, no discharge, lids normal Ears: TMs intact and clear, ear canals clear, no drainage, grossly hearing normal. Nose: Nares patent, clear nasal discharge, mild inflammation, no sinus tenderness. Mouth: Oral pharynx red without lesions or masses, good dentition, MMM. Postnasal drip Neck: Supple, trachea midline, no enlargement of anterior or posterior cervical nodes, no thyroid masses or goiter palpable. Cardio: Regular rate and rhythm, s1 and s2 normal, no murmur appreciated. Resp: Clear to auscultation bilaterally, no rhonchi, rales, wheezing or rubs Course Course Emergency Course: Portions of this record may have been created with voice recognition software. Level of Care: Express Care Visit Vital Signs Vital signs: Vital Signs Temperature 36.7 C 05/28/25 17:37 Pulse Rate 84 05/28/25 17:37 Respiratory Rate 16 05/28/25 17:37 Blood Pressure 124/87 05/28/25 17:37 Pulse Oximetry 99 05/28/25 17:37 Temperature 36.7 C 05/28/25 17:37 Pulse Rate 84 05/28/25 17:37 Respiratory Rate 16 05/28/25 17:37 Blood Pressure 124/87 05/28/25 17:37 Pulse Oximetry 99 05/28/25 17:37 Vital signs reviewed MDM - URI/Sore Throat MDM Narrative Medical decision making narrative: At the time of visit patient is resting comfortably on the exam table. Patient appears to be nontoxic. C/o SOB, headache, dry throat, productive cough, ear pain, and losing her voice that started 3 days ago. She reports no known fevers, chills, or body aches. States she is having some chest heaviness. Rates pain 7/10 currently. Has taken Tylenol and Excedrin for her headache. Vital signs stable. On exam patient has clear nasal discharge with postnasal drip. No sign of bacterial infection. Lung sounds are clear. EKG and COVID, flu, and strep test were ordered. EKG: EKG shows normal sinus rhythm with heart rate of 89 beats per minute without any ST elevation or depression. Does show a nonspecific T-wave abnormality. No comparison EKG available Labs: COVID, influenza, and strep test were performed. Influenza and strep were negative. COVID testing was positive. Plan: Patient is positive for COVID. Supportive measures were discussed with the patient and they voiced understanding discharge instructions and agrees to treatment plan. Return precautions reviewed Differential Diagnosis Differential diagnosis: Likely upper respiratory infection, otitis media, sinusitis, viral infection, bronchitis, influenza, pharyngitis and other (COVID) Lab Data Labs: Lab Results 05/28/25 Range/Units 17:57 POC Influenza A Ag Negative (Negative) POC Influenza B Ag Negative (Negative) POC SARS CoV-2 Ag Positive (Negative) POC Grp A Strep Screen Negative (Negative) ECG Data EKG #1: Attestation: I personally reviewed and interpreted this ECG as follows: ECG completion date: 05/28/25 ECG completion time: 17:57 Prior ECG tracings: not available for review Interpretation: EKG shows normal sinus rhythm with heart rate of 89 beats per minute. Has a nonspecific T-wave abnormality. WV interval is 125 milliseconds, QRS durations 88 milliseconds, QT-QTC 317/364 P-R-T axis is 59 9 20 Discharge Plan Discharge Clinical Impression: COVID-19 Patient Disposition: Home Condition: Stable Instructions: Antibiotic Form, How to Recover from COVID-19 at Home (ED) Additional Instructions: EKG is reassuring in the clinic today COVID testing was positive in the clinic today. Influenza and strep test were negative. We will send strep for culture. May take Coricidin HBP for cold/flu symptoms Increase fluids and stay well hydrated May take Tylenol or motrin as directed on bottle for pain/fever May use Flonase 1 spray in each nare daily May take OTC antihistamines such as Zyrtec or Claritin daily as directed on bottle May apply Vicks vapor rub to chest to open sinuses Sinus rinses for congestion Cepacol spray, cough drops, throat lozenges, warm tea with honey/lemon, gargle salt water to soothe throat BRAT diet for diarrhea Clear liquids x 24 hours then advance as tolerated for nausea/vomiting Go to the ED if you develop a worsening in your condition- high fever not controlled by Tylenol or Motrin, dehydration, weakness, lethargy, shortness of breath, or chest pain. Follow up with your PCP in 3-5 days if symptoms persist. Patient Language: Mohawk Prescriptions: No Action albuterol sulfate 90 mcg/actuation HFA aerosol inhaler 2 puff inhalation Q4-6H PRN (Reason: shortness of breath or wheezing) Qty: 8.5 0RF Elderberry See Rx Instructions BYMOUTH DAILY Rx Instructions: 1 orally daily; cholecalciferol (vitamin D3) 125 mcg (5,000 unit) capsule 125 mcg PO DAILY ascorbate calcium (vitamin C) 500 mg tablet 500 mg PO DAILY biotin 5,000 mcg tablet,disintegrating 10,000 mcg PO DAILY ferrous sulfate [Feosol] 325 mg (65 mg iron) tablet 325 mg PO DAILY multivitamin [Daily Multi-Vitamin] Tablet 1 tablet PO DAILY albuterol sulfate [Proventil HFA] 90 mcg/actuation HFA aerosol inhaler 1 inh inhalation Q4H Follow-up/Referrals: Lou Cruz APRN [Primary Care Provider, Family Practice] Stand Alone Forms: Work/School Release IP Time of Disposition: 18:08 Quality NIHSS Nursing Documentation ED NIHSS nursing documentation: reviewed/agree
[2025-05-28 17:37] VITALS: BP 124/87; PULSE 84; RESP 16; TEMP 36.7; O2SAT 99
--- NOTE | 2025-05-28 17:49 | ECG_ITS ---
Test Date: 2025-05-28 17:57:16 Measurements Intervals [place] Rate: 89 P: 59 WV: 125 QRS: 9 QRSD: 88 T: 20 QT: 317 QTc: 388 Interpretive Statements SINUS RHYTHM MINIMAL Q WAVES- HIGH LATERAL LEADS NONSPECIFIC T-WAVE ABNORMALITY- INFERIOR LEADS BASELINE ARTIFACT- I, II, III, AVR, AVL, AVF, V1-V6 BORDERLINE ECG No previous ECG available for comparison Electronically Signed On 05-28-2025 19:05:50 CDT by Carl Madera D.O.
[2025-05-28 17:59] LABS: EDCOVIDSCREEN Positive (Negative); EDINFLUASCREEN Negative (Negative); EDINFLUBSCREEN Negative (Negative); EDSTREPNEGPOS1 Negative (Negative)
== END 2025-05-28 18:12 | disposition home or self-care (01) ==
PROVIDERS: Emergency Provider Nurse Practitioner Family; PCP Nurse Practitioner Adult Health
DX: U07.1 COVID-19 (principal); E11.9 Type 2 diabetes mellitus without complications; I10 Essential (primary) hypertension; M79.7 Fibromyalgia; K21.9 Gastro-esophageal reflux disease without esophagitis; E78.5 Hyperlipidemia, unspecified; I20.9 Angina pectoris, unspecified; J45.909 Unspecified asthma, uncomplicated
CPT/HCPCS: 87081; 87426; 87804; 87880; 93005; 99213; G0463

== ENCOUNTER 2025-06-04 17:28 | Emergency (ER) | payer OTHER, SELFPAY ==
--- NOTE | ~2025-06-04 | XR_ITS ---
EXAMINATION: XR chest 2V, 06/04/2025 17:54 CDT HISTORY: cough recent covid + COMPARISON: No comparisons available. Technique: 2 views obtained. Findings: The lungs are clear, no effusion. No pneumothorax. Heart is normal size. Mediastinal and hilar contours are within normal limits. Bony thorax no acute abnormality. Impression: No acute cardiopulmonary abnormality. Reviewed, dictated and finalized at location A. Impression: No acute cardiopulmonary abnormality.
[2025-06-04 17:44] VITALS: BP 129/84; PULSE 88; RESP 16; TEMP 36.5; O2SAT 100
--- NOTE | 2025-06-04 18:13 | ED.GENADULT ---
HPI - General Adult General Chief complaint: Upper Respiratory Infection Stated complaint: COUGH/SOB/+ COVID Source: patient Mode of arrival: ambulatory Limitations: no limitations History of Present Illness HPI narrative: Pt is a 54 y/o female presenting with c/o cough, SOB, bilateral otalgia following a positive COVID dx last week. No new sx. No worsening sx. Voices concern for still having COVID and sx remaining. No additional complaints. Related Data Home Medications ?Medication ?Instructions ?Recorded ?Confirmed ?Last Taken ?Type albuterol sulfate 90 mcg/actuation 1 inh inhalation Q4H 08/18/20 05/28/25 10/09/21 History aerosol inhaler (Proventil HFA) ascorbate calcium (vitamin C) 500 500 mg PO DAILY 08/18/20 05/28/25 10/09/21 History mg tablet biotin 5,000 mcg disintegrating 10,000 mcg PO DAILY 08/18/20 05/28/25 10/09/21 History tablet cholecalciferol (vitamin D3) 125 125 mcg PO DAILY 08/18/20 05/28/25 10/09/21 History mcg (5,000 unit) capsule ferrous sulfate 325 mg (65 mg 325 mg PO DAILY 08/18/20 05/28/25 10/09/21 History iron) tablet (Feosol) multivitamin (Daily Multi-Vitamin 1 tablet PO DAILY 08/18/20 05/28/25 10/09/21 History tablet) Elderberry See Rx Instructions BYMOUTH DAILY 02/20/25 05/28/25 Unknown History Allergies Allergy/AdvReac Type Severity Reaction Status Date / Time dexlansoprazole Allergy Severe Hives / Verified 06/04/25 17:38 Red Face pregabalin Allergy Severe Anaphylactic Verified 06/04/25 17:38 Shock wheat Allergy Severe GI ISSUES Verified 06/04/25 17:38 lactose Allergy Intermediate GI ISSUES Verified 06/04/25 17:38 topiramate Allergy Intermediate Rash Verified 06/04/25 17:38 cimetidine Allergy Mild HIVES Verified 06/04/25 17:38 Penicillins Allergy Mild HIVES, Verified 06/04/25 17:38 ITCHING ranitidine Allergy Mild HIVES Verified 06/04/25 17:38 tramadol Allergy Mild SWELLING Verified 06/04/25 17:38 LOWER EXTREMITIES. adhesive tape AdvReac Severe PAPER Verified 06/04/25 17:38 TAPE=SKIN IRRITATION TO SITE trimethobenzamide AdvReac Unknown Abdominal Verified 06/04/25 17:38 Pain Review of Systems Review of Systems: CONSTITUTIONAL: Denies body aches, fever, chills, or sweats. EYES: Denies visual changes, redness, or discharge. ENT: Denies rhinorrhea, congestion, sore throat CARDIOVASCULAR: Denies chest pain, palpitations, or edema. GASTROINTESTINAL: Denies abdominal pain, nausea, vomiting, or diarrhea. GENITOURINARY: Denies dysuria or hematuria. SKIN: Denies rash, itching, or wounds. MUSCULOSKELETAL: Denies back pain, joint pain, or myalgia. NEUROLOGIC: Denies headache, numbness, tingling, or weakness. PSYCH: Denies depression or anxiety. All systems reviewed & are unremarkable except as noted in HPI and below PMFSH Past Medical History Medical History History of COVID-19 Colon cancer screening Nuclear age-related cataract, both eyes Dry senile macular degeneration Sleep difficulties Anemia Anxiety Depression Diabetes Bulging disc Fractures toe Fibromyalgia Abnormal uterine bleeding GERD (gastroesophageal reflux disease) Ulcer Asthma Hyperlipidemia Hypertension Angina at rest Surgical History Surgical History H/O dilation and curettage Hx of cholecystectomy Family History Family History Grandparent Heart disease Diabetes mellitus Hypertension Social History Social History Smoking status: Never smoker Alcohol intake: never Substance use: never Lack of Transportation: No Lack of Food: Never True Current Housing: I Have Housing Concerned About Future Housing: No Difficulty Paying Gas/Electric Bills: No Difficulty Paying for Meds: No Currently Unemployed: No Difficulty w/ Childcare or Family Care: No Gender identity (if verbalized by the patient): Female Exam Narrative: GENERAL: Well-appearing, well-nourished, and in no acute distress. HEAD: Normocephalic, atraumatic. EYES: EOMI. No redness or drainage. Conjunctivae normal. ENT: Mucous membranes pink and moist. Nares clear. No rhinorrhea. TMs normal bilaterally. Throat normal. Uvula midline. NECK: Normal AROM. Supple. No lymphadenopathy. CHEST: No respiratory distress. Clear to auscultation. HEART: Regular rate and rhythm. No murmur appreciated. Normal peripheral pulses. ABDOMEN: Soft, nontender, nondistended, normal active bowel sounds. MUSCULOSKELETAL: No bony tenderness. EXTREMITIES: Normal range of motion. No edema. SKIN: Warm, dry, no rash. Capillary refill normal. Normal skin turgor. NEURO: No focal deficits. Alert and oriented x3. Gait steady. PSYCH: Normal affect. No signs of depression or anxiety. Course Course Level of Care: Express Care Visit Vital Signs Vital signs: Vital Signs Temperature 97.7 F 06/04/25 17:44 Pulse Rate 88 06/04/25 17:44 Respiratory Rate 16 06/04/25 17:44 Blood Pressure 129/84 06/04/25 17:44 Pulse Oximetry 100 06/04/25 17:44 Temperature 97.7 F 06/04/25 17:44 Pulse Rate 88 06/04/25 17:44 Respiratory Rate 16 06/04/25 17:44 Blood Pressure 129/84 06/04/25 17:44 Pulse Oximetry 100 06/04/25 17:44 Medical Decision Making Vital Signs Vital Signs: Vital Signs Temperature 97.7 F 06/04/25 17:44 Pulse Rate 88 06/04/25 17:44 Respiratory Rate 16 06/04/25 17:44 Blood Pressure 129/84 06/04/25 17:44 Pulse Oximetry 100 06/04/25 17:44 Temperature 97.7 F 06/04/25 17:44 Pulse Rate 88 06/04/25 17:44 Respiratory Rate 16 06/04/25 17:44 Blood Pressure 129/84 06/04/25 17:44 Pulse Oximetry 100 06/04/25 17:44 Imaging Data Attestation: I personally reviewed and interpreted this imaging study as follows: My impression: NAD Discharge Plan Discharge Clinical Impression: Otalgia of both ears Cough Qualifiers: Cough type: acute Qualified Code(s): R05.1 - Acute cough Patient Disposition: Home Condition: Stable Instructions: Antibiotic Form, COVID-19 (Coronavirus Disease 2019) (ED) Patient Language: Serbian Prescriptions: New prednisone 20 mg tablet 60 mg PO DAILY Qty: 15 0RF No Action albuterol sulfate 90 mcg/actuation HFA aerosol inhaler 2 puff inhalation Q4-6H PRN (Reason: shortness of breath or wheezing) Qty: 8.5 0RF Elderberry See Rx Instructions BYMOUTH DAILY Rx Instructions: 1 orally daily; cholecalciferol (vitamin D3) 125 mcg (5,000 unit) capsule 125 mcg PO DAILY ascorbate calcium (vitamin C) 500 mg tablet 500 mg PO DAILY biotin 5,000 mcg tablet,disintegrating 10,000 mcg PO DAILY ferrous sulfate [Feosol] 325 mg (65 mg iron) tablet 325 mg PO DAILY multivitamin [Daily Multi-Vitamin] Tablet 1 tablet PO DAILY albuterol sulfate [Proventil HFA] 90 mcg/actuation HFA aerosol inhaler 1 inh inhalation Q4H Follow-up/Referrals: Lou Cruz APRN [Primary Care Provider, Family Practice] - 06/05/25 Stand Alone Forms: Work/School Release IP Time of Disposition: 18:24
== END 2025-06-04 18:26 | disposition home or self-care (01) ==
PROVIDERS: Emergency Provider Registered Nurse; PCP Nurse Practitioner Adult Health
DX: H92.03 Otalgia, bilateral (principal); R05.1 Acute cough; E11.9 Type 2 diabetes mellitus without complications; I10 Essential (primary) hypertension; E78.5 Hyperlipidemia, unspecified; Z79.899 Other long term (current) drug therapy
CPT/HCPCS: 71046; 99213; G0463

== ENCOUNTER 2025-08-20 10:29 | Emergency (ER) | payer OTHER, SELFPAY ==
--- NOTE | 2025-08-20 10:38 | ED.GENADULT ---
HPI - General Adult General Chief complaint: Upper Respiratory Infection Stated complaint: Sore Throat/Cough Source: patient Mode of arrival: ambulatory Limitations: no limitations History of Present Illness HPI narrative: Pt is a 54 y/o female presenting with c/o sore throat. Reports dry, scratchy throat began Monday evening. States additional sx followed and include voice hoarseness, rhinorrhea, bilateral otalgia, cough, congestion. 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 No know direct exposure to COVID, FLU, STREP, PNA however, she does work at [employer]. No additional complaints. Related Data Home Medications ?Medication ?Instructions ?Recorded ?Confirmed ?Last Taken ?Type albuterol sulfate 90 mcg/actuation 1 inh inhalation Q4H 08/18/20 05/28/25 10/09/21 History aerosol inhaler (Proventil HFA) ascorbate calcium (vitamin C) 500 500 mg PO DAILY 08/18/20 05/28/25 10/09/21 History mg tablet biotin 5,000 mcg disintegrating 10,000 mcg PO DAILY 08/18/20 05/28/25 10/09/21 History tablet cholecalciferol (vitamin D3) 125 125 mcg PO DAILY 08/18/20 05/28/25 10/09/21 History mcg (5,000 unit) capsule ferrous sulfate 325 mg (65 mg 325 mg PO DAILY 08/18/20 05/28/25 10/09/21 History iron) tablet (Feosol) multivitamin (Daily Multi-Vitamin 1 tablet PO DAILY 08/18/20 05/28/25 10/09/21 History tablet) Elderberry See Rx Instructions BYMOUTH DAILY 02/20/25 05/28/25 Unknown History Allergies Allergy/AdvReac Type Severity Reaction Status Date / Time dexlansoprazole Allergy Severe Hives / Verified 08/20/25 10:38 Red Face pregabalin Allergy Severe Anaphylactic Verified 08/20/25 10:38 Shock wheat Allergy Severe GI ISSUES Verified 08/20/25 10:38 lactose Allergy Intermediate GI ISSUES Verified 08/20/25 10:38 topiramate Allergy Intermediate Rash Verified 08/20/25 10:38 cimetidine Allergy Mild HIVES Verified 08/20/25 10:38 Penicillins Allergy Mild HIVES, Verified 08/20/25 10:38 ITCHING ranitidine Allergy Mild HIVES Verified 08/20/25 10:38 tramadol Allergy Mild SWELLING Verified 08/20/25 10:38 LOWER EXTREMITIES. adhesive tape AdvReac Severe PAPER Verified 08/20/25 10:38 TAPE=SKIN IRRITATION TO SITE trimethobenzamide AdvReac Unknown Abdominal Verified 08/20/25 10:38 Pain Review of Systems Review of Systems: CONSTITUTIONAL: Denies body aches, fever, chills, or sweats. EYES: Denies visual changes, redness, or discharge. ENT: reports rhinorrhea, congestion, sore throat, otalgia, voice hoarseness. CARDIOVASCULAR: Denies chest pain, palpitations, or edema. RESPIRATORY: reports cough denies dyspnea. GASTROINTESTINAL: Denies abdominal pain, nausea, vomiting, or diarrhea. GENITOURINARY: Denies dysuria or hematuria. SKIN: Denies rash, itching, or wounds. MUSCULOSKELETAL: Denies back pain, joint pain, or myalgia. NEUROLOGIC: Denies headache, numbness, tingling, or weakness. PSYCH: Denies depression or anxiety. All systems reviewed & are unremarkable except as noted in HPI and below PMFSH Past Medical History Medical History History of COVID-19 Colon cancer screening Nuclear age-related cataract, both eyes Dry senile macular degeneration Sleep difficulties Anemia Anxiety Depression Diabetes Bulging disc Fractures toe Fibromyalgia Abnormal uterine bleeding GERD (gastroesophageal reflux disease) Ulcer Asthma Hyperlipidemia Hypertension Angina at rest Surgical History Surgical History H/O dilation and curettage Hx of cholecystectomy Family History Family History Grandparent Heart disease Diabetes mellitus Hypertension Social History Social History Alcohol intake: never Substance use: never Lack of Transportation: No Lack of Food: Never True Current Housing: I Have Housing Concerned About Future Housing: No Difficulty Paying Gas/Electric Bills: No Difficulty Paying for Meds: No Currently Unemployed: No Difficulty w/ Childcare or Family Care: No Gender identity (if verbalized by the patient): Female Exam Narrative: GENERAL: Well-appearing, well-nourished, obese, no acute distress. HEAD: Normocephalic, atraumatic. EYES: EOMI. No redness or drainage. Conjunctivae normal. ENT: Mucous membranes pink and moist. Nares clear. No rhinorrhea. voice is hoarse. TMs normal bilaterally. There is mild Posterior pharyngeal erythema. Tonsils are 3+ bilat without exudate, lesions. Throat normal. Uvula midline. No mastoid tenderness. No facial swelling/erythema. NECK: Normal AROM. Supple. CHEST: No respiratory distress. expiratory wheezing noted throughout all lung griffiths. HEART: Regular rate and rhythm. No murmur appreciated. Normal peripheral pulses. SKIN: Warm, dry, no rash. Capillary refill normal. Normal skin turgor. NEURO: No focal deficits. Alert and oriented x3. Gait steady. PSYCH: Normal affect. No signs of depression or anxiety. Course Course Emergency Course: Discussed elevated blood pressure readings with patient and advised daily BP monitoring and f/u with PCP if persisting. Denies needing refill on albuterol inhaler--aware she should start taking prednisone tomorrow. Has appt to establish PCP in October. Strict go to ER precautions discussed at length Level of Care: Express Care Visit Vital Signs Vital signs: Vital Signs Temperature 98 F 08/20/25 10:42 Pulse Rate 109 H 08/20/25 10:42 Respiratory Rate 16 08/20/25 10:42 Blood Pressure 151/90 H 08/20/25 10:42 Pulse Oximetry 98 08/20/25 10:42 Temperature 98 F 08/20/25 10:42 Pulse Rate 109 H 08/20/25 10:42 Respiratory Rate 16 08/20/25 10:42 Blood Pressure 151/90 H 08/20/25 10:42 Pulse Oximetry 98 08/20/25 10:42 Medical Decision Making Vital Signs Vital Signs: Vital Signs Temperature 98 F 08/20/25 10:42 Pulse Rate 109 H 08/20/25 10:42 Respiratory Rate 16 08/20/25 10:42 Blood Pressure 151/90 H 08/20/25 10:42 Pulse Oximetry 98 08/20/25 10:42 Temperature 98 F 08/20/25 10:42 Pulse Rate 109 H 08/20/25 10:42 Respiratory Rate 16 08/20/25 10:42 Blood Pressure 151/90 H 08/20/25 10:42 Pulse Oximetry 98 08/20/25 10:42 Lab Data Lab results reviewed: Yes I reviewed the patient's lab results. Discharge Plan Discharge Clinical Impression: Asthma exacerbation, Wheezing, Upper respiratory infection with cough and congestion, Otalgia of both ears, Elevated blood pressure reading in office without diagnosis of hypertension Patient Disposition: Home Condition: Stable Instructions: Antibiotic Form, Cold Symptoms (ED) Additional Instructions: Go straight to ER should your symptoms become worse or should any new symptoms develop Patient Language: Slovenian Prescriptions: New prednisone 20 mg tablet 60 mg PO DAILY Qty: 15 0RF No Action albuterol sulfate 90 mcg/actuation HFA aerosol inhaler 2 puff inhalation Q4-6H PRN (Reason: shortness of breath or wheezing) Qty: 8.5 0RF Elderberry See Rx Instructions BYMOUTH DAILY Rx Instructions: 1 orally daily; cholecalciferol (vitamin D3) 125 mcg (5,000 unit) capsule 125 mcg PO DAILY ascorbate calcium (vitamin C) 500 mg tablet 500 mg PO DAILY biotin 5,000 mcg tablet,disintegrating 10,000 mcg PO DAILY ferrous sulfate [Feosol] 325 mg (65 mg iron) tablet 325 mg PO DAILY multivitamin [Daily Multi-Vitamin] Tablet 1 tablet PO DAILY albuterol sulfate [Proventil HFA] 90 mcg/actuation HFA aerosol inhaler 1 inh inhalation Q4H Follow-up/Referrals: PHYSICIAN,PRODUCT TESTER [facility] [Primary Care Provider, Internal Medicine] - 08/21/25 Stand Alone Forms: Work/School Release IP Time of Disposition: 11:12
[2025-08-20 10:42] VITALS: BP 151/90; PULSE 109; RESP 16; TEMP 36.6; O2SAT 98
[2025-08-20] MEDS: dexAMETHasone SOD PHOS INJ 10 MG/ML 1 ML VIAL IM (11:14)
[2025-08-20 11:40] LABS: EDCOVIDSCREEN Negative (Negative); EDINFLUASCREEN Negative (Negative); EDINFLUBSCREEN Negative (Negative); EDSTREPNEGPOS1 Negative (Negative)
== END 2025-08-20 11:20 | disposition home or self-care (01) ==
PROVIDERS: Emergency Provider Registered Nurse
DX: J45.901 Unspecified asthma with (acute) exacerbation (principal); J06.9 Acute upper respiratory infection, unspecified; R03.0 Elevated blood-pressure reading, without diagnosis of hypertension; I10 Essential (primary) hypertension; E78.5 Hyperlipidemia, unspecified; E11.9 Type 2 diabetes mellitus without complications; Z20.822 Contact with and (suspected) exposure to COVID-19
CPT/HCPCS: 87081; 87426; 87804; 87880; 99213; G0463; J1100